=== PATIENT | female | born 1940 | race Caucasian/White ===

== ENCOUNTER 2018-08-11 10:09 | Emergency (ER) | payer OTHER, BC ==
[2018-08-11 12:14] LABS: Urine Bacteria <20 /HPF (<20); Urine Culture Reflex Order NOT NEEDED; Urine RBC <5 /HPF (NONE SEEN)
--- NOTE | 2018-08-11 13:27 | EDPHYS ---
Physician Documentation [facility] Name: Dinora Lea Age: 78 yrs Sex: Female : 1940 Arrival Date: 08/11/2018 Time: 10:13 Bed 16 Private MD: Andrea Rowell HPI: 08/11 11:56 This 78 yrs old Female presents to ER via Ambulatory with complaints of snw Vaginal Bleeding. 11:56 The patient presents with vaginal bleeding that is light, with no clots. Onset: The snw symptoms/episode began/occurred suddenly, this morning. Associated signs and symptoms: The patient has no apparent associated signs or symptoms. Severity of symptoms: At their worst the symptoms were very mild, mild. The patient has not experienced similar symptoms in the past. It is unknown whether or not the patient has recently seen a physician. + blood thinner, Savaysa. Historical: - Allergies: 10: Xarelto; aj1 10:23 Pradaxa; aj1 - Home Meds: 10:23 Multaq 400 mg oral tab 0.5 tab 2 times per day [Active]; levothyroxine 100 mcg tab 1 aj1 tab once daily [Active]; pravastatin 40 mg oral tab 1 tab once daily [Active]; losartan-hydrochlorothiazide 100-12.5 mg oral tab 1 tab once daily [Active]; Savaysa 60 mg oral tab 1 tab once daily [Active]; atenolol 50 mg Oral tab 1 tab once daily [Active]; clonazepam 1 mg Oral tab 1 tab once daily [Active]; doxycycline hyclate 50 mg Oral cap 1 cap once daily [Active]; amlodipine 2.5 mg tab 1 tab once daily [Active]; Vitamin D Oral 2000 unit daily [Active]; asthmanex 220 mcg as needed [Active]; pro air 90 mcg as needed [Active]; tramadol 50 mg Oral tab 1 tab as needed [Active]; - PMHx: 10:23 Atrial Fib; Hypothyroidism; Hypertension; Hyperlipidemia; Asthma; aj1 - PSHx: 10:23 bunion surgery; breast reduction; back surgery; cataract surgery; aj1 - Immunization history:: Flu vaccine is up to date. - Social history:: Smoking status: Patient/guardian denies using tobacco. - Ebola Screening: : Patient denies travel to an Ebola-affected area in the 21 days before illness onset. ROS: 11:42 Constitutional: Negative for fever, chills, and weight loss, Eyes: Negative for injury, snw pain, redness, and discharge, ENT: Negative for injury, pain, and discharge, Neck: Negative for injury, pain, and swelling, Cardiovascular: Negative for chest pain, palpitations, and edema, Respiratory: Negative for shortness of breath, cough, wheezing, and pleuritic chest pain, Abdomen/GI: Negative for abdominal pain, nausea, vomiting, diarrhea, and constipation, Back: Negative for injury and pain, : Negative for injury, discharge, and swelling, + bright red vaginal bleeding this am MS/Extremity: Negative for injury and deformity, Skin: Negative for injury, rash, and discoloration, Neuro: Negative for headache, weakness, numbness, tingling, and seizure. Exam: 11:42 Constitutional: This is a well developed, well nourished patient who is awake, alert, snw and in no acute distress. Head/Face: Normocephalic, atraumatic. Eyes: Pupils equal round and reactive to light, extra-ocular motions intact. Lids and lashes normal. Conjunctiva and sclera are non-icteric and not injected. Cornea within normal limits. Periorbital areas with no swelling, redness, or edema. ENT: Nares patent. No nasal discharge, no septal abnormalities noted. Tympanic membranes are normal and external auditory canals are clear. Oropharynx with no redness, swelling, or masses, exudates, or evidence of obstruction, uvula midline. Mucous membranes moist. Neck: Trachea midline, no thyromegaly or masses palpated, and no cervical lymphadenopathy. Supple, full range of motion without nuchal rigidity, or vertebral point tenderness. No Meningismus. Chest/axilla: Normal chest wall appearance and motion. Nontender with no deformity. No lesions are appreciated. Cardiovascular: Regular rate and rhythm with a normal S1 and S2. No gallops, murmurs, or rubs. Normal PMI, no JVD. No pulse deficits. Respiratory: Lungs have equal breath sounds bilaterally, clear to auscultation and percussion. No rales, rhonchi or wheezes noted. No increased work of breathing, no retractions or nasal flaring. Abdomen/GI: Soft, non-tender, with normal bowel sounds. No distension or tympany. No guarding or rebound. No evidence of tenderness throughout. guaiac negative Back: No spinal tenderness. No costovertebral tenderness. Full range of motion. Skin: Warm, dry with normal turgor. Normal color with no rashes, no lesions, and no evidence of cellulitis. MS/ Extremity: Pulses equal, no cyanosis. Neurovascular intact. Full, normal range of motion. Neuro: Awake and alert, GCS 15, oriented to person, place, time, and situation. Cranial nerves II-XII grossly intact. Motor strength 5/5 in all extremities. Sensory grossly intact. Cerebellar exam normal. Normal gait. Psych: Awake, alert, with orientation to person, place and time. Behavior, mood, and affect are within normal limits. Vital Signs: 10:23 BP 158 / 94; Pulse 58; Resp 18; Temp 98.0; Pulse Ox 98% on R/A; Weight 87.54 kg (R); aj1 Height 5 ft. 4 in. (162.56 cm); Pain 0/10; 11:23 BP 135 / 68; Pulse 60; Resp 17; Temp 98.0(O); Pulse Ox 100% ; Pain 0/10; rb1 12:20 BP 136 / 48; Pulse 58; Resp 16; Temp 98.1(O); Pulse Ox 98% on R/A; Pain 0/10; rb1 13:20 BP 141 / 61; Pulse 62; Resp 17; Temp 98.3(O); Pulse Ox 100% on R/A; Pain 0/10; rb1 10:23 Body Mass Index 33.13 (87.54 kg, 162.56 cm) aj1 MDM: 11:02 Patient medically screened. snw 13:46 Data reviewed: vital signs, nurses notes. Data interpreted: Pulse oximetry: on room air snw is 100 %. Interpretation: normal. Counseling: I had a detailed discussion with the patient and/or guardian regarding: the historical points, exam findings, and any diagnostic results supporting the discharge/admit diagnosis, the presence of at least one elevated blood pressure reading (>120/80) during this emergency department visit, lab results, radiology results, the need for outpatient follow up, to return to the emergency department if symptoms worsen or persist or if there are any questions or concerns that arise at home. Special discussion: Based on the history and exam findings, there is no indication for further emergent testing or inpatient evaluation. I discussed with the patient/guardian the need to see the OB Gyne specialist for further evaluation of the symptoms. 08/11 11:02 Order name: Urine Culture [facility] 08/11 11:02 Order name: Urine Microscopic Only; Complete Time: 12:17 [facility] 08/11 11:02 Order name: Cath; Complete Time: 12:13 [facility] 08/11 11:02 Order name: Urine Dipstick-Ancillary (obtain specimen); Complete Time: 12:13 [facility] 08/11 11:53 Order name: US Pelvis Complete; Complete Time: 13:58 [facility] 08/11 12:13 Order name: Urine Dipstick--Ancillary (enter results) ms Administered Medications: No medications were administered Disposition: 08/12 06:44 Co-signature as Attending Physician, Andrea Birmingham MD I agree with the assessment and lottie plan of care. Disposition: 08/11/18 13:26 Discharged to Home. Impression: Abnormal uterine and vaginal bleeding, unspecified. - Condition is Stable. - Discharge Instructions: Abnormal Uterine Bleeding, Hysteroscopy, Endometrial Biopsy. - Medication Reconciliation Form, Thank You Letter, Antibiotic Education, Prescription Opioid Use form. - Follow up: Private Physician; When: 2 - 3 days; Reason: Recheck today's complaints, Continuance of care, Re-evaluation by your physician. Follow up: Emergency Department; When: As needed; Reason: Worsening of condition. Signatures: Dispatcher [employer] EDDwan Jones RN RN aj1 Andrea Birmingham MD MD cha Therrien, Shelly, [employer]-C [employer]nw Chaparrita Duvall, RN RN rb1 Corrections: (The following items were deleted from the chart) 08/11 13:48 13:26 08/11/2018 13:26 Discharged to Home. Impression: Abnormal uterine and vaginal rb1 bleeding, unspecified. Condition is Stable. Forms are Medication Reconciliation Form, Thank You Letter, Antibiotic Education, Prescription Opioid Use. Follow up: Private Physician; When: 2 - 3 days; Reason: Recheck today's complaints, Continuance of care, Re-evaluation by your physician. Follow up: Emergency Department; When: As needed; Reason: Worsening of condition. snw 13:58 11:42 Constitutional: This is a well developed, well nourished patient who is awake, snw alert, and in no acute distress. Head/Face: Normocephalic, atraumatic. Eyes: Pupils equal round and reactive to light, extra-ocular motions intact. Lids and lashes normal. Conjunctiva and sclera are non-icteric and not injected. Cornea within normal limits. Periorbital areas with no swelling, redness, or edema. ENT: Nares patent. No nasal discharge, no septal abnormalities noted. Tympanic membranes are normal and external auditory canals are clear. Oropharynx with no redness, swelling, or masses, exudates, or evidence of obstruction, uvula midline. Mucous membranes moist. Neck: Trachea midline, no thyromegaly or masses palpated, and no cervical lymphadenopathy. Supple, full range of motion without nuchal rigidity, or vertebral point tenderness. No Meningismus. Chest/axilla: Normal chest wall appearance and motion. Nontender with no deformity. No lesions are appreciated. Cardiovascular: Regular rate and rhythm with a normal S1 and S2. No gallops, murmurs, or rubs. Normal PMI, no JVD. No pulse deficits. Respiratory: Lungs have equal breath sounds bilaterally, clear to auscultation and percussion. No rales, rhonchi or wheezes noted. No increased work of breathing, no retractions or nasal flaring. Abdomen/GI: Soft, non-tender, with normal bowel sounds. No distension or tympany. No guarding or rebound. No evidence of tenderness throughout. Back: No spinal tenderness. No costovertebral tenderness. Full range of motion. Skin: Warm, dry with normal turgor. Normal color with no rashes, no lesions, and no evidence of cellulitis. MS/ Extremity: Pulses equal, no cyanosis. Neurovascular intact. Full, normal range of motion. Neuro: Awake and alert, GCS 15, oriented to person, place, time, and situation. Cranial nerves II-XII grossly intact. Motor strength 5/5 in all extremities. Sensory grossly intact. Cerebellar exam normal. Normal gait. Psych: Awake, alert, with orientation to person, place and time. Behavior, mood, and affect are within normal limits. snw
--- NOTE | 2018-08-11 13:27 | ER ---
Nurse's Notes [facility] Name: Dinora Lea Age: 78 yrs Sex: Female : 1940 Arrival Date: 08/11/2018 Time: 10:13 Bed 16 Private MD: Diagnosis: Abnormal uterine and vaginal bleeding, unspecified Presentation: 08/11 10:17 Presenting complaint: Patient states: "I was getting ready to go to [facility] and I went aj1 to the bathroom and when I wiped it was full of blood." Patient reports vaginal bleeding. Transition of care: patient was not received from another setting of care. Onset of symptoms was August 11, 2018. Risk Assessment: Do you want to hurt yourself or someone else? Patient reports no desire to harm self or others. Initial Sepsis Screen: Does the patient meet any 2 criteria? No. Patient's initial sepsis screen is negative. Does the patient have a suspected source of infection? No. Patient's initial sepsis screen is negative. Care prior to arrival: None. 10:17 Method Of Arrival: Ambulatory aj1 10:17 Acuity: GINGER 3 aj1 Triage Assessment: 10:23 General: Appears in no apparent distress. comfortable, Behavior is calm, cooperative, aj1 appropriate for age. Pain: Denies pain. Neuro: Level of Consciousness is awake, alert, obeys commands. Cardiovascular: Patient's skin is warm and dry. Respiratory: Airway is patent Respiratory effort is even, unlabored, Respiratory pattern is regular, symmetrical. : Reports burning with urination, vaginal bleeding that is bright red. Derm: Skin is pink, warm \\T\\ dry. normal. Historical: - Allergies: 10:23 Xarelto; aj1 10:23 Pradaxa; aj1 - Home Meds: 10:23 Multaq 400 mg oral tab 0.5 tab 2 times per day [Active]; levothyroxine 100 mcg tab 1 aj1 tab once daily [Active]; pravastatin 40 mg oral tab 1 tab once daily [Active]; losartan-hydrochlorothiazide 100-12.5 mg oral tab 1 tab once daily [Active]; Savaysa 60 mg oral tab 1 tab once daily [Active]; atenolol 50 mg Oral tab 1 tab once daily [Active]; clonazepam 1 mg Oral tab 1 tab once daily [Active]; doxycycline hyclate 50 mg Oral cap 1 cap once daily [Active]; amlodipine 2.5 mg tab 1 tab once daily [Active]; Vitamin D Oral 2000 unit daily [Active]; asthmanex 220 mcg as needed [Active]; pro air 90 mcg as needed [Active]; tramadol 50 mg Oral tab 1 tab as needed [Active]; - PMHx: 10:23 Atrial Fib; Hypothyroidism; Hypertension; Hyperlipidemia; Asthma; aj1 - PSHx: 10:23 bunion surgery; breast reduction; back surgery; cataract surgery; aj1 - Immunization history:: Flu vaccine is up to date. - Social history:: Smoking status: Patient/guardian denies using tobacco. - Ebola Screening: : Patient denies travel to an Ebola-affected area in the 21 days before illness onset. Screenin:05 Abuse screen: Denies threats or abuse. Nutritional screening: No deficits noted. rb1 Tuberculosis screening: No symptoms or risk factors identified. Fall Risk None identified. Assessment: 11:05 General: Appears in no apparent distress. comfortable, Behavior is calm, cooperative, rb1 Denies fever. Pain: Denies pain. Neuro: Level of Consciousness is awake, alert, obeys commands, Oriented to person, place, time, situation. Cardiovascular: Capillary refill < 3 seconds is brisk in bilateral fingers. Respiratory: Airway is patent Respiratory effort is even, unlabored, Respiratory pattern is regular, symmetrical. GI: No signs and/or symptoms were reported involving the gastrointestinal system. : Reports burning with urination, vaginal bleeding that is bright red, since this morning, No clots. Derm: Skin is pink, warm \\T\\ dry. Musculoskeletal: Range of motion: intact in all extremities. 12:00 Reassessment: Patient appears in no apparent distress at this time. No changes from rb1 previously documented assessment. Family at bedside. 13:00 Reassessment: Patient appears in no apparent distress at this time. Patient and/or rb1 family updated on plan of care and expected duration. Pain level reassessed. Patient is alert, oriented x 3, equal unlabored respirations, skin warm/dry/pink. Provider at bedside. Patient denies pain at this time. Vital Signs: 10:23 BP 158 / 94; Pulse 58; Resp 18; Temp 98.0; Pulse Ox 98% on R/A; Weight 87.54 kg (R); aj1 Height 5 ft. 4 in. (162.56 cm); Pain 0/10; 11:23 BP 135 / 68; Pulse 60; Resp 17; Temp 98.0(O); Pulse Ox 100% ; Pain 0/10; rb1 12:20 BP 136 / 48; Pulse 58; Resp 16; Temp 98.1(O); Pulse Ox 98% on R/A; Pain 0/10; rb1 13:20 BP 141 / 61; Pulse 62; Resp 17; Temp 98.3(O); Pulse Ox 100% on R/A; Pain 0/10; rb1 10:23 Body Mass Index 33.13 (87.54 kg, 162.56 cm) aj1 ED Course: 10:13 Patient arrived in ED. as 10:18 Triage completed. aj1 10:23 Arm band placed on Patient placed in waiting room, Patient notified of wait time. aj1 11:02 Shivani Ramirez FNP-C is PHCP. snw 11:02 Andrea Birmingham MD is Attending Physician. snw 11:05 Patient has correct armband on for positive identification. Placed in gown. Bed in low rb1 position. Call light in reach. Side rails up X 1. Pulse ox on. NIBP on. Warm blanket given. 11:13 Chaparrita Duvall, RN is Primary Nurse. rb1 11:50 Straight cath inserted, using sterile technique, 16 Fr. Specimen obtained. rb1 12:54 Ultrasound completed. Patient tolerated well. sg3 12:55 US Pelvis Complete In Process Unspecified. EDMS 13:47 No provider procedures requiring assistance completed. Patient did not have IV access rb1 during this emergency room visit. Administered Medications: No medications were administered Outcome: 13:26 Discharge ordered by . snw 13:47 Discharged to home ambulatory, with family. rb1 13:47 Condition: stable 13:47 Discharge instructions given to patient, Instructed on discharge instructions, follow up and referral plans. Demonstrated understanding of instructions, follow-up care, Prescriptions given X none 13:48 Patient left the ED. rb1 Signatures: Dispatcher [employer] EDMS Dawn Cotton RN RN aj1 Shivani Ramirez FNP-C FNP-Janelle Welsh Shelby, RN RN Chaparrita Duvall, RN RN rb1 Claudette Gracia sg3 Corrections: (The following items were deleted from the chart) 12:14 11:50 Straight cath inserted, using sterile technique, 16 Fr. Specimen obtained. ss ss
--- NOTE | 2018-08-11 13:51 | RAD REPORT ---
EXAM DESCRIPTION: US - Pelvis Complete - 08/11/2018 12:56 pm CLINICAL HISTORY: Vaginal bleeding, pelvic pain COMPARISON: None. TECHNIQUE: Transabdominal pelvic sonography was performed. FINDINGS: Endometrium measures up to 5 mm in thickness. No discrete endometrial mass or polyp identi fiable. No myometrial masses seen. Uterus is 5.9 x 2.5 x 5.3 cm. Neither ovary was identifiable likely atrophic and obscured by bowel. No adnexal mass seen. No blood or fluid in the cul de sac. IMPRESSION: Endometrium is 5 mm in thickness with homogeneous echogenicity. No endometrial mass or p olyp identifiable. No myometrial mass in a normal-sized uterus. Nonvisualization of both ovaries. This is likely due to atrophy and adjacent bowel. No adnexal mass.
[2018-08-11 13:59] LABS: Urine Blood TRACE (NEG); Urine Glucose NEGATIVE (NEG); Urine Protein NEGATIVE (NEG); Urine Specific Gravity 1.015 (1.005-1.030)
== END 2018-08-11 13:48 | disposition home or self-care (01) ==
LOC: ER 10:09
DX: N93.9 Abnormal uterine and vaginal bleeding, unspecified (principal); I48.91 Unspecified atrial fibrillation; E03.9 Hypothyroidism, unspecified; I10 Essential (primary) hypertension; E78.5 Hyperlipidemia, unspecified; J45.909 Unspecified asthma, uncomplicated; Z88.8 Allergy status to other drugs, medicaments and biological substances
CPT/HCPCS: 51702; 76856; 81003; 81015; 87086; 87088; 99284

== ENCOUNTER 2019-07-21 15:15 | Emergency (ER) | payer OTHER, BC ==
--- OUTSIDE RECORDS SUMMARY | 2019-07-21 15:18 | XMS REPORT ---
:1940 Author Organization [facility] t Address [address] [place] [address] Care Team Providers Name Role Phone Unavailable Unavailable Unavailable Payers Payer Name Policy Type Policy Number Effective Date Expiration D ate Problems This patient has no known problems. Allergies, Adverse Reactions, Alerts Allergy Name Allergy Status Severity Reaction(s) Onset Inactive Treat ing Comments Type Date Date Clinician dabigatran DA Active MO 2018-08 etexilate - 00:00:0 0 rivaroxaban DA Active MO 2018-08 00:00:0 0 Medications This patient has no known medications. Results Test Description Test Time Test Comments Text Results Atomic Results Result Comments SURG 2018-08-30 RUN DATE: 16:31:00 08/30/18 [facility] - LAB *LIVE* PAGE 1 RUN TIME: 1632 Specimen Inquiry RUN USER: INTERFACE PATIENT: MARIBELL GHOTRA LOC: [facility] U #: [id number] AGE/SX: 78/F ROOM: RE08/29/18REG DR: Rajni Smith : BED: DIS: STATUS: DEP [facility] TLOC: SPEC #: [id number] RECD: 08/29/18 STATUS: TEODORA RE #: [id number] ISADORA: -[id number]: Rajni Smith MD ENTERED: 08/29/18 SP TYPE: SURG O THR DR: Julienne Best MD ORDERED: SURG PATH LVL 07/09 COPIES TO: Rajni Smith MD [address] [place] [id number] Julienne Best MD [address] [address] HISTOLOGY: TISSUE ID BLK PCS RYAN LEV PROCEDURE DISPOSITION ____ ___ ___ ___ ENDOMETRIUM, NO A 1 ENDOMETRIUM, NO B 1 PROCE DURES: SURG PATH LVL 4 (08/29/18) TISSUES: A. ENDOMETRIUM, NOS - ENDOMETRIAL POLY P B. ENDOMETRIUM, NOS - ENDOMETRIAL CURRETING CLINICAL HISTORY POST MENOPAUSAL BLEED ING -N95.0 CPT CODES CPT CODE(S): 55692O1 , , , , , , FINAL DIAGNOSIS A. Uterus, endometrium, polypectomy: BENIGN ENDOCERVI RAJI POLYP WITH NABOTHIAN CYSTS B. Uterus, endometrium, curettage: BENIGN, HIGHLY FRAGMENTE D SQUAMOUS ECTOCERVIX, GLANDULAR ENDOCERVIX, AND ENDOMETRIAL GLANDS CONTINUED ON NEXT PAGE RUN DATE: 08/30/18 [facility] - LAB *LIVE* PAGE 2 RUN TIME: 1632 Specimen Inquiry RUN USER: INTERFACE SPEC #: [facility]:[id number] PATIENT: MARIBELL LEONG #[id number] (Continued) GROSS [place] CRIPTION A. Endometrial polyp. Received in formalin is a reyna polypoid tissue fragment, 1.0 x 0.8 x 0.3 cm. The specimen is trisected and reveals dense reyna soft tissue. The entire specimen submitted as A. B. Endometrial curettings. Received in formalin are fragments of brown soft tissue admixed with dark brown blood clots and hemorrhagic mucoid material, 0.6 x 0.5 x 0.2 cm in aggr egate. The entire specimen submitted as B. ba/nr Grossing performed at [facility] Pathology, [address], [address], [place], [place] [address]. Irrigation Technician: Mau Edwards M.D. MICROSCOPIC DESCRIPTION A. Endometrial polyp. Sections demonstrate a polypoid segment of tissu e consisting of endocervical mucosa with nabothian cysts. Edematous stroma is also identified. No endometrial tissue is present. No malignant features are seen. B. Endometrial curettings. Sect ions demonstrate fragments of endocervical glands and squamous ectocervix. Scant fragments of fra gmented endometrial glands are also identified. Prominent hemorrhage is seen. The endometrial gl and tissue is insufficient for endometrial dating. No evidence of hyperplasia or atypia is seen. Signed SIGNATURE ON FILE Stevie Alexander 08/30/18 1631 END OF REPORT BASIC METABOLIC PANEL 2018-08-29 11:29:00 Test Item Value Reference Range Comments SODIUM (test code = NA) 134 mmol/L 134-147 POTASSIUM (test code = K) 4.5 mmol/L 3.4-5.0 CHLORIDE (test code = CL) 99 mmol/L 100-108 CARBON DIOXIDE (test code = CO2) 27 mmol/L 21-32 ANION GAP (test code = GAP) 8.0 GAP calc 4.0-15.0 GLUCOSE (test code = GLU) 106 MG/DL 70-110 BLOOD UREA NITROGEN (test code = BUN) 11 MG/DL 7-18 GLOMERULAR FILTRATION RATE (test code = GFR) 46 estGFR >60 CREATININE (test code = CREAT) 1.2 MG/DL 0.6-1.0 CALCIUM (test code = CA) 9.5 MG/DL 8.5-10.1 CBC W/AUTO [id number] 11:27:00 Test Item Value Reference Range Comments WHITE BLOOD CELL (test code = WBC) 8.0 K/mm3 3.5-11.0 RED BLOOD CELL (test code = RBC) 4.12 M/mm3 4.70-6.10 HEMOGLOBIN (test code = HGB) 13.2 G/DL 10.4-14.9 HEMATOCRIT (test code = HCT) 38.3 % 31.5-44.1 MEAN CELL VOLUME (test code = MCV) 93.0 Fl 84.5-98.6 MEAN CELL HGB (test code = MCH) 32.0 pg 27.0-34.2 MEAN CELL HGB CONCETRATION (test code = MCHC) 34.5 G/DL 31 .5-34.0 RED CELL DISTRIBUTION WIDTH (test code = RDW) 11.9 SD 11 .5-14.5 PLATELET COUNT (test code = PLT) 232.0 K/mm3 150-450 MEAN PLATELET VOLUME (test code = MPV) 10.90 fL 7.0-10.5 NEUTROPHIL % (test code = NT%) 52.4 % 40-76 LYMPHOCYTE % (test code = LY%) 35.5 % 20.5-51.1 MONOCYTE % (test code = MO%) 10.2 % 1.7-9.3 EOSINOPHIL % (test code = EO%) 1.5 % 0.0-6.0 BASOPHIL % (test code = BA%) 0.4 % 0.0-2.0 NEUTROPHIL # (test code = NT#) 4.21 K/mm3 1.8-7.6 LYMPHOCYTE # (test code = LY#) 2.9 K/mm3 0.6-3.2 MONOCYTE # (test code = MO#) 0.8 K/mm3 0.3-1.1 EOSINOPHIL # (test code = EO#) 0.1 K/mm3 0.0-0.4 BASOPHIL # (test code = BA#) 0.0 K/mm3 0.0-0.1 MANUAL DIFF REQUIRED (test code = MDIFF) NO DIFF/SCN CRITERI A PROTHROMBIN [id number] 11:18:00 Test Item Value Reference Range Comments PT PATIENT (test code = PTP) 11.3 SECONDS 9.3-12.9 INTERNATIONAL NORMAL RATIO (test code = INR) 0.98 INR Unit 0.8 -1.2 THROMBOPLASTIN TIME [id number] 11:18:00 Test Item Value Reference Range Comments THROMBOPLASTIN TIME PARTIAL (test code = PTT) 40.4 SECONDS 26 -35
[2019-07-21] MEDS ORDERED: NA CHLORIDE 0.9% 1,000 ML ONE (15:49)
[2019-07-21 16:08] LABS: Urine Bacteria NONE SEEN /HPF (<20); Urine Culture Reflex Order NOT NEEDED; Urine Mucus 1+ /HPF (NONE SEEN)
[2019-07-21 16:08] LABS: Urine Blood TRACE (NEG); Urine Glucose NEGATIVE (NEG); Urine Protein NEGATIVE (NEG); Urine Specific Gravity 1.025 (1.005-1.030)
[2019-07-21 16:10] LABS: Absolute Lymphocytes (CBC) 1.8 K/uL (0.7-4.9); Basophils % 0.5 % (0-1.3); Hematocrit 37.6 % (36.0-45.0); Lymphocytes % 19.5 % (15.3-44.8); MPV 7.8 fL (7.6-11.3); RBC Red Blood Cell Count 4.04 M/uL (3.86-4.86)
[2019-07-21 16:12] LABS: Protime INR 1.91
[2019-07-21 16:27] LABS: Albumin 4.2 g/dL (3.4-5.0); Bilirubin Direct 0.3 mg/dL (0-0.2); Bilirubin Total 0.9 mg/dL (0.2-1.0); Potassium 3.6 mmol/L (3.5-5.1); Protein, Total 7.8 g/dL (6.4-8.2)
--- NOTE | 2019-07-21 17:03 | RAD REPORT ---
EXAM DESCRIPTION: CT - Abdomen Pelvis Wo Contrast - 07/21/2019 4:47 pm CLINICAL HISTORY: ABD PAIN COMPARISON: Abdomen Pelvis W Contrast dated 07/16/2019 TECHNIQUE: Axial [address] imaging of the abdomen and pelvis was performed without IV contrast. No IV contrast was given because of allergy, abnormal renal function, patient refusal or physician re quest. No oral contrast administered. All CT scans are performed using dose optimization technique as appropriate and may include automated exposure control or mA/KV adjustment according to patient size. FINDINGS: No suspicious findings in the lung bases. The liver, spleen and pancreas show no suspicious findings on non-contrast imaging. Gallbladder and b iliary tree are also without suspicious finding. No hydronephrosis or suspicious renal mass. No significant adrenal finding. Isodense renal masses an d pyelonephritis cannot be excluded in the absence of IV contrast. Phleboliths are seen along the pel raj floor. Uterus and ovaries show no suspicious findings. Urinary bladder is only partially filled. Air is seen within the lumen. This is usually associated wi th the catheter procedure rather than a gas-forming organism. This needs correlation with any procedu res performed. No dilated bowel loops or bowel wall thickening. No appendicitis findings. No free air, free fluid or inflammatory stranding. No hernia, mass or bulky lymphadenopathy. Disc and bony degenerative changes are present. No acute or pathologic bone process seen. IMPRESSION: No bowel obstruction, free air or surgically emergent finding identifiable. GI or CARPENTRY SUPERVISOR pr ocess seen. Air is present in the partially filled urinary bladder. This is usually associated with a catheter pr ocedure rather than gas-forming infection within the bladder. Correlation is needed with any such pro cedure performed. No hydronephrosis, suspicious mass or other acute renal finding. Full assessment is limited is the absence of IV contrast.
--- NOTE | 2019-07-21 17:46 | EDPHYS ---
Physician Documentation [facility] Name: Dinora Lea Age: 79 yrs Sex: Female : 1940 Arrival Date: 07/21/2019 Time: 15:17 Bed 15 Private MD: Andrea Rowell HPI: 07/20 15:49 This 79 yrs old Female presents to ER via Wheelchair with complaints of pm1 Abdominal Pain. 15:49 The patient presents with abdominal pain in the lower abdomen. Onset: The pm1 symptoms/episode began/occurred 3 week(s) ago. The symptoms do not radiate. Associated signs and symptoms: Pertinent positives: diarrhea, nausea, Pertinent negatives: dysuria, fever. The symptoms are described as "bloating and discomfort". Modifying factors: The symptoms are alleviated by nothing, the symptoms are aggravated by food. The patient has been recently seen by a physician: Dr. Smith today. Patient with cystoscopy today. Dr. Smith sent the patient to the ER for further evaluation. Historical: - Allergies: 15:44 Pradaxa; iw 15:44 Xarelto; iw - Home Meds: 15:44 Multaq 400 mg Oral tab 0.5 tab 2 times per day [Active]; levothyroxine 100 mcg tab 1 iw tab once daily [Active]; pravastatin 40 mg Oral tab 1 tab once daily [Active]; losartan-hydrochlorothiazide 100-12.5 mg Oral tab 1 tab once daily [Active]; Savaysa 60 mg Oral tab 1 tab once daily [Active]; amlodipine 2.5 mg tab 1 tab once daily [Active]; Vitamin D Oral 2000 unit daily [Active]; atenolol 50 mg Oral tab 1 tab once daily [Active]; clonazepam 1 mg Oral tab 1 tab once daily [Active]; asthmanex 220 mcg as needed [Active]; doxycycline hyclate 50 mg Oral cap 1 cap once daily [Active]; - PMHx: 15:44 Asthma; Atrial Fib; Hyperlipidemia; Hypertension; Hypothyroidism; ADD/ADHD; iw - PSHx: 15:44 bunion surgery; breast reduction; back surgery; cataract surgery; iw - Immunization history:: Adult Immunizations up to date. - Social history:: Smoking status: Patient denies any tobacco usage or history of. ROS: 15:49 Constitutional: Negative for fever, chills, and weight loss, Neck: Negative for injury, pm1 pain, and swelling, Cardiovascular: Negative for chest pain, palpitations, and edema, Respiratory: Negative for shortness of breath, cough, wheezing, and pleuritic chest pain. 15:49 Back: Negative for injury and pain, : Negative for injury, bleeding, discharge, and swelling, MS/Extremity: Negative for injury and deformity, Skin: Negative for injury, rash, and discoloration, Neuro: Negative for headache, weakness, numbness, tingling, and seizure. 15:49 Abdomen/GI: Positive for abdominal pain, nausea, diarrhea, Negative for vomiting, constipation. Exam: 15:49 Constitutional: This is a well developed, well nourished patient who is awake, alert, pm1 and in no acute distress. Head/Face: Normocephalic, atraumatic. Neck: Trachea midline, no thyromegaly or masses palpated, and no cervical lymphadenopathy. Supple, full range of motion without nuchal rigidity, or vertebral point tenderness. No Meningismus. Chest/axilla: Normal chest wall appearance and motion. Nontender with no deformity. No lesions are appreciated. 15:49 Back: No spinal tenderness. No costovertebral tenderness. Full range of motion. Skin: Warm, dry with normal turgor. Normal color with no rashes, no lesions, and no evidence of cellulitis. MS/ Extremity: Pulses equal, no cyanosis. Neurovascular intact. Full, normal range of motion. 15:49 Cardiovascular: Exam negative for acute changes, Rate: normal, Pulses: no pulse deficits are appreciated, Edema: is not appreciated. 15:49 Respiratory: Exam negative for acute changes, respiratory distress, shortness of breath. 15:49 Abdomen/GI: Exam negative for acute changes, Inspection: abdomen appears normal, Palpation: abdomen is soft and non-tender, in all quadrants, mass, is not appreciated, rebound tenderness, is not appreciated. 15:49 Neuro: Exam negative for acute changes, Orientation: is normal, Mentation: is normal, Motor: is normal, moves all fours. Vital Signs: 15:36 BP 149 / 72; Pulse 60; Resp 16 S; Temp 97.7(TE); Pulse Ox 99% on R/A; Weight 84.82 kg; iw Height 5 ft. 5 in. (165.10 cm); Pain 0/10; 16:34 BP 131 / 50; Pulse 53; Resp 17 S; Pulse Ox 100% on R/A; jl7 17:24 BP 130 / 50; Pulse 55; Resp 16 S; Pulse Ox 100% on R/A; jl7 15:36 Body Mass Index 31.12 (84.82 kg, 165.10 cm) iw MDM: 15:20 Patient medically screened. pm1 17:22 Data reviewed: vital signs. Data interpreted: Pulse oximetry: on room air is 100 %. pm1 Interpretation: normal. 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 07/20 15:35 Order name: Basic Metabolic Panel; Complete Time: 16:30 pm1 07/20 15:35 Order name: CBC with Diff; Complete Time: 16:30 pm1 07/20 15:35 Order name: Creatinine for Radiology; Complete Time: 16:30 pm1 07/20 15:35 Order name: Hepatic Function; Complete Time: 16:30 pm1 07/20 15:35 Order name: Lipase; Complete Time: 16:30 pm1 07/20 15:36 Order name: Urine Microscopic Only; Complete Time: 16:15 pm1 07/20 15:35 Order name: IV Saline Lock; Complete Time: 16:26 pm1 07/20 15:42 Order name: Lactate; Complete Time: 16:34 pm1 07/20 15:47 Order name: PT-INR; Complete Time: 16:30 pm1 07/20 15:58 Order name: Urine Dipstick--Ancillary (enter results); Complete Time: 16:15 bd 07/20 16:32 Order name: Abdomen ; Complete Time: 17:21 EDMS 07/20 15:35 Order name: Labs collected and sent; Complete Time: 16:26 pm1 07/20 15:35 Order name: Urine Dipstick-Ancillary (obtain specimen); Complete Time: 16:26 pm1 Administered Medications: 16:05 Drug: NS 0.9% 1000 ml Route: IV; Rate: 1000 ml; Site: left forearm; 7 16:45 Follow up: IV Pause: 07/21/2019 16:45; IV Pause Reason: Patient to CT jl7 17:20 Follow up: IV Resume: 07/21/2019 17:20; IV Resume Reason: Patient returned from CT jl7 18:32 Follow up: Response: No adverse reaction; IV Status: Completed infusion; IV Intake: jl7 1000ml 18:10 Drug: Bentyl 20 mg Route: PO; jl7 18:32 Follow up: Response: No adverse reaction jl Disposition: 07/21 13:59 Co-signature as Attending Physician, Andrea Birmingham MD I agree with the assessment and [facility] plan of care. Disposition: 07/21/19 17:44 Discharged to Home. Impression: Unspecified abdominal pain, Dehydration. - Condition is Stable. - Discharge Instructions: Abdominal Pain, Adult, Dehydration, Elderly, Rehydration, Elderly. - Prescriptions for Bentyl 20 mg Oral Tablet - take 1 tablet by ORAL route every 6 hours As needed; 20 tablet. - Medication Reconciliation Form, Thank You Letter, Antibiotic Education, Prescription Opioid Use form. - Follow up: Emergency Department; When: As needed; Reason: Worsening of condition. Follow up: Private Physician; When: 2 - 3 days; Reason: Recheck today's complaints, Continuance of care, Re-evaluation by your physician. - Problem is new. - Symptoms have improved. Signatures: Dispatcher [employer] Andrea Haque MD MD cha Williams, Irene, Isaac Thrasher RN, NP GEOSPATIAL APPLICATIONS DEVELOPER pm1 Cristo Adhikari RN RN jl7 Corrections: (The following items were deleted from the chart) 07/20 16:32 15:38 Abdomen Pelvis W Con+CT.RAD.BRZ ordered. [facility] 17:46 17:44 07/21/2019 17:44 Discharged to Home. Impression: Unspecified abdominal pain. pm1 Condition is Stable. Forms are Medication Reconciliation Form, Thank You Letter, Antibiotic Education, Prescription Opioid Use. Follow up: Emergency Department; When: As needed; Reason: Worsening of condition. Follow up: Private Physician; When: 2 - 3 days; Reason: Recheck today's complaints, Continuance of care, Re-evaluation by your physician. Problem is new. Symptoms have improved. pm1 18:33 17:46 07/21/2019 17:44 Discharged to Home. Impression: Unspecified abdominal pain; jl7 Dehydration. Condition is Stable. Discharge Instructions: Abdominal Pain, Adult. Forms are Medication Reconciliation Form, Thank You Letter, Antibiotic Education, Prescription Opioid Use. Follow up: Emergency Department; When: As needed; Reason: Worsening of condition. Follow up: Private Physician; When: 2 - 3 days; Reason: Recheck today's complaints, Continuance of care, Re-evaluation by your physician. Problem is new. Symptoms have improved. pm1
--- NOTE | 2019-07-21 17:46 | ER ---
Nurse's Notes [facility] Name: Dinora Lea Age: 79 yrs Sex: Female : 1940 Arrival Date: 07/21/2019 Time: 15:17 Bed 15 Private MD: Diagnosis: Unspecified abdominal pain;Dehydration Presentation: 07/20 15:36 Chief complaint: Patient states: abd bloating and discomfort X 3 weeks, worse when she iw eats, feels nauseated and has diarrhea when she eats, had CT and labs done Sunday , was seen by Dr. Smith today, had cystoscopy done to look for tumors in her bladder and was negative, also has been having urinary frequency at night. Coronavirus screen: Proceed with normal triage. Patient denies a cough. Patient denies shortness of breath or difficulty breathing. Patient denies measured and/or subjective temperature greater than 100.4F prior to today's visit. Patient denies travel on a cruise ship or to a country the [facility] currently lists as an affected area. Patient denies contact with known and/or suspected case of COVID-19. Ebola Screen: Patient negative for fever greater than or equal to 101.5 degrees Fahrenheit, and additional compatible Ebola Virus Disease symptoms Patient denies exposure to infectious person. Patient denies travel to an Ebola-affected area in the 21 days before illness onset. No symptoms or risks identified at this time. Initial Sepsis Screen: Does the patient meet any 2 criteria? No. Patient's initial sepsis screen is negative. Does the patient have a suspected source of infection? No. Patient's initial sepsis screen is negative. Risk Assessment: Do you want to hurt yourself or someone else? Patient reports no desire to harm self or others. Onset of symptoms was July 07, 2019. 15:36 Method Of Arrival: Wheelchair iw 15:36 Acuity: GINGER 3 iw Historical: - Allergies: 15:44 Pradaxa; iw 15:44 Xarelto; iw - Home Meds: 15:44 Multaq 400 mg Oral tab 0.5 tab 2 times per day [Active]; levothyroxine 100 mcg tab 1 iw tab once daily [Active]; pravastatin 40 mg Oral tab 1 tab once daily [Active]; losartan-hydrochlorothiazide 100-12.5 mg Oral tab 1 tab once daily [Active]; Savaysa 60 mg Oral tab 1 tab once daily [Active]; amlodipine 2.5 mg tab 1 tab once daily [Active]; Vitamin D Oral 2000 unit daily [Active]; atenolol 50 mg Oral tab 1 tab once daily [Active]; clonazepam 1 mg Oral tab 1 tab once daily [Active]; asthmanex 220 mcg as needed [Active]; doxycycline hyclate 50 mg Oral cap 1 cap once daily [Active]; - PMHx: 15:44 Asthma; Atrial Fib; Hyperlipidemia; Hypertension; Hypothyroidism; ADD/ADHD; iw - PSHx: 15:44 bunion surgery; breast reduction; back surgery; cataract surgery; iw - Immunization history:: Adult Immunizations up to date. - Social history:: Smoking status: Patient denies any tobacco usage or history of. Screenin:45 Abuse screen: Denies threats or abuse. Denies injuries from another. Nutritional jl7 screening: No deficits noted. Tuberculosis screening: No symptoms or risk factors identified. Fall Risk IV access (20 points). Total Felder Fall Scale indicates No Risk (0-24 pts). Assessment: 15:45 General: Appears in no apparent distress. uncomfortable, Behavior is calm, cooperative, jl7 appropriate for age. Pain: Denies pain. Neuro: Level of Consciousness is awake, alert, obeys commands, Oriented to person, place, time, situation. Cardiovascular: Patient's skin is warm and dry. Respiratory: Airway is patent Respiratory effort is even, unlabored, Respiratory pattern is regular, symmetrical. GI: Abdomen is round . . Reports bloating, diarrhea. Derm: Skin is pink, warm \T\ dry. 17:00 Reassessment: Patient appears in no apparent distress at this time. No changes from jl7 previously documented assessment. Patient and/or family updated on plan of care and expected duration. Pain level reassessed. Patient is alert, oriented x 3, equal unlabored respirations, skin warm/dry/pink. 17:50 Reassessment: ERP at bedside discussing results and POC. jl7 17:55 Reassessment: Pt will be discharged once fluids are done infusing. jl7 18:18 Reassessment: Pt requesting to speak with ERP again prior to discharge, ERP notified. jl7 18:27 Reassessment: ERP at bedside. jl7 Vital Signs: 15:36 BP 149 / 72; Pulse 60; Resp 16 S; Temp 97.7(TE); Pulse Ox 99% on R/A; Weight 84.82 kg; iw Height 5 ft. 5 in. (165.10 cm); Pain 0/10; 16:34 BP 131 / 50; Pulse 53; Resp 17 S; Pulse Ox 100% on R/A; jl7 17:24 BP 130 / 50; Pulse 55; Resp 16 S; Pulse Ox 100% on R/A; jl7 15:36 Body Mass Index 31.12 (84.82 kg, 165.10 cm) iw ED Course: 15:17 Patient arrived in ED. ag5 15:19 Isaac Haines, ROSELYN is PHCP. pm1 15:19 Andrea Birmingham MD is Attending Physician. pm1 15:36 Cristo Adhikari RN is Primary Nurse. jl7 15:41 Triage completed. iw 15:44 Arm band placed on. iw 15:45 Patient has correct armband on for positive identification. Placed in gown. Bed in low jl7 position. Call light in reach. Side rails up X2. shelter monitor on. Pulse ox on. NIBP on. Warm blanket given. 16:00 Initial lab(s) drawn, by me, sent to lab. Urine collected: clean catch specimen, clear. jl7 Inserted saline lock: 20 gauge in right forearm, using aseptic technique. Blood collected. 16:48 Abdomen In Process Unspecified. EDMS 18:00 No provider procedures requiring assistance completed. jl7 18:33 IV discontinued, intact, bleeding controlled, No redness/swelling at site. Pressure jl7 dressing applied. Administered Medications: 16:05 Drug: NS 0.9% 1000 ml Route: IV; Rate: 1000 ml; Site: left forearm; jl7 16:45 Follow up: IV Pause: 07/21/2019 16:45; IV Pause Reason: Patient to CT jl7 17:20 Follow up: IV Resume: 07/21/2019 17:20; IV Resume Reason: Patient returned from CT jl7 18:32 Follow up: Response: No adverse reaction; IV Status: Completed infusion; IV Intake: jl7 1000ml 18:10 Drug: Bentyl 20 mg Route: PO; jl7 18:32 Follow up: Response: No adverse reaction jl7 Intake: 18:32 IV: 1000ml; Total: 1000ml. jl7 Outcome: 17:44 Discharge ordered by . pm1 18:32 Discharged to home ambulatory. jl7 18:32 Condition: stable 18:32 Discharge instructions given to patient, Instructed on discharge instructions, follow up and referral plans. medication usage, Demonstrated understanding of instructions, follow-up care, medications, Prescriptions given X 1. 18:33 Patient left the ED. jl7 Signatures: Dispatcher [employer] Vikki Jennings RN RN iw Isaac Haines NP COMMUNITY RELATIONS REP pm1 Emily Emmanuel 5 Cristo Adhikari RN RN jl7 Mitzi Sears 5 Corrections: (The following items were deleted from the chart) 18:20 17:57 IV discontinued, Pressure dressing applied, Jaylen Nara
[2019-07-21] MEDS ORDERED: DICYCLOMINE HCL 10 MG CAP ONE (18:19)
[2019-07-21 18:38] VITALS: TEMP 97.7
[2019-07-21 18:40] VITALS: O2SAT 100
[2019-07-21 18:41] VITALS: BP 130/50
== END 2019-07-21 18:33 | disposition home or self-care (01) ==
LOC: ER 15:15
DX: E86.0 Dehydration (principal); I10 Essential (primary) hypertension; E03.9 Hypothyroidism, unspecified; E78.5 Hyperlipidemia, unspecified; I48.91 Unspecified atrial fibrillation; Z88.8 Allergy status to other drugs, medicaments and biological substances
CPT/HCPCS: 85025; 80048; 36415; 85610; 80076; 83605; 83690; 74176; J7030; 81003; 81015; 96360; 96361; 99284

== ENCOUNTER 2022-09-26 15:30 | Inpatient (IN) | payer OTHER, BC ==
[2022-09-26] MEDS ORDERED: FENTANYL CITR 100 MCG/2 ML ONE (16:05)
[2022-09-26] MEDS ORDERED: NA CHLORIDE 0.9% 500 ML ONE (16:05)
[2022-09-26] MEDS ORDERED: ONDANSETRON 4 MG/2 ML VIAL ONE (16:05)
[2022-09-26 16:11] LABS: Protime INR 1.55
[2022-09-26 16:12] LABS: Hematocrit 35.6 % (36.0-45.0); Lymphocytes % 5.1 % (15.3-44.8); MCV 96.9 fL (80-100); MPV 6.7 fL (7.6-11.3); RBC Red Blood Cell Count 3.67 M/uL (3.86-4.86)
[2022-09-26 16:21] LABS: Albumin 3.2 g/dL (3.4-5.0); Bilirubin Direct 0.3 mg/dL (0-0.2); Bilirubin Indirect, Calculated 0.5 mg/dL (0.2-0.8); Bilirubin Total 0.8 mg/dL (0.2-1.0); Magnesium 1.6 mg/dL (1.6-2.4); Potassium 3.3 mEq/L (3.5-5.1); Protein, Total 6.7 g/dL (6.4-8.2); Troponin High Sensitivity 8.4 pg/mL (<58.9)
--- NOTE | 2022-09-26 16:27 | RAD REPORT ---
EXAM DESCRIPTION: Larry Single View09/26/2022 4:06 pm CLINICAL HISTORY: cough COMPARISON: none FINDINGS: The lungs appear clear of acute infiltrate. The heart is normal size IMPRESSION: No acute abnormalities displayed
--- NOTE | 2022-09-26 17:16 | RAD REPORT ---
EXAM DESCRIPTION: CT - Head C Spine Cap Wo Con - 09/26/2022 4:53 pm CLINICAL HISTORY: Fall. Generalized weakness. Head and neck pain. Chest and abdominal pain TECHNIQUE: Computed axial tomography of head, neck, chest, abdomen and pelvis obtained. IV and oral contrast not requested. Coronal and sagittal reconstruction performed. All CT scans are performed using dose optimization technique as appropriate and may include automated exposure control or mA/KV adjustment according to patient size. COMPARISON: CT abdomen 2019 FINDINGS: An intracranial bleed is not seen. Mild to moderate low-density areas within periventricular, deep an d subcortical white matter probably ischemic changes secondary to small vessel disease The ventricles are normal in caliber. An extra-axial fluid collection is not noted. . Fluid within the sinuses/mastoids is not seen. A cervical fracture is not seen. No dislocation is noted. Minimal anterior subluxation C4 on C5-and C 5 on C6. Spondylosis cervical spine The evaluation of mediastinum, maddison, vessels, solid organs and bowel are limited secondary to the lac k of contrast administration. Lungs are generally clear. No pleural effusion. No pericardial effusion No mediastinal or hilar lymphadenopathy The liver,spleen, pancreas, adrenals, and kidneys appear grossly normal. The wall of the ascending colon appears mildly thickened. Mild stranding within the adjacent fat IMPRESSION: No acute intracranial abnormality is seen. A cervical fracture is not visualized. If the patient continues have symptoms to suggest intracrania l/spinal cord pathology MRI be recommended Wall of the ascending colon appears mildly thickened. This may indicate a mild colitis
[2022-09-26 17:44] LABS: Specific Gravity 1.009 (1.005-1.030); Urine Bacteria 20-50 /HPF (<20); Urine Bilirubin NEGATIVE (Negative); Urine Blood Negative (Negative); Urine Clarity Extremely Turbid (Clear); Urine Color Yellow (Yellow); Urine Glucose NEGATIVE (Negative); Urine Mucus Slight /HPF (None Seen); Urine Protein NEGATIVE (Negative); Urine RBC <5 /HPF (None Seen); Urine Urobilinogen Normal (Normal)
[2022-09-26] MEDS ORDERED: Mastisol Adhesive Liq ONE (17:59)
--- NOTE | 2022-09-26 18:24 | ER ---
Nurse's Notes [facility] Name: Dinora Lea Age: 82 yrs Sex: Female : 1940 Arrival Date: 09/26/2022 Time: 15:30 Bed 2 Private MD: Diagnosis: Syncope Near;Weakness;Laceration without foreign body, right lower leg-SKIN TEAR, 12 CM;Indeterminate colitis-RIGHT, MILD;Abdominal pain, unspecified;Elevated white blood cell count;Hypokalemia Presentation: 09/26 15:32 Chief complaint: EMS states: GENERAL WEAKNESS AND RLE SKIN TEAR. Coronavirus screen: At bp this time, the client does not indicate any symptoms associated with coronavirus-19. Ebola Screen: No symptoms or risks identified at this time. Initial Sepsis Screen: Does the patient meet any 2 criteria? No. Patient's initial sepsis screen is negative. Does the patient have a suspected source of infection? No. Patient's initial sepsis screen is negative. Risk Assessment: Do you want to hurt yourself or someone else? Patient reports no desire to harm self or others. Onset of symptoms is unknown. Care prior to arrival: IV initiated. 20 GA, in the right antecubital area, Glucose check: 172. 15:32 Method Of Arrival: [facility] bp 15:32 Acuity: GINGER 3 bp 15:33 Note PT RECENT DC AFTER FALL: ON ABX FOR UTI, DX WITH R RIB FX. bp Triage Assessment: 15:33 General: Appears uncomfortable, Behavior is cooperative, appropriate for age, anxious. bp Pain: Complains of pain in back and right leg. EENT: No deficits noted. Neuro: No deficits noted. Cardiovascular: Rhythm is sinus rhythm. Respiratory: No deficits noted. GI: No signs and/or symptoms were reported involving the gastrointestinal system. : No signs and/or symptoms were reported regarding the genitourinary system. Derm: Wound noted right leg Wound is RLE LATERAL SKIN TEAR. Musculoskeletal: No deficits noted. Historical: - Allergies: 15:33 Pradaxa; bp 15:33 Xarelto; bp - Home Meds: 15:36 amlodipine 2.5 mg tab 1 tab once daily [Active]; furosemide 20 mg Oral tablet daily bp [Active]; clonazepam 1 mg Oral tab 1 tab once daily [Active]; amiodarone 200 mg Oral tablet 1 tab daily [Active]; Savaysa 60 mg Oral tab 1 tab once daily [Active]; pravastatin 40 mg Oral tab 1 tab once daily [Active]; levothyroxine 100 mcg tab 1 tab once daily [Active]; losartan 100 mg oral tablet daily [Active]; lisinopril 2.5 mg Oral tablet daily [Active]; - PMHx: 15:33 ADD/ADHD; Hyperlipidemia; Atrial Fib; Asthma; Hypertension; Hypothyroidism; bp - Immunization history:: Adult Immunizations up to date. - Social history:: Smoking status: Patient denies any tobacco usage or history of. - Family history:: not pertinent. Screenin:35 [facility] ED Fall Risk Assessment (Adult) History of falling in the last 3 months, bp including since admission No falls in past 3 months (0 pts). Abuse screen: Denies threats or abuse. Denies injuries from another. Nutritional screening: No deficits noted. Tuberculosis screening: No symptoms or risk factors identified. Assessment: 15:35 General: SEE TRIAGE NOTE. bp 16:22 Reassessment: No changes from previously documented assessment. Patient and/or family ll1 updated on plan of care and expected duration. Pain level reassessed. 17:38 Reassessment: No changes from previously documented assessment. Patient is alert, bp oriented x 3, equal unlabored respirations, skin warm/dry/pink. 19:58 General: attempted to call report. nurse not available. will attempt again . lg3 Vital Signs: 15:32 BP 124 / 47; Pulse 81; Resp 16; Temp 98; Pulse Ox 98% ; bp 17:38 BP 138 / 57; Pulse 70; Resp 18; Pulse Ox 97% ; bp ED Course: 15:31 Patient arrived in ED. bp 15:33 Triage completed. bp 15:33 Arm band placed on. bp 15:34 Andrea Birmingham MD is Attending Physician. lottie 15:35 Patient has correct armband on for positive identification. Bed in low position. Call bp light in reach. Side rails up X2. Adult w/ patient. 15:35 Maintain EMS IV. Dressing intact. Good blood return noted. Site clean \T\ dry. Gauge \T\ bp site: 20 GA R AC. 15:41 Ketan White, RN is Primary Nurse. bp 16:08 XRAY Chest (1 view) In Process Unspecified. EDMS 16:55 CT Traumagram (Head C Spine CAP wo con) In Process Unspecified. EDMS 18:17 Tib Fib Right XRAY In Process Unspecified. EDMS 18:20 Uri Carson MD is Hospitalizing Provider. [facility] 18:27 Valdemar Sosa MD is Hospitalizing Provider. la1 20:15 No provider procedures requiring assistance completed. Patient admitted, IV remains in lg3 place. intact. Administered Medications: 16:06 Drug: NS 0.9% IV 500 ml Route: IV; Rate: bolus; Site: right antecubital; bp 16:06 Drug: NS 0.9% IV 1000 ml Route: IV; Rate: 125 ml/hr; Site: right antecubital; bp 16:06 Drug: fentaNYL (PF) IVP 25 mcg Route: IVP; Site: right antecubital; bp 17:51 Follow up: Response: No adverse reaction bp 16:06 Drug: fentaNYL (PF) IVP 25 mcg Route: IVP; Site: right antecubital; bp 17:52 Follow up: Response: No adverse reaction bp 16:06 Drug: Ondansetron IVP 4 mg Route: IVP; Site: right antecubital; bp 17:51 Follow up: Response: No adverse reaction bp 18:26 Drug: metroNIDAZOLE IVPB 500 mg Volume: 100 ml; Route: IVPB; Rate: 200 ml/hr; Infused bp Over: 30 mins; Site: right antecubital; 18:27 Drug: Tetanus Toxoid,Adsorbed IM 0.5 ml {Stars Coordinator: [employer]. Exp: 09/17/2023. bp Lot #: [id number]. } Route: IM; Site: left deltoid; 18:27 Drug: Rocephin IV 1 grams Route: IV; Rate: per protocol; Site: right antecubital; bp Medication: 15:35 VIS not applicable for this client. bp Outcome: 18:24 Decision to Hospitalize by Provider. lottie 20:15 Admitted to Med/surg accompanied by tech, via stretcher, room 229, Report called to lg3 [place]ana 20:15 Condition: stable 20:15 Instructed on the need for admit, Demonstrated understanding of instructions. 20:29 Patient left the ED. lg3 Signatures: Dispatcher [employer] Andrea Haque MD MD cha Attema, Lee, OXYGEN THERAPIST-C OXYGEN THERAPIST-Cla1 Ketan White, RN RN bp Yelena Francois, RN RN lg3 Lizzeth Arora, RN RN ll1
--- NOTE | 2022-09-26 18:24 | EDPHYS ---
Physician Documentation [facility] Name: Dinora Lea Age: 82 yrs Sex: Female : 1940 Arrival Date: 09/26/2022 Time: 15:30 Bed 2 Private MD: ED Physician Andrea Birmingham HPI: 09/26 18:07 This 82 yrs old Female presents to ER via EMS with complaints of General lottie Weakness. 18:07 The patient presents with decreased range of motion, pain, that is acute. The lottie complaints affect the lateral aspect of right calf. Context: The problem was sustained at home. Onset: The symptoms/episode began/occurred just prior to arrival. 18:08 Modifying factors: The symptoms are alleviated by remaining still. The patient presents lottie with abdominal pain in the right upper quadrant, right lower quadrant. WEAK AND DIZZY , FALL IN BR , SKIN TEAR TO RIGHT LOWER LEG. The patient has experienced near-syncope, almost passed out, felt dizzy, felt generally weak. Historical: - Allergies: 15:33 Pradaxa; bp 15:33 Xarelto; bp - Home Meds: 15:36 amlodipine 2.5 mg tab 1 tab once daily [Active]; furosemide 20 mg Oral tablet daily bp [Active]; clonazepam 1 mg Oral tab 1 tab once daily [Active]; amiodarone 200 mg Oral tablet 1 tab daily [Active]; Savaysa 60 mg Oral tab 1 tab once daily [Active]; pravastatin 40 mg Oral tab 1 tab once daily [Active]; levothyroxine 100 mcg tab 1 tab once daily [Active]; losartan 100 mg oral tablet daily [Active]; lisinopril 2.5 mg Oral tablet daily [Active]; - PMHx: 15:33 ADD/ADHD; Hyperlipidemia; Atrial Fib; Asthma; Hypertension; Hypothyroidism; bp - Immunization history:: Adult Immunizations up to date. - Social history:: Smoking status: Patient denies any tobacco usage or history of. - Family history:: not pertinent. ROS: 18:09 Constitutional: Negative for fever, chills, and weight loss, Eyes: Negative for injury, lottie pain, redness, and discharge, ENT: Negative for injury, pain, and discharge, Neck: Negative for injury, pain, and swelling, Cardiovascular: Negative for chest pain, palpitations, and edema, Respiratory: Negative for shortness of breath, cough, wheezing, and pleuritic chest pain, Back: Negative for injury and pain, : Negative for injury, bleeding, discharge, and swelling, Psych: Negative for depression, anxiety, suicide ideation, homicidal ideation, and hallucinations, Allergy/Immunology: Negative for hives, rash, and allergies, Endocrine: Negative for neck swelling, polydipsia, polyuria, polyphagia, and marked weight changes. 18:09 Abdomen/GI: Positive for abdominal pain, diarrhea, anorexia. Exam: 18:09 Abdomen/GI: Inspection: abdomen appears normal, Bowel sounds: normal, Palpation: mild lottie abdominal tenderness, in the right upper quadrant and right lower quadrant, Liver: no appreciated palpable abnormalities, Hernia: not appreciated. 18:09 Constitutional: This is a well developed, well nourished patient who is awake, alert, and in no acute distress. Head/Face: Normocephalic, atraumatic. Eyes: Pupils equal round and reactive to light, extra-ocular motions intact. Lids and lashes normal. Conjunctiva and sclera are non-icteric and not injected. Cornea within normal limits. Periorbital areas with no swelling, redness, or edema. ENT: Nares patent. No nasal discharge, no septal abnormalities noted. Tympanic membranes are normal and external auditory canals are clear. Oropharynx with no redness, swelling, or masses, exudates, or evidence of obstruction, uvula midline. Mucous membranes moist. Neck: Trachea midline, no thyromegaly or masses palpated, and no cervical lymphadenopathy. Supple, full range of motion without nuchal rigidity, or vertebral point tenderness. No Meningismus. Chest/axilla: Normal chest wall appearance and motion. Nontender with no deformity. No lesions are appreciated. Cardiovascular: Regular rate and rhythm with a normal S1 and S2. No gallops, murmurs, or rubs. Normal PMI, no JVD. No pulse deficits. Respiratory: Lungs have equal breath sounds bilaterally, clear to auscultation and percussion. No rales, rhonchi or wheezes noted. No increased work of breathing, no retractions or nasal flaring. Back: No spinal tenderness. No costovertebral tenderness. Full range of motion. Female : Normal external genitalia. Skin: Warm, dry with normal turgor. Normal color with no rashes, no lesions, and no evidence of cellulitis. Psych: Awake, alert, with orientation to person, place and time. Behavior, mood, and affect are within normal limits. 18:09 ECG was reviewed by the Attending Physician. 18:09 Abdomen/GI: Inspection: abdomen appears normal, Bowel sounds: hyperactive, in all quadrants, Palpation: mild abdominal tenderness, in the right upper quadrant and right lower quadrant, Liver: no appreciated palpable abnormalities, Hernia: not appreciated. Vital Signs: 15:32 BP 124 / 47; Pulse 81; Resp 16; Temp 98; Pulse Ox 98% ; bp 17:38 BP 138 / 57; Pulse 70; Resp 18; Pulse Ox 97% ; bp Laceration: 18:16 Wound Repair of 12cm ( 4.7in ) subcutaneous laceration to lateral aspect of right calf lottie and right ankle. Linear shaped.. SKIN TEAR. Distal neuro/vascular/tendon intact. Anesthesia: NONE with 0 mls of NONE. Wound prep: Moderate cleansing by me, Copious irrigation. Skin closed with 10 STERI STRIPS STERI STRIPS using STERI STRIP. Dressed with Kerlix, non-adherent dressing. Patient tolerated well. MDM: 15:34 Patient medically screened. lottie 18:12 Differential diagnosis: closed fracture, abrasion, Cholelithiasis, diverticulitis, lottie gastritis, non-specific abd pain, pancreatitis, Pyelonephritis, Ureterolithiasis, urinary tract infection. Differential Diagnosis altered mental status. Differential Diagnosis: cardiac arrhythmia, cerebrovascular accident, vasovagal episode. Data reviewed: vital signs, nurses notes, lab test result(s), EKG, radiologic studies, CT scan, plain films. Consideration of Admission/Observation Patient was admitted/placed on observation. Escalation of care including admission/observation considered. I considered the following discharge prescriptions or medication management in the emergency department Medications were administered in the Emergency Department. See MAR. Independent interpretation of the following test(s) in the Emergency Department EKG: See my EKG interpretation above. Historians other than the Patient: Daughter/Son: DAUGHTER. Care significantly affected by the following chronic conditions: Hypertension, ADD/ADHD/A FIB, ASTHMA. Counseling: I had a detailed discussion with the patient and/or guardian regarding: the historical points, exam findings, and any diagnostic results supporting the discharge/admit diagnosis, lab results, radiology results, the need for further work-up and treatment in the hospital. 09/26 15:35 Order name: Basic Metabolic Panel; Complete Time: 17:41 [facility] 09/26 15:35 Order name: CBC with Diff; Complete Time: 17:41 [facility] 09/26 15:35 Order name: LFT's; Complete Time: 17:41 [facility] 09/26 15:35 Order name: Magnesium; Complete Time: 17:41 [facility] 09/26 15:35 Order name: NT PRO-BNP; Complete Time: 17:41 [facility] 09/26 15:35 Order name: PT-INR; Complete Time: 17:41 [facility] 09/26 15:35 Order name: Troponin HS; Complete Time: 17:41 [facility] 09/26 15:35 Order name: Urinalysis w/ reflexes; Complete Time: 17:46 [facility] 09/26 15:35 Order name: Lipase; Complete Time: 17:41 [facility] 09/26 17:47 Order name: Urine Culture [facility] 09/26 19:18 Order name: Fecal Leukocyte Stain [facility] 09/26 19:18 Order name: Ova And Parasites [facility] 09/26 19:18 Order name: Rotavirus Antigen [facility] 09/26 19:18 Order name: Stool Culture [facility] 09/26 19:18 Order name: C.difficile [facility] 09/26 15:35 Order name: XRAY Chest (1 view); Complete Time: 17:41 [facility] 09/26 15:54 Order name: CT Traumagram (Head C Spine CAP wo con); Complete Time: 17:41 [facility] 09/26 17:51 Order name: Tib Fib Right XRAY; Complete Time: 19:17 bp 09/26 15:35 Order name: EKG; Complete Time: 15:36 [facility] 09/26 15:35 Order name: Cardiac monitoring; Complete Time: 15:39 [facility] 09/26 15:35 Order name: EKG - Nurse/Tech; Complete Time: 16:22 [facility] 09/26 15:35 Order name: IV Saline Lock; Complete Time: 15:39 [facility] 09/26 15:35 Order name: Labs collected and sent; Complete Time: 16:22 [facility] 09/26 15:35 Order name: O2 Per Protocol; Complete Time: 15:39 [facility] 09/26 15:35 Order name: O2 Sat Monitoring; Complete Time: 15:39 [facility] 09/26 18:04 Order name: Wound Care; Complete Time: 18:27 lottie EC:09 Rate is 72 beats/min. Rhythm is regular. QRS [place] is Normal. [place] interval is prolonged lottie at 284 msec. QRS interval is normal. QT interval is normal. No Q waves. T waves are Normal. No ST changes noted. Clinical impression: NSR w/ Non-specific ST/T Changes, 1st degree heart block, and No evidence of ischemia. Interpreted by me. Reviewed by me. Administered Medications: 16:06 Drug: NS 0.9% IV 500 ml Route: IV; Rate: bolus; Site: right antecubital; bp 16:06 Drug: NS 0.9% IV 1000 ml Route: IV; Rate: 125 ml/hr; Site: right antecubital; bp 16:06 Drug: fentaNYL (PF) IVP 25 mcg Route: IVP; Site: right antecubital; bp 17:51 Follow up: Response: No adverse reaction bp 16:06 Drug: fentaNYL (PF) IVP 25 mcg Route: IVP; Site: right antecubital; bp 17:52 Follow up: Response: No adverse reaction bp 16:06 Drug: Ondansetron IVP 4 mg Route: IVP; Site: right antecubital; bp 17:51 Follow up: Response: No adverse reaction bp 18:26 Drug: metroNIDAZOLE IVPB 500 mg Volume: 100 ml; Route: IVPB; Rate: 200 ml/hr; Infused bp Over: 30 mins; Site: right antecubital; 18:27 Drug: Tetanus Toxoid,Adsorbed IM 0.5 ml {Water Mechanic: [employer]. Exp: 09/17/2023. bp Lot #: [id number]. } Route: IM; Site: left deltoid; 18:27 Drug: Rocephin IV 1 grams Route: IV; Rate: per protocol; Site: right antecubital; bp Disposition Summary: 09/26/22 18:24 Hospitalization Ordered Hospitalization Status: Inpatient Admission lottie [facility] ([facility]) lottie Condition: Fair lottie Problem: new lottie Symptoms: have improved lottie Bed/Room Type: Standard lottie Provider: Valdemar Sosa(09/26/22 18:27) la1 Room Assignment: 229(09/26/22 19:23) mw Diagnosis - Syncope Near lottie - Weakness lottie - Laceration without foreign body, right lower leg - SKIN TEAR, 12 CM lottie - Indeterminate colitis - RIGHT, MILD lottie - Abdominal pain, unspecified lottie - Elevated white blood cell count lottie - Hypokalemia lottie Forms: - Medication Reconciliation Form lottie - SBAR form lottie Signatures: Dispatcher [employer] EDNoelle Matos RN RN Andrea Stoll MD MD cha Attema, Neo, FUEL EFFICIENT AUTOMOBILE DESIGNER-C FUEL EFFICIENT AUTOMOBILE DESIGNER-Cla1 Ketan White RN RN bp Corrections: (The following items were deleted from the chart) 18:27 18:24 Uri Carson cha la1 19:23 18:24 lottie lau
[2022-09-26] MEDS ORDERED: TETANUS & DIPHTHERIA TOX,ADULT 0.5 ML VIAL ONE (18:28)
[2022-09-26] MEDS ORDERED: METRONIDAZOLE 500mg IVPB 500 MG/100 ML BAG IV ONE (18:28)
[2022-09-26] MEDS ORDERED: CEFTRIAXONE 1000 MG/VIAL ONE (18:28)
--- NOTE | 2022-09-26 18:37 | RAD REPORT ---
EXAM DESCRIPTION: RAD - Tib Fib Right - 09/26/2022 6:15 pm CLINICAL HISTORY: Right leg pain FINDINGS: No fracture is seen. Osteoporosis
--- NOTE | 2022-09-26 20:12 | P.HP ---
Certification for Inpatient Patient admitted to: Inpatient With expected LOS: >2 Midnights Patient will require the following post-hospital care: None Practitioner: I am a practitioner with admitting privileges, knowledge of patient current condition, hospital course, and medical plan of care. Services: Services provided to patient in accordance with Admission requirements found in Title 42 Section 412.3 of the Code of Federal Regulations Patient History Date of Service: 09/26/22 Reason for admission: Enteritis History of Present Illness: 82-year-old female with history of atrial fibrillation, hypertension, hypothyroidism, hyperlipidemia presents to the emergency department with chief complaint of fall/syncope/diarrhea. She was admitted to the [facility] on the of this month for hyponatremia and subsequently transferred to [facility] rehab where she was discharged from on the . She was subsequently seen by her primary care provider on the and prescribed Macrobid for urinary tract infection as she has been feeling weak. Today she had an episode of diarrhea and while standing in the bathroom became l ightheaded and had a syncopal episode collapsing onto her granddaughter. She did not have any injuries at the time. Her labs were significant for leukocytosis white blood cell count 19.3 hemoglobin 11.6 medic at 35.6 sodium 132 potassium 3.3 creatinine 1.33 AST 54 ALT 68 alk phos [address] of the head/C-spine/chest abdomen pelvis was performed which revealed thickening of the ascending colon which may indicate a mild colitis. Patient does report diarrhea which has been ongoing over the course of last couple months on and off, worse the last few days. She reports 2-3 loose stools per day, she has been on antibitics recently. She was started on rocephin/flagyl in the ED. Allergies Unable to Assess Allergy (Unverified 09/26/22 19:41) - Past Medical/Surgical History -: Atrial fibrillation -: Hypertension -: hyperlipidemia -: hypothyroidism -: Back surgery -: Breast reduction Psychosocial/ Personal History: Patient is retired, lives at home with her daughter - Family History Family History: Reviewed- Non-Contributory - Social History Smoking Status: Never smoker Alcohol use: No CD- Drugs: No Caffeine use: No Place of Residence: Home Review of Systems 10-point ROS is otherwise unremarkable General: Weakness, Malaise Cardiovascular: Light Headedness, Other (Syncope) Gastrointestinal: Abdominal Pain, Diarrhea Physical Examination - Physical Exam General: Alert, In no apparent distress, Oriented x3 HEENT: Atraumatic, PERRLA, Mucous membr. moist/pink, EOMI, Sclerae nonicteric Neck: Supple, 2+ carotid pulse no bruit, No LAD, Without JVD or thyroid abnormality Respiratory: Clear to auscultation bilaterally, Normal air movement Cardiovascular: Regular rate/rhythm, Normal S1 S2 Capillary refill: <2 Seconds Gastrointestinal: Normal bowel sounds, Tenderness (Right lower quadrant and left lower quadrant tendernessmild) Musculoskeletal: No tenderness Integumentary: No rashes Neurological: Normal speech, Normal strength at 5/5 x4 extr, Normal tone, Normal affect - Studies Laboratory Data (last 24 hrs) 09/26/22 15:45: PT 17.0 H, INR 1.55 09/26/22 15:45: WBC 19.30 H, Hgb 11.6 L, Hct 35.6 L, Plt Count 395 09/26/22 15:45: Sodium 132 L, Potassium 3.3 L, BUN 10, Creatinine 1.33 H, Glucose 119 H, Magnesium 1.6, Total Bilirubin 0.8, AST 54 H, ALT 68 H, Alkaline Phosphatase 127 H, Lipase 34 Assessment and Plan - Plan Assessment: Leukocytosis, diarrhea, enteritis Atrial fibrillation on chronic anticoagulation Hypertension Hyperlipidemia Hypothyroidism Mildly elevated AST/ALT Plan: Leukocytosis, diarrhea, enteritis Only 1 out of 4 SIRS criteria present with leukocytosis. Will obtain blood cultures, stool studies including C. difficile. She has recently been covered with Rocephin/Flagyl. Atrial fibrillation on chronic anticoagulation Continue home medications once verified, family believes she is on amiodarone and edoxaban. Monitor on telemetry and trend troponins given syncopal episode. Hypertension Continue home medications Hyperlipidemia Hold statin given elevations in AST/ALT Hypothyroidism Continue levothyroxine Mildly elevated AST/ALT We will obtain ultrasound of the liver/gallbladder. Patient denies any upper abdominal pain, has no tenderness on exam. DVT PPX: Continue edoxaban Code status: Full code Discharge Plan: Home Plan to discharge in: 48 Hours - Advance Directives Does patient have a Living Will: No Does patient have a Durable POA for Healthcare: No - Code Status/Comfort Care Code Status Assessed: Yes (Full code) Critical Care: No Time Spent Managing Pts Care (In Minutes): 70
[2022-09-26] MEDS ORDERED: ONDANSETRON 4 MG/2 ML VIAL IV PRN (20:43)
[2022-09-26 21:11] VITALS: BMI 27.5
[2022-09-26] MEDS: NA CHLORIDE 0.9% 1,000 ML IV SCH (21:19)
[2022-09-26] MEDS: clonazePAM 1 MG TAB PO PRN (23:00)
[2022-09-26] MEDS: METRONIDAZOLE 500mg IVPB 500 MG/100 ML BAG IV SCH (23:59)
[2022-09-27 03:48] LABS: Absolute Lymphocytes (CBC) 1.2 K/uL (0.7-4.9); Hematocrit 29.9 % (36.0-45.0); Lymphocytes % 11.1 % (15.3-44.8); MCV 96.3 fL (80-100); MPV 6.9 fL (7.6-11.3)
[2022-09-27 04:12] LABS: Albumin 2.5 g/dL (3.4-5.0); Bilirubin Total 0.5 mg/dL (0.2-1.0); Potassium 3.3 mEq/L (3.5-5.1); Protein, Total 5.3 g/dL (6.4-8.2); Thyroid Stimulating Hormone 3.5 uIU/mL (0.358-3.740); Troponin High Sensitivity 10.5 pg/mL (<58.9)
[2022-09-27] MEDS ORDERED: LEVOTHYROXINE SOD 0.1 MG TAB PO SCH (07:30)
--- NOTE | 2022-09-27 07:36 | RAD REPORT ---
EXAM DESCRIPTION: US - Abdomen Exam Limited - 09/27/2022 1:11 am CLINICAL HISTORY: Elevated LFTs COMPARISON: Abdomen Exam Complete dated 03/22/2022 FINDINGS: The gallbladder demonstrates no gallstones. No pericholecystic fluid or gallbladder wall t hickening. The common bile duct is normal measuring 3 mm. The liver demonstrates no findings of intrahepatic biliary dilatation. IMPRESSION: Unremarkable examination.
[2022-09-27] MEDS ORDERED: CEFTRIAXONE 1,000 MG in NA CHLORIDE 0.9% 50 ML IVPB SCH (09:00)
[2022-09-27] MEDS ORDERED: POTASSIUM 25 MEQ EFFERV TAB PO ONE (09:00)
[2022-09-27] MEDS: EDOXABAN TOSYLATE 60 MG PO SCH (09:00)
[2022-09-27] MEDS ORDERED: ENOXAPARIN 30 MG/0.3 ML SQ SCH (09:00)
[2022-09-27] MEDS: LOSARTAN POTASSIUM 50 MG TABLET PO SCH (09:03)
[2022-09-27] MEDS: METRONIDAZOLE 500mg IVPB 500 MG/100 ML BAG IV SCH ×2 (09:03→16:51)
[2022-09-27] MEDS: AMIODARONE HCL 200 MG TAB PO SCH (09:04)
[2022-09-27] MEDS: NA CHLORIDE 0.9% 1,000 ML IV SCH (09:04)
[2022-09-27] MEDS: AMLODIPINE 2.5 MG TAB PO SCH (09:04)
--- NOTE | 2022-09-27 13:13 | P.PN ---
Subjective Date of Service: 09/27/22 Chief Complaint: Enteritis No acute events since admission. She reports that her abdominal pain is mildly improved. She reports that she continues to have diarrhea, but this has also improved. She denies any fevers, chills, chest pain, or shortness of breath. Review of Systems 10-point ROS is otherwise unremarkable General: Weakness (generalized) Gastrointestinal: Abdominal Pain, Diarrhea Physical Examination - Vital Signs Temperature: 97.7 F Blood Pressure: 123/58 Pulse: 66 Respirations: 18 Pulse Ox (%): 97 - Physical Exam General: Alert, In no apparent distress, Oriented x3 HEENT: Atraumatic, Sclerae nonicteric Neck: JVD not distended Respiratory: Clear to auscultation bilaterally, Normal air movement Cardiovascular: No edema, Regular rate/rhythm, Normal S1 S2, No gallops, No rubs, No murmurs Gastrointestinal: Non-distended, No rebound, No guarding, Hyperactive, T enderness (minimal, right-sided) Musculoskeletal: No clubbing Integumentary: No rashes Neurological: Normal speech, Normal affect - Studies Laboratory Data (last 24 hrs) 09/26/22 15:45: PT 17.0 H, INR 1.55 09/26/22 15:45: WBC 19.30 H, Hgb 11.6 L, Hct 35.6 L, Plt Count 395 09/26/22 15:45: Sodium 132 L, Potassium 3.3 L, BUN 10, Creatinine 1.33 H, Glucose 119 H, Magnesium 1.6, Total Bilirubin 0.8, AST 54 H, ALT 68 H, Alkaline Phosphatase 127 H, Lipase 34 Assessment And Plan - Plan # Mild Ascending Colitis - possible Clostridium Difficile Colitis - POA - Does not meet sepsis criteria - Infectious Diseases consulted - recommendations appreciated - C. Difficile - stool antigen positive, toxin negative - unclear if active infection - Switch IV ceftriaxone + metronidazole -> PO vancomycin - Gastroenterology consulted and spoke with Dr. Edge - recommendations appreciated - Started Lactated Ringers' @ 75 mL/hr - Clear liquid diet - advance as tolerated # Syncope - suspect Vasovagal # Generalized Weakness with Ground-Level Fall Differential diagnoses include, but are not limited to, vasovagal syncope, orthostatic hypotension, cardiac etiology (i.e. arrhythmia, valvulopathy), and neurogenic etiologies. - Radiology: - CT head/cervical spine/chest/abdomen/pelvis = "no acute intracranial abnormality is seen. A cervical fracture is not visualized. If the patient continues have symptoms to suggest intracranial/spinal cord pathology MRI be recommended. Wall of the ascending colon appears mildly thickened. This may indicate a mild colitis." - Right tib/fib x-ray = "no fracture is seen. Osteoporosis" - Management plan: - Request orthostatic vital signs - Transthoracic echocardiogram - PT consult # Elevated LFTs - improved - Gastroenterology consulted and spoke with Dr. 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
[2022-09-27] MEDS ORDERED: POTASSIUM CL SA 10 MEQ TAB PO ONE (17:00)
[2022-09-27 18:02] LABS: C.diff Antigen/Toxin Ag pos : Tox neg (NEG : NEG)
--- NOTE | 2022-09-27 19:10 | EKG ---
Test Date: 2022-09-26 Test Time: 16:18:15 Therapy Coordinator: LML MEASUREMENT RESULTS: Intervals: Rate: 72 GA: 284 QRSD: 84 QT: 488 QTc: 534 [place]: P: 51 GA: 284 QRS: 18 T: 260 INTERPRETIVE STATEMENTS: Sinus rhythm with 1st degree AV block Low voltage QRS Cannot rule out Anteroseptal infarct, age undetermined ST & T wave abnormality, consider inferior ischemia Prolonged QT Abnormal ECG No previous ECG available for comparison Electronically Signed On 09-27-22 19:08:45 CDT by Francesco Acevedo
[2022-09-27] MEDS ORDERED: VANCOMYCIN ORAL SOLN 250 MG/5 ML OSYR PO SCH (19:15)
[2022-09-27] MEDS ORDERED: VANCOMYCIN 500 MG/VIAL ONE (20:46)
[2022-09-27] MEDS ORDERED: WATER FOR INJ,STERILE 10 ML ONE (20:48)
[2022-09-27] MEDS: Ringers Lactate 1,000 ML IV SCH (20:54)
[2022-09-27] MEDS: ENSURE CLEAR 200 ML CAN PO SCH (20:59)
[2022-09-27] MEDS: VANCOMYCIN ORAL SOLN 250 MG/5 ML OSYR PO SCH (20:59)
[2022-09-27] MEDS ORDERED: Banana Flakes/T-Galactooligos 1 Dose Packet PO SCH (21:00)
[2022-09-27] MEDS: Banana Flakes/T-Galactooligos 1 Dose Packet PO SCH (21:00)
[2022-09-27] MEDS: clonazePAM 1 MG TAB PO PRN (21:36)
[2022-09-28] MEDS: VANCOMYCIN ORAL SOLN 250 MG/5 ML OSYR PO SCH ×4 (03:00→21:07)
[2022-09-28 07:08] LABS: Absolute Lymphocytes (CBC) 1.2 K/uL (0.7-4.9); Hematocrit 25.9 % (36.0-45.0); Lymphocytes % 17.5 % (15.3-44.8); MCV 96.4 fL (80-100); MPV 6.5 fL (7.6-11.3); RBC Red Blood Cell Count 2.69 M/uL (3.86-4.86)
[2022-09-28 07:33] LABS: Albumin 2.2 g/dL (3.4-5.0); Bilirubin Total 0.5 mg/dL (0.2-1.0); Potassium 3.7 mEq/L (3.5-5.1); Protein, Total 4.7 g/dL (6.4-8.2)
[2022-09-28] MEDS ORDERED: POTASSIUM 25 MEQ EFFERV TAB PO ONE (07:39)
[2022-09-28] MEDS: ENSURE CLEAR 200 ML CAN PO SCH ×2 (08:14→21:11)
[2022-09-28] MEDS: Banana Flakes/T-Galactooligos 1 Dose Packet PO SCH ×2 (08:15→21:00)
[2022-09-28] MEDS: EDOXABAN TOSYLATE 60 MG PO SCH (08:16)
[2022-09-28] MEDS: ENOXAPARIN 40 MG/0.4 ML SQ SCH (08:16)
[2022-09-28] MEDS: LOSARTAN POTASSIUM 50 MG TABLET PO SCH (08:24)
[2022-09-28] MEDS: AMIODARONE HCL 200 MG TAB PO SCH (08:24)
[2022-09-28] MEDS: AMLODIPINE 2.5 MG TAB PO SCH (08:24)
[2022-09-28] MEDS: Ringers Lactate 1,000 ML IV SCH ×2 (08:27→22:40)
--- NOTE | 2022-09-28 09:22 | P.CNS ---
Date of Consult: 09/28/22 Reason for Consult: C.diff Chief Complaint: Enteritis History of Present Illness: Patient is an 82-year-old female with history of atrial fibrillation, hypertension, hypothyroidism, hyperlipidemia who presented to the ED with complaints of lightheadedness/fall and diarrhea. Patient had a syncopal episode while in the bathroom and was subsequently brought to the ED. Patient reports she has been having diarrhea over the last month, which has been worsening over the last few days. Patient reportedly had been having 2-3 loose stools per day. Of note, patient was recently hospitalized for hyponatremia on 09/13. On 09/21 she was prescribed Macrobid for a UTI by her primary care provider. She was started on empiric antibiotics in the ED and admitted for further management. ID consulted for C.diff. Allergies dabigatran etexilate [From Pradaxa] Adverse Reaction (Verified 09/26/22 20:42) Itching rivaroxaban [From Xarelto] Adverse Reaction (Verified 09/26/22 20:42) Rash Home medications list reviewed: Yes Home Medications: Amiodarone HCl [Cordarone Tab] 200 mg PO DAILY 09/26/22 Amlodipine [Norvasc] 2.5 mg PO DAILY 09/26/22 Edoxaban Tosylate [Savaysa] 60 mg PO DAILY 09/26/22 Furosemide [Lasix] 20 mg PO DAILY 09/26/22 Levothyroxine Sodium 100 mcg PO DAILY 09/26/22 Lisinopril [Zestril] 2.5 mg PO DAILY 09/26/22 Losartan Potassium 50 mg PO DAILY 09/26/22 Pravastatin [Pravachol*] 40 mg PO DAILY 09/26/22 clonazePAM [Clonazepam] 1 mg PO BEDTIME 09/26/22 - Past Medical/Surgical History -: Atrial fibrillation -: Hypertension -: hyperlipidemia -: hypothyroidism -: Back surgery -: Breast reduction Psychosocial/ Personal History: Patient is retired, lives at home with her daughter - Social History Alcohol use: No CD- Drugs: No Caffeine use: No Place of Residence: Home Review of Systems 10-point ROS is otherwise unremarkable General: Weakness Gastrointestinal: Diarrhea Physical Examination Temp Pulse Resp BP Pulse Ox 98.1 F 72 16 121/58 L 97 09/28/22 08:00 09/28/22 08:24 09/28/22 08:00 09/28/22 08:24 09/28/22 08:00 General: Alert, In no apparent distress, Oriented x3 HEENT: Atraumatic, Normocephalic Neck: Supple, JVD not distended Respiratory: Clear to auscultation bilaterally, Normal air movement Cardiovascular: No edema, Normal pulses Gastrointestinal: Soft and benign, Hyperactive Musculoskeletal: No clubbing, No swelling Integumentary: No rashes, No breakdown Neurological: Normal speech, Normal tone, Normal affect Laboratory Data - Reviewed Microbiology Data - Reviewed Imagings Data: - Reviewed Conclusions/Impression: Problem List Atrial Fibrillation, Chronic Hypertension Hyperlipidemia Syncope Generalized weakness Anemia Severe PCM Colitis C. difficile - Recent hospitalization on 09/13 for hyponatremia. Recently prescribed Macrobid for UTI by her PCP on 09/21. Reports 2-3 loose stools per day - CT abdomen: "Wall of the ascending colon appears mildly thickened. This may indicate a mild colitis" - Abdominal Ultrasound 09/26: "Unremarkable examination" - C.difficile Antigen= positive, Toxin= negative - Stool cultures 09/26: pending - On Vancomycin 125 mg PO QID - Leukocytosis improving (WBC 11 -> 6.8 - on 09/28) Blood cultures 09/26: no growth to date Urine culture: <10,000 CFU/mL ; mixed ariane Recommendations - Continue Vancomycin PO x 10 days (started 09/27). Currently day 2 of 10. - Maintain adequate nutrition and hydration - Added Probiotic and Questran - Monitor WBC and fever trends - Follow up with stool culture reports ID will follow up and monitor patient closely. Case discussed with Mane Bowens. Thank you Dr. Sosa for consult.
[2022-09-28 10:38] LABS: C.difficile 027-NAP1-BI PRESUMPTIVE NEGATIVE (NEGATIVE)
[2022-09-28] MEDS: clonazePAM 1 MG TAB PO PRN (21:09)
--- NOTE | 2022-09-28 22:18 | P.PN ---
Subjective Date of Service: 09/28/22 Chief Complaint: Enteritis She reports having 4 watery bowel movements over the last 24 hours. Her abdominal pain is improving. She describes the pain as cramping. She was started on PO vancomycin yesterday evening due to her stool testing positive for C. Difficile. She denies any fevers, chills, chest pain, or shortness of breath. Review of Systems 10-point ROS is otherwise unremarkable Gastrointestinal: Abdominal Pain, Diarrhea Physical Examination - Vital Signs Temperature: 97.3 F Blood Pressure: 137/49 Pulse: 70 Respirations: 16 Pulse Ox (%): 96 - Studies Microbiology Data (last 24 hrs): 09/26/22 17:25 Clean Catch Urine [place] Count - Final <10,000 CFU/ML. 09/26/22 17:25 Clean Catch Urine - Final MIXED WANG. Assessment And Plan - Plan - Physical Exam General: Alert, In no apparent distress, Oriented x3 HEENT: Atraumatic, Sclerae nonicteric Neck: JVD not distended Respiratory: Clear to auscultation bilaterally, Normal air movement Cardiovascular: No edema, Regular rate/rhythm, No murmurs Gastrointestinal: Non-distended, No rebound, No guarding, Hyperactive, Tenderness (minimal, right-sided) Musculoskeletal: No clubbing Integumentary: No rashes, Skin tear to right leg is wrapped in clean dressing Neurological: Normal speech, Normal affect # Mild Ascending Colitis likely due to Clostridium Difficile Colitis - POA - Does not meet sepsis criteria - Infectious Diseases consulted and spoke with ACTIVITY SPECIALIST Sgarbi - recommendations appreciated - C. Difficile - stool antigen positive, toxin negative - PCR returned positive - Given clinical symptoms suspect she has active infection - Switch IV ceftriaxone + metronidazole -> PO vancomycin - Gastroenterology consulted and spoke with Dr. Edge - recommendations appreciated - Continue Lactated Ringers' @ 75 mL/hr - Clear liquid diet - advance as tolerated - Can consider discharge once having <3 bowel movements per day # Syncope - suspect Vasovagal # Generalized Weakness with Ground-Level Fall with skin tear to Right Leg Differential diagnoses include, but are not limited to, vasovagal syncope, orthostatic hypotension, cardiac etiology (i.e. arrhythmia, valvulopathy), and neurogenic etiologies. - Radiology: - CT head/cervical spine/chest/abdomen/pelvis = "no acute intracranial abnormality is seen. A cervical fracture is not visualized. If the patient continues have symptoms to suggest intracranial/spinal cord pathology MRI be recommended. Wall of the ascending colon appears mildly thickened. This may indicate a mild colitis." - Right tib/fib x-ray = "no fracture is seen. Osteoporosis" - Management plan: - Request orthostatic vital signs - Transthoracic echocardiogram - PT consult # Elevated LFTs - improved - Gastroenterology consulted and spoke with Dr. 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
[2022-09-29] MEDS: VANCOMYCIN ORAL SOLN 250 MG/5 ML OSYR PO SCH ×4 (02:29→20:48)
[2022-09-29] MEDS: Ringers Lactate 1,000 ML IV SCH ×2 (02:30→13:49)
[2022-09-29 06:09] LABS: Absolute Lymphocytes (CBC) 1.1 K/uL (0.7-4.9); Hematocrit 25.4 % (36.0-45.0); MCV 96.6 fL (80-100); MPV 6.5 fL (7.6-11.3); RBC Red Blood Cell Count 2.63 M/uL (3.86-4.86)
[2022-09-29 06:26] LABS: Albumin 2.2 g/dL (3.4-5.0); Bilirubin Total 0.3 mg/dL (0.2-1.0); Potassium 3.8 mEq/L (3.5-5.1); Protein, Total 4.6 g/dL (6.4-8.2)
[2022-09-29] MEDS: ENSURE CLEAR 200 ML CAN PO SCH ×2 (08:37→20:48)
[2022-09-29] MEDS: EDOXABAN TOSYLATE 60 MG PO SCH (08:38)
[2022-09-29] MEDS: LACTOBACILLUS/ACIDOPHILUS TAB PO SCH (08:38)
[2022-09-29] MEDS: ENOXAPARIN 40 MG/0.4 ML SQ SCH (08:38)
[2022-09-29] MEDS: POTASSIUM 25 MEQ EFFERV TAB PO SCH (08:38)
[2022-09-29] MEDS: AMLODIPINE 2.5 MG TAB PO SCH (08:39)
[2022-09-29] MEDS: LOSARTAN POTASSIUM 50 MG TABLET PO SCH (08:39)
[2022-09-29] MEDS: Banana Flakes/T-Galactooligos 1 Dose Packet PO SCH ×2 (08:39→20:49)
[2022-09-29] MEDS: AMIODARONE HCL 200 MG TAB PO SCH (08:39)
--- NOTE | 2022-09-29 09:10 | P.PN ---
Date of Service: 09/29/22 Chief Complaint: Diarrhea Subjective: Patient seen and examined at bedside. A&Ox3, NAD. Continues to report diarrhea. No acute events reported overnight. Physical Examination Temp Pulse Resp BP Pulse Ox 97.5 F 67 16 119/55 L 95 09/29/22 08:00 09/29/22 08:00 09/29/22 08:00 09/29/22 08:00 09/29/22 08:00 General: Alert, In no apparent distress, Oriented x3 HEENT: Atraumatic, Normocephalic Neck: Supple, JVD not distended Respiratory: Clear to auscultation bilaterally, On room air. Cardiovascular: trace BLE edema, Normal pulses Gastrointestinal: Soft and benign, Hyperactive, + diarrhea Integumentary: No rashes, No breakdown Neurological: Normal speech, Normal tone, Normal affect Laboratory Data - Reviewed Microbiology Data - Reviewed Imagings Data: - Reviewed Medication List: Reviewed Conclusions/Impression: Problem List Atrial Fibrillation, Chronic Hypertension Hyperlipidemia Syncope Generalized weakness Anemia Severe PCM Colitis C. difficile - Recent hospitalization on 09/13 for hyponatremia. Recently prescribed Macrobid for UTI by her PCP on 09/21. Reports 2-3 loose stools per day - CT abdomen: "Wall of the ascending colon appears mildly thickened. This may indicate a mild colitis" - Abdominal Ultrasound 09/26: "Unremarkable examination" - C.difficile Antigen= positive, Toxin= negative - Stool cultures 09/26: pending - On Vancomycin 125 mg PO QID - Probiotic and banana flakes - Leukocytosis resolved (WBC 5.6) Blood cultures 09/26: no growth to date Urine culture: <10,000 CFU/mL ; mixed ariane Recommendations - Continue Vancomycin PO x 10 days (started 09/27). Currently day 3 of 10. - Maintain adequate nutrition and hydration - Monitor WBC and fever trends - Follow up with stool culture reports - If no improvement in diarrhea, consider adding Questran. However be sure to take Vanco PO 1 hour before OR 4 hours after Questran dose. ID will follow up and monitor patient closely. Case discussed with Namrata Bowens
--- NOTE | 2022-09-29 11:23 | RAD REPORT ---
EXAM DESCRIPTION: CT - Knee Right Wo Cont - 09/29/2022 9:45 am CLINICAL HISTORY: bulge behind knee COMPARISON: Tib Fib Right dated 09/26/2022 TECHNIQUE: Thin cut axial CT imaging of the right knee performed without IV contrast. Multiplanar re formats were generated and reviewed. All CT scans are performed using dose optimization technique as appropriate and may include automated exposure control or mA/KV adjustment according to patient size. FINDINGS: No acute osseous abnormality or suspicious osseous lesion. Tricompartmental degenerative changes, up to severe, with marked joint space loss along the medial we ight-bearing compartment. Slight lateral subluxation of the tibia. Pronounced marginal spurring. Extensive medial arterial calcifications which can be seen in the setting of diabetes mellitus. Somewhat elongated soft tissue density along the hypo dermal region posterior knee slightly medially, measuring 1.8 x 1.7 centimeter in greatest axial dimensions, nonspecific, and could relate to a smal l focus of subcutaneous soft tissue inflammation or a small sebaceous cyst. No joint effusion. Other visualized soft tissues are unremarkable. IMPRESSION: Somewhat elongated 1.8 centimeter posterior knee hypo dermal soft tissue density which i s nonspecific, could relate to a small focus of subcutaneous soft tissue inflammation or a small seba ceous cyst. 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
[2022-09-29 16:25] VITALS: O2SAT 97
--- NOTE | 2022-09-29 18:16 | P.PN ---
Subjective Date of Service: 09/29/22 Chief Complaint: Enteritis She reports that her diarrhea is relatively unchanged compared to yesterday. She states that her abdominal pain is mostly resolved. She endorses concerns with discharge due to significant generalized weakness. Appreciate PT recommendations. She states that she has noticed a bulge behind her right knee, which she had not appreciated before. She denies any fevers, chills, chest pain, or shortness of breath. Review of Systems 10-point ROS is otherwise unremarkable General: Weakness (generalized) Gastrointestinal: Diarrhea Physical Examination - Vital Signs Temperature: 97.5 F Blood Pressure: 133/62 Pulse: 61 Respirations: 16 Pulse Ox (%): 97 Assessment And Plan - Plan - Physical Exam General: Alert, In no apparent distress, Oriented x3 HEENT: Atraumatic, Sclerae nonicteric Neck: JVD not distended Respiratory: Clear to auscultation bilaterally, Normal air movement Cardiovascular: No edema, Regular rate/rhythm, No murmurs Gastrointestinal: Non-distended, No rebound, No guarding, Hyperactive, No tenderness Musculoskeletal: No clubbing, bulge appreciate on posterior medial right knee. Integumentary: No rashes, Skin tear to right leg is wrapped in clean dressing Neurological: Normal speech, Normal affect # Mild Ascending Colitis likely due to Clostridium Difficile Colitis - POA - Does not meet sepsis criteria - Infectious Diseases consulted and spoke with HORSERADISH GRINDER Sgarbi - recommendations appreciated - C. Difficile - stool antigen positive, toxin negative - PCR returned positive - Given clinical symptoms suspect she has active infection - Switch IV ceftriaxone + metronidazole -> PO vancomycin - Gastroenterology consulted and spoke with Dr. Edge - recommendations appreciated - Continue Lactated Ringers' @ 75 mL/hr - Continue regular diet - Can consider discharge once having <3 bowel movements per day # Syncope - suspect Vasovagal # Generalized Weakness with Ground-Level Fall with skin tear to Right Leg Differential diagnoses include, but are not limited to, vasovagal syncope, orthostatic hypotension, cardiac etiology (i.e. arrhythmia, valvulopathy), and neurogenic etiologies. - Radiology: - CT head/cervical spine/chest/abdomen/pelvis = "no acute intracranial abnormality is seen. A cervical fracture is not visualized. If the patient continues have symptoms to suggest intracranial/spinal cord pathology MRI be recommended. Wall of the ascending colon appears mildly thickened. This may in dicate a mild colitis." - Right tib/fib x-ray = "no fracture is seen. Osteoporosis" - Management plan: - Request orthostatic vital signs - Transthoracic echocardiogram - PT consult # Posterior Right Knee Bulge Differential diagnoses include, but are not limited to, a Oquendo's cyst, lipoma, or sebaceous cyst. - Ordered CT right knee # Elevated LFTs - improved - Gastroenterology consulted and spoke with Dr. 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
[2022-09-29] MEDS: clonazePAM 1 MG TAB PO PRN (20:49)
--- NOTE | 2022-09-29 21:47 | RAD REPORT ---
EXAM DESCRIPTION: US - Extremity Nonvascular Complete - 09/29/2022 9:34 pm CLINICAL HISTORY: bulge behind rt knee Pain and swelling COMPARISON: No comparisons TECHNIQUE: Real-time sonographic evaluation of the area of interest was performed right popliteal fo ssa region. FINDINGS: Echogenic structure is present in the popliteal fossa region measures 2.2 x 1.8 x 1.3 cm. There is a small amount of fluid likely present centrally as well within this structure. This is a no nspecific finding and of unclear etiology. Consider follow-up MR imaging of the right knee.
[2022-09-30] MEDS: VANCOMYCIN ORAL SOLN 250 MG/5 ML OSYR PO SCH ×4 (03:11→21:58)
[2022-09-30 07:14] LABS: Hematocrit 25.6 % (36.0-45.0)
[2022-09-30 07:33] LABS: Magnesium 1.2 mg/dL (1.6-2.4); Potassium 4.2 mEq/L (3.5-5.1)
[2022-09-30] MEDS: EDOXABAN TOSYLATE 60 MG PO SCH (09:00)
[2022-09-30] MEDS: Banana Flakes/T-Galactooligos 1 Dose Packet PO SCH ×2 (09:00→21:00)
[2022-09-30] MEDS: ENSURE CLEAR 200 ML CAN PO SCH ×2 (09:00→21:59)
[2022-09-30] MEDS: Ringers Lactate 1,000 ML IV SCH ×2 (09:35→14:36)
[2022-09-30] MEDS: LOSARTAN POTASSIUM 50 MG TABLET PO SCH (09:39)
[2022-09-30] MEDS: AMLODIPINE 2.5 MG TAB PO SCH (09:40)
[2022-09-30] MEDS: AMIODARONE HCL 200 MG TAB PO SCH (09:40)
[2022-09-30] MEDS: LACTOBACILLUS/ACIDOPHILUS TAB PO SCH (09:40)
[2022-09-30] MEDS: ENOXAPARIN 40 MG/0.4 ML SQ SCH (09:40)
[2022-09-30] MEDS: POTASSIUM 25 MEQ EFFERV TAB PO SCH (09:40)
--- NOTE | 2022-09-30 19:23 | P.PN ---
Subjective Date of Service: 09/30/22 Chief Complaint: Enteritis She reports that her diarrhea is relatively unchanged in frequency, but she believes that her stool is becoming more formed. Per PT eval on 09/28, she was walked 10 feet x 2. However, it is unclear if this is due to her generalized weakness or due to her isolation precautions. She and her daughter endorse concern for her generalized weakness. Plan for her to work with PT today. She is not interested in SNF or inpatient rehab. Her knee ultrasound was unclear, but per Radiology, she may benefit from an MRI of her knee. MRI is unavailable over the weekened. She denies any fevers, chills, chest pain, or shortness of breath. Review of Systems 10-point ROS is otherwise unremarkable General: Weakness (generalized) Physical Examination - Vital Signs Temperature: 97.4 F Blood Pressure: 148/64 Pulse: 77 Respirations: 16 Pulse Ox (%): 97 Assessment And Plan - Plan - Physical Exam General: Alert, In no apparent distress, Oriented x3 HEENT: Atraumatic, Sclerae nonicteric Respiratory: Clear to auscultation bilaterally, Normal air movement Cardiovascular: No edema, Regular rate/rhythm, No murmurs Gastrointestinal: Non-distended, Hyperactive, No tenderness Musculoskeletal: No clubbing, bulge appreciated on posterior medial right knee. Integumentary: No rashes, Skin tear to right leg is wrapped in clean dressing Neurological: Normal speech, Normal affect # Mild Ascending Colitis likely due to Clostridium Difficile Colitis - POA - Does not meet sepsis criteria - Infectious Diseases consulted and spoke with CLAIMS SORTER Sgarbi - recommendations appreciated - C. Difficile - stool antigen positive, toxin negative - PCR returned positive - Given clinical symptoms suspect she has active infection - Continue PO vancomycin - Gastroenterology consulted - recommendations appreciated - Continue regular diet - Can consider discharge once having <3 bowel movements per day - Started cholestyramine # Syncope - suspect Vasovagal # Generalized Weakness with Ground-Level Fall with skin tear to Right Leg Differential diagnoses include, but are not limited to, vasovagal syncope, orthostatic hypotension, cardiac etiology (i.e. arrhythmia, valvulopathy), and neurogenic etiologies. - Radiology: - CT head/cervical spine/chest/abdomen/pelvis = "no acute intracranial abnormality is seen. A cervical fracture is not visualized. If the patient continues have symptoms to suggest intracranial/spinal cord pathology MRI be recommended. Wall of the ascending colon appears mildly thickened. This may indicate a mild colitis." - Right tib/fib x-ray = "no fracture is seen. Osteoporosis" - Management plan: - Request orthostatic vital signs - Transthoracic echocardiogram - PT consulted # Posterior Right Knee Lesion Differential diagnoses include, but are not limited to, a Oquendo's cyst, lipoma, or sebaceous cyst. - CT right knee = "somewhat elongated 1.8 centimeter posterior knee hypo dermal soft tissue density which is nonspecific, could relate to a small focus of subcutaneous soft tissue inflammation or a small sebaceous cyst. 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 There is a small amount of fluid likely present centrally as well within this structure. This is a nonspecific finding and of unclear etiology. Consider follow-up MR imaging of the right knee." - MRI unavailable on weekend - ordered for 10/02/2022 # Elevated LFTs - improved - Gastroenterology consulted and spoke with Dr. 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
[2022-09-30] MEDS ORDERED: MAGNESIUM 50% 3 GM in NA CHLORIDE 0.9% 100 ML IV ONE (19:28)
[2022-09-30] MEDS: CHOLESTYRAMINE/ASP 4 GM/PKT PO SCH (19:44)
[2022-09-30] MEDS: MAGNESIUM SULFATE 1 gm IVPB 1 GM/100 ML BAG IV SCH ×3 (19:54→22:48)
[2022-09-30] MEDS: clonazePAM 1 MG TAB PO PRN (22:00)
[2022-10-01] MEDS: VANCOMYCIN ORAL SOLN 250 MG/5 ML OSYR PO SCH ×4 (03:25→20:48)
[2022-10-01 06:00] LABS: Phosphorus 3.5 mg/dL (2.5-4.9); Potassium 3.8 mEq/L (3.5-5.1)
[2022-10-01] MEDS ORDERED: POTASSIUM CL SA 10 MEQ TAB PO ONE (09:00)
[2022-10-01] MEDS: LACTOBACILLUS/ACIDOPHILUS TAB PO SCH (09:00)
[2022-10-01] MEDS: Banana Flakes/T-Galactooligos 1 Dose Packet PO SCH ×2 (09:00→20:48)
[2022-10-01] MEDS: EDOXABAN TOSYLATE 60 MG PO SCH (09:00)
[2022-10-01] MEDS: AMLODIPINE 2.5 MG TAB PO SCH (09:02)
[2022-10-01] MEDS: ENOXAPARIN 40 MG/0.4 ML SQ SCH (09:02)
[2022-10-01] MEDS: AMIODARONE HCL 200 MG TAB PO SCH (09:03)
[2022-10-01] MEDS: LOSARTAN POTASSIUM 50 MG TABLET PO SCH (09:03)
[2022-10-01] MEDS: CHOLESTYRAMINE/ASP 4 GM/PKT PO SCH (09:03)
[2022-10-01] MEDS: POTASSIUM 25 MEQ EFFERV TAB PO SCH (09:04)
[2022-10-01] MEDS: ENSURE CLEAR 200 ML CAN PO SCH ×2 (09:04→20:48)
--- NOTE | 2022-10-01 17:15 | P.PN ---
Subjective Date of Service: 10/01/22 Chief Complaint: Enteritis She feels that her diarrhea is improving daily. She states that she was able to look into her outpatient colonoscopy records (performed several months ago), and states that she was diagnosed with collagenous colitis. She was treated with a course of budesonide, but is currently not taking any medications for this. She has decided on home health, but discharge is currently pending an MRI of her right knee. She denies any fevers, chills, chest pain, or shortness of breath. Review of Systems 10-point ROS is otherwise unremarkable Gastrointestinal: Diarrhea Musculoskeletal: Leg Pain (right knee) Physical Examination - Vital Signs Temperature: 98.9 F Blood Pressure: 160/63 Pulse: 70 Respirations: 18 Pulse Ox (%): 95 Assessment And Plan - Plan - Physical Exam General: Alert, In no apparent distress, Oriented x3 HEENT: Atraumatic, Sclerae nonicteric Respiratory: Clear to auscultation bilaterally, Normal air movement Cardiovascular: No edema, Regular rate/rhythm, No murmurs Gastrointestinal: Non-distended, Hyperactive, No tenderness Musculoskeletal: No clubbing, bulge appreciated on posterior medial right knee. Integumentary: No rashes, Skin tear to right leg is wrapped in clean dressing Neurological: Normal speech, Normal affect # Mild Ascending Colitis likely due to Clostridium Difficile Colitis - POA # History of Collagenous Colitis - Does not meet sepsis criteria - Infectious Diseases consulted and spoke with LASER ENGINEER Sgarbi - recommendations appreciated - C. Difficile - stool antigen positive, toxin negative - PCR returned positive - Given clinical symptoms suspect she has active infection - Continue PO vancomycin - Gastroenterology consulted - recommendations appreciated - Continue regular diet - Can consider discharge once having <3 bowel movements per day - Started cholestyramine # Syncope - suspect Vasovagal # Generalized Weakness with Ground-Level Fall with skin tear to Right Leg Differential diagnoses include, but are not limited to, vasovagal syncope, orthostatic hypotension, cardiac etiology (i.e. arrhythmia, valvulopathy), and neurogenic etiologies. - Radiology: - CT head/cervical spine/chest/abdomen/pelvis = "no acute intracranial abnormality is seen. A cervical fracture is not visualized. If the patient continues have symptoms to suggest intracranial/spinal cord pathology MRI be recommended. Wall of the ascending colon appears mildly thickened. This may indicate a mild colitis." - Right tib/fib x-ray = "no fracture is seen. Osteoporosis" - Management plan: - Request orthostatic vital signs - Transthoracic echocardiogram - PT consulted # Posterior Right Knee Lesion Differential diagnoses include, but are not limited to, a Oquendo's cyst, lipoma, or sebaceous cyst. - CT right knee = "somewhat elongated 1.8 centimeter posterior knee hypo dermal soft tissue density which is nonspecific, could relate to a small focus of subcutaneous soft tissue inflammation or a small sebaceous cyst. 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 There is a small amount of fluid likely present centrally as well within this structure. This is a nonspecific finding and of unclear etiology. Consider follow-up MR imaging of the right knee." - MRI unavailable on weekend - ordered for 10/02/2022 # Elevated LFTs - improved - Gastroenterology consulted and spoke with Dr. 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
[2022-10-01] MEDS: clonazePAM 1 MG TAB PO PRN (20:48)
[2022-10-02] MEDS: VANCOMYCIN ORAL SOLN 250 MG/5 ML OSYR PO SCH ×3 (03:33→14:57)
[2022-10-02 04:14] LABS: Magnesium 1.7 mg/dL (1.6-2.4); Potassium 4.5 mEq/L (3.5-5.1)
--- NOTE | 2022-10-02 07:20 | ECHO ---
HEIGHT: 5 ft 5 in WEIGHT: 165 lb 4 oz DATE OF STUDY: 09/29/[address]: Valdemar Sosa MD 2-DIMENSIONAL: YES M.MODE: YES DOPPLER: YES COLOR FLOW: YES TDS: PORTABLE: YES DEFINITY: BUBBLE STUDY: DIAGNOSIS: SYNCOPE CARDIAC HISTORY: CATHERIZATION: NO SURGERY: NO PROSTHETIC VALVE: NO PACEMAKER: NO MEASUREMENTS (cm) DIASTOLIC (NORMALS) SYSTOLIC (NORMALS) IVSd 1.0 (0.6-1.2) LA Diam 3.3 (1.9-4.0) LVEF 55% LVIDd 4.6 (3.5-5.7) LVIDs 3.6 (2.0-3.5) %FS 21% LVPWd 1.1 (0.6-1.2) Ao Diam 2.3 (2.0-3.7) 2 DIMENSIONAL ASSESSMENT: RIGHT ATRIUM: NORMAL LEFT ATRIUM: NORMAL RIGHT VENTRICLE: NORMAL LEFT VENTRICLE: NORMAL TRICUSPID VALVE: MILD TRICUSPID REGURGITATION MITRAL VALVE: MILD MITRAL REGURGITATION PULMONIC VALVE: NORMAL AORTIC VALVE: MILD AORTIC INSUFFICIENCY PERICARDIAL EFFUSION: NONE AORTIC ROOT: NORMAL LEFT VENTRICULAR WALL MOTION: NORMAL DOPPLER/COLOR FLOW: SEE BELOW COMMENTS: 1. NORMAL LEFT VENTRICULAR EJECTION FRACTION 55-60% WITH NORMAL WALL MOTION 2. MODERATE DIASTOLIC DYSFUNCTION 3. MILD MITRAL REGURGITATION 4. MILD TRICUSPID REGURGITATION 5. MODERATE PULMONARY HYPERTENSION WITH RIGHT VENTRICULAR SYSTOLIC PRESSURE OF 50-55 mmHg TECHNOLOGIST: NARCISO MCDONALD
[2022-10-02] MEDS ORDERED: MAGNESIUM SULFATE 1 gm IVPB 1 GM/100 ML BAG IV ONE (09:00)
[2022-10-02] MEDS: EDOXABAN TOSYLATE 60 MG PO SCH (09:00)
[2022-10-02] MEDS: Banana Flakes/T-Galactooligos 1 Dose Packet PO SCH (09:00)
--- NOTE | 2022-10-02 09:20 | P.PN ---
Date of Service: 10/02/22 Chief Complaint: Diarrhea Subjective: Patient seen and examined at bedside. Reports improvement in diarrhea. No new or worsening complaint. Daughter at bedside. Physical Examination Temp Pulse Resp BP Pulse Ox 97.9 F 61 16 132/59 L 93 10/02/22 08:00 10/02/22 08:00 10/02/22 08:00 10/02/22 08:00 10/02/22 08:00 General: Alert, In no apparent distress, Oriented x3 HEENT: Atraumatic, Normocephalic Neck: Supple, JVD not distended Respiratory: Clear to auscultation bilaterally, On room air. Cardiovascular: trace BLE edema, Normal pulses Gastrointestinal: Soft and benign, Hyperactive, + diarrhea Integumentary: No rashes, No breakdown Neurological: Normal speech, Normal tone, Normal affect Laboratory Data - Reviewed Microbiology Data - Reviewed Imagings Data: - Reviewed Medication List: Reviewed Assessment and Plan Problem List Atrial Fibrillation, Chronic Hypertensi Hyperlipidemia Syncope Generalized weakness Anemia Severe PCM Colitis, C. difficile Infection - CT abdomen: "Wall of the ascending colon appears mildly thickened. This may indicate a mild colitis" - Abdominal Ultrasound 09/26: "Unremarkable examination" - C.difficile Antigen= positive, Toxin= negative - Stool culture 09/26: pending - Fecal leukocyte 09/26: No WBC seen - On Vancomycin 125 mg PO QID (started 09/27) - On probiotic and questran - Diarrhea improving. Appetite improving. Leukocytosis resolved. Afebrile. Blood cultures 09/26: no growth to date Urine culture: <10,000 CFU/mL ; mixed ariane Recommendations - Continue Vancomycin PO x 10 days (started 09/27) - Currently day 6 of 10. - Continue Probiotic and Questran. Take Vanco PO 1 hour before OR 4 hours after Questran dose - Maintain adequate nutrition and hydration - Follow up with stool culture reports ID will follow up and monitor patient closely. Case discussed with Namrata Bowens
[2022-10-02] MEDS: LACTOBACILLUS/ACIDOPHILUS TAB PO SCH (09:52)
[2022-10-02] MEDS: LOSARTAN POTASSIUM 50 MG TABLET PO SCH (09:52)
[2022-10-02] MEDS: POTASSIUM 25 MEQ EFFERV TAB PO SCH (09:52)
[2022-10-02] MEDS: CHOLESTYRAMINE/ASP 4 GM/PKT PO SCH (09:52)
[2022-10-02] MEDS: AMLODIPINE 2.5 MG TAB PO SCH (09:52)
[2022-10-02] MEDS: AMIODARONE HCL 200 MG TAB PO SCH (09:53)
[2022-10-02] MEDS: ENOXAPARIN 40 MG/0.4 ML SQ SCH (09:53)
[2022-10-02] MEDS: ENSURE CLEAR 200 ML CAN PO SCH (09:53)
--- NOTE | 2022-10-02 11:45 | P.PN ---
Date of Service: 10/02/22 Subjective: Patient doing well with no new complaints. Clinical symptoms are improved. Anticipate discharge later today ROS: 10 point ROS as noted above, otherwise negative Physical Exam: GEN: Alert, oriented, NAD HEENT: Normal conjunctiva, sclera anicteric CV: Regular rate & rhythm, no edema Pulm: Nonlabered respiraitons on room air ABD: Soft, nontender, nondistended MSK: No joint tenderness Integumentary: No rashes Neuro: Normal speech, normal affect vitals reviewed Problem List: Mild Ascending Colitis likely due to Clostridium Difficile Colitis - POA History of Collagenous Colitis Syncope - suspect Vasovagal Generalized Weakness with Ground-Level Fall with skin tear to Right Leg Posterior Right Knee Lesion Elevated LFTs - improved Chronic Atrial Fibrillation 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
--- NOTE | 2022-10-02 12:59 | RAD REPORT ---
EXAM DESCRIPTION: MRI - Knee Right W/Wo Cont - 10/02/2022 9:23 am CLINICAL HISTORY: posterior knee lesion COMPARISON: Knee Right Wo Cont dated 09/29/2022T of the right knee 09/29/2022 TECHNIQUE: Multiplanar multisequence MRI of the right knee, obtained before and after intravenous administration of 17 mL MultiHance. FINDINGS: Motion as well as extensive layering bone artifacts on multiple imaging sequences limit ev aluation, despite attempts at repeat imaging. Articular surface irregularity along the posterior margin of the medial tibial plateau, with pronounc ed subchondral edema. There is somewhat poor defined crescentic T2 demarcation of the region, as best appreciated on series 7 image 11. Medial posterior subcutaneous tissue cystic lesion, demonstrates thick marginal enhancement with mult iple internal fluid locules. Focus of increased intrinsic T1 hyperintensity seen on the axial non-fat sat T1 images, suggest some internal fat content. It appears stable to slightly decreased in size co mpared to the prior CT, allowing for differences in technique, measuring 1.6 x 1.6 centimeter in grea test axial dimensions. The medial meniscus demonstrates marked degeneration along the posterior horn with diminution and los s of contour. Probable underlying complex tear is. Marked diminution along the body is well. The late ral meniscus is intact. Advanced tricompartmental osteoarthritic changes with large regions of articular cartilage loss along the medial weight-bearing and patellofemoral compartments. The ACL appears chronically torn. The PCL is buckled. Extensive osteophytes in the intertrochanteric region alter the course of the ligaments and limit evaluation. The collateral ligaments are intact. [id number] fatty atrophy of the muscles surrounding the knee. Static patellar alignment is normal. Patellar retinacula are intact. Patellar and quadriceps tendons are normal. Small significant joint effusion and small Oquendo's cyst. IMPRESSION: Stable to slightly decreased size of the medial posterior subcutaneous tissue lesion whi ch demonstrates internal cystic components and thick marginal enhancement. Findings may reflect a phl egmon or infected sebaceous cyst. Medial tibial plateau subchondral signal abnormality posteriorly as above, could relate to a healing fracture or an osteochondral lesion. 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 Complex tears and degeneration of the medial meniscus posterior horn. Likely degeneration with volume termination of the body of the medial meniscus as well. Small joint effusion and a small non ruptured Oquendo cyst.
--- NOTE | 2022-10-02 15:12 | P.DS ---
Disposition: ROUTINE DISCHARGE Discharge Condition: GOOD Reason for Admission: Enteritis Consultations: Infectious Disease - Dr. Crockett GI - Dr. Edge Brief History of Present Illness: 82yo F, PMH: atrial fibrillation, hypertension, hypothyroidism, hyperlipidemia Patient presents to the emergency department with chief complaint of fall/syncope/diarrhea. She was admitted to the hospital [facility] [place] on the of this month for hyponatremia and subsequently transferred to [facility] where she was discharged from on the . She was subsequently seen by her primary care provider on the and prescribed Macrobid for urinary tract infection as she has been feeling weak. Today she had an episode of diarrhea and while standing in the bathroom became lightheaded and had a syncopal episode collapsing onto her granddaughter. She did not have any injuries at the time. Her labs were significant for leukocytosis white blood cell count 19.3 hemoglobin 11.6 medic at 35.6 sodium 132 potassium 3.3 creatinine 1.33 AST 54 ALT 68 alk phos [address] of the head/C-spine/chest abdomen pelvis was performed which revealed thickening of the ascending colon which may indicate a mild colitis. Patient does report diarrhea which has been ongoing over the course of last couple months on and off, worse the last few days. She reports 2-3 loose stools per day, she has been on antibitics recently. She was started on rocephin/flagyl in the ED. 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 Patricio at [phone] if any questions regarding hospital stay -Please call nursing station at [phone] if any nursing or medication questions -Return to the emergency room if symptoms worsen Physical Exam: GEN: Alert, oriented, NAD HEENT: Normal conjunctiva, sclera anicteric CV: Regular rate & rhythm, no edema Pulm: Nonlabered respiraitons on room air ABD: Soft, nontender, nondistended MSK: No joint tenderness Integumentary: Skin tear to right leg is wrapped in clean dressing Neuro: Normal speech, normal affect Vital Signs/Physical Exam: Temp Pulse Resp BP Pulse Ox 97.6 F 70 16 145/69 H 95 10/02/22 12:00 10/02/22 12:00 10/02/22 12:00 10/02/22 12:00 10/02/22 12:00 Laboratory Data at Discharge: WBC 5.60 thou/uL (4.3-10.9) 09/29/22 05:33 Hgb 8.7 g/dL (12.0-15.0) L 09/30/22 06:32 Hct 25.6 % (36.0-45.0) L 09/30/22 06:32 Plt Count 251 thou/uL (152-406) 09/29/22 05:33 PT 17.0 SECONDS (9.5-12.5) H 09/26/22 15:45 INR 1.55 09/26/22 15:45 Sodium 134 mEq/L (136-145) L 10/02/22 02:58 Potassium 4.5 mEq/L (3.5-5.1) D 10/02/22 02:58 BUN 5 mg/dL (7-18) L 10/02/22 02:58 Creatinine 0.97 mg/dL (0.55-1.02) 10/02/22 02:58 Glucose 83 mg/dL (74-106) 10/02/22 02:58 Phosphorus 3.5 mg/dL (2.5-4.9) 10/01/22 04:35 Magnesium 1.7 mg/dL (1.6-2.4) 10/02/22 02:58 Total Bilirubin 0.3 mg/dL (0.2-1.0) 09/29/22 05:33 AST 35 U/L (15-37) 09/29/22 05:33 ALT 44 U/L (13-56) 09/29/22 05:33 Alkaline Phosphatase 86 U/L (45-117) 09/29/22 05:33 Lipase 34 U/L (13-75) 09/26/22 15:45 Home Medications: Amiodarone HCl [Cordarone*] 200 mg PO DAILY 09/26/22 Amlodipine [Norvasc*] 2.5 mg PO DAILY 09/26/22 Edoxaban Tosylate [Savaysa] 60 mg PO DAILY 09/26/22 Furosemide [Lasix*] 20 mg PO DAILY 09/26/22 Levothyroxine Sodium 100 mcg PO DAILY 09/26/22 Lisinopril [Zestril] 2.5 mg PO DAILY 09/26/22 Losartan Potassium 50 mg PO DAILY 09/26/22 Pravastatin [Pravachol*] 40 mg PO DAILY 09/26/22 clonazePAM [Clonazepam] 1 mg PO BEDTIME 09/26/22 Cholestyramine/Asp [Questran Light*] 2 gm PO DAILY WITH BREAKFAST #7 packet 10/02/22 Lactose-Reduced Food [Boost Men] 237 ml PO BID #60 bottle 10/02/22 Vancomycin Oral Soln [Vancocin HCl*] 5 ml PO Q8H #150 ml 10/02/22 New Medications: Lactose-Reduced Food [Boost Men] 237 ml PO BID #60 bottle Cholestyramine/Asp [Questran Light*] 2 gm PO DAILY WITH BREAKFAST #7 packet Vancomycin Oral Soln [Vancocin HCl*] 5 ml PO Q8H #150 ml Physician Discharge Instructions: -DC IV and DC home -Follow-up with PCP in 1 to 2 weeks -Follow-up with lodging manager in 1 to 2 weeks -Please call Dr. Patricio at [phone] if any questions regarding hospital stay -Please call nursing station at [phone] if any nursing or medication questions -Return to the emergency room if symptoms worsen Diet: Regular Activity: Fall precautions Followup: NONE,NONE [Primary Care Provider] - Time spent managing pt's care (in minutes): 45
[2022-10-02 16:19] VITALS: BP 128/57; TEMP 97.7
[2022-10-02] MEDS ORDERED: Banana Flakes/T-Galactooligos 1 Dose Packet PO SCH (21:00)
[2022-10-02] MEDS ORDERED: ENSURE HIGH PROTEIN 237 ML CAN PO SCH (21:00)
== END 2022-10-02 16:42 | disposition home health service (06) | DRG 988 ==
LOC: ER 15:30 → 2ND 19:29
PROVIDERS: ADMIT Internal Medicine; ATTEND Hospitalist
PROC: 0JQN0ZZ Repair Right Lower Leg Subcutaneous Tissue and Fascia, Open Approach (ICD-10-PCS; principal; 2022-09-26)
PROC: 0JQQ0ZZ Repair Right Foot Subcutaneous Tissue and Fascia, Open Approach (ICD-10-PCS; 2022-09-26)
DX: A04.72 Enterocolitis due to Clostridium difficile, not specified as recurrent (principal); I48.20 Chronic atrial fibrillation, unspecified; E78.5 Hyperlipidemia, unspecified; I10 Essential (primary) hypertension; E03.9 Hypothyroidism, unspecified; S81.811A Laceration without foreign body, right lower leg, initial encounter; S91.011A Laceration without foreign body, right ankle, initial encounter; E87.6 Hypokalemia; M25.861 Other specified joint disorders, right knee; E05.90 Thyrotoxicosis, unspecified without thyrotoxic crisis or storm; J45.909 Unspecified asthma, uncomplicated; D72.829 Elevated white blood cell count, unspecified; R55 Syncope and collapse; Z88.8 Allergy status to other drugs, medicaments and biological substances; Z79.890 Hormone replacement therapy; Z79.899 Other long term (current) drug therapy
CPT/HCPCS: 36415; 70450; 71045; 71250; 72125; 73700; 76705; 76881; 80048; 80053; 80076; 81001; 83690; 83735; 83880; 84100; 84132; 84439; 84443; 84484; 85014; 85018; 85025; 85610; 87040; 87045; 87046; 87086; 87088; 87177; 87209; 87324; 87425; 87493; 89055; 90471; 90714; 93005; 93306; 96374; 96375; 97116; 97161; 97530; 99285; A9577; J0696; J1650; J2405; J3010; J3475; J7030; J7040; J7120

== ENCOUNTER 2023-07-28 10:10 | Inpatient (IN) | payer BC, OTHER ==
--- OUTSIDE RECORDS SUMMARY | 2023-07-28 10:16 | XMS REPORT | Continuity of Care Document ---
Author Name Unknown Address [address] [facility] [address] [place] [address] [facility] Address [address] [facility] [address] [place] [address] Care Team Providers Care Buyer Assistant Name Role Phone BRYN GARCIA Primary Care Physician Unavailab le [id number] Attending Clinician Unavailable RHONA HERRERA Attending Clinician Yaneth viveros RADIOLOGY Attending Clinician Unavailable [email or web address] Attending Clinician Unavailmary peacock Doctor Unassigned, [place] Attending Clinician U Ulices Patricio Rahil Attending Clinician Unavail Nalini Barr RN Attending Clinician Unavailab TONJA Sam Attending Clinician UnavailJayant Donato MD Attending Clinician [phone] Tonja Patricio MD Attending Clinician [phone] Rhona Herrera MD Attending Clinician + [phone] NIXON CHAMBERLAIN Attending Clinician Unavailable LYNDSAY MYERS Attending Clinician Unavaila ALLY Waddell Attending Clinician Un available [id number] Admitting Clinician Unavailable RHONA HERRERA Admitting Clinician Vanessalatesha felice [email or web address] Admitting Clinician UnavailUlices Coronel Rahil Admitting Clinician Unavail able TONJA PATRICIO Admitting Clinician UnavailTonja Strickland MD Admitting Clinician Rhona Herrera MD Admitting Clinician + [phone] ALLY RITTER Admitting Clinician Un available Payers Payer Name Policy Type Policy Number Effective Date Expirati on Date Source [facility] [id number] BCTI BCTI [id number] MEDICARE PART A \\T\\ B [id number] 2004 00:00:00 [employer] TRADITIONAL [id number] 2011 00:00:00 Problems Condition Name Condition Details Condition Category Status Onset Date Resolution Date Last Treatment Date Treating Clinician Comments Source Syncope Syncope Disease Active 09-07 00:00: 00 [facility] Paroxysmal atrial fibrillati on Paroxysmal atrial fibrillati on Disease Active 09-07 00:00: 00 [facility] Elevated brain natriureti c peptide (BNP) level Elevated brain natriureti c peptide (BNP) level Disease Active 09-07 00:00: 00 [facility] Primary hypertensi on Primary hypertensi on Disease Active 09-07 00:00: 00 [facility] Other hyperlipid emia Other hyperlipid emia Disease Active 09-07 00:00: 00 [facility] Coronary artery calcificat ion Coronary artery calcificat ion Disease Active 09-07 00:00: 00 [facility] Cardiomyop athy Cardiomyop athy Disease Active 09-07 00:00: 00 [facility] Fall, initial encounter Fall, initial encounter Disease Active - 00:00: 00 [facility] Degenerati on of lumbar interverte bral disc Degenerati on of lumbar interverte bral disc Disease Active 07-31 00:00: 00 [facility] Allergies, Adverse Reactions, Alerts Allergy Name Allergy Type Status Severity Reaction(s) Onset Date Inactive Date Treating Clinician Comments Source DABIGATR AN ETEXILAT E DRUG INGREDI Active Med Swelling 08-06 00:00: 00 [facility] RIVAROXA BAN DRUG INGREDI Active Unknown-Cmnt 08-06 00:00: 00 [facility] ROPINIRO LE DRUG INGREDI Active Unknown-Cmnt 08-06 00:00: 00 [facility] Dabigatr an Etexilat e Propensi ty to adverse reaction s Active Swelling 08-06 00:00: 00 [facility] Ropiniro le Drug Intolera nce Active Unknown - See comments 08-06 00:00: 00 Nausea [facility] Rivaroxa ban Drug Intolera nce Active Unknown - See comments 08-06 00:00: 00 Patient states shortness of breath or n/v - patient can't remember. Rash [facility] dabigatr an etexilat e DA Active [place] 08-28 00:00: 00 [facility] rivaroxa ban DA Active [place] 08-28 00:00: 00 [facility] NO KNOWN ALLERGIE S Drug Class Active [facility] Social History Social Habit Start Date Stop Date Quantity Comments Source History SDOH Alcohol Std Drinks [facility] History SDOH Alcohol Binge [facility] History SDOH Social Connections Get Together [facility] History SDOH Social Connections [facility] History SDOH Social Connections Membership [facility] History SDOH Social Connections Meetings [facility] SD[facility] Alcohol Frequency 2022-09-07 00:00:00 2022-09-07 00:00:00 1 [facility] History SDOH Social Connections Phone 2022-09-07 00:00:00 2022-09-07 00:00:00 5 [facility] History SDOH Social Connections Living 2022-09-07 00:00:00 2022-09-07 00:00:00 4 [facility] History SDOH Physical Activity DPW 2022-09-07 00:00:00 2022-09-07 00:00:00 0 [facility] History SDOH Physical Activity MPS 2022-09-07 00:00:00 2022-09-07 00:00:00 0 [facility] History SDOH Financial 2022-09-07 00:00:00 2022-09-07 00:00:00 1 [facility] History SDOH Food Worry 2022-09-07 00:00:00 2022-09-07 00:00:00 1 [facility] History SDOH Food Scarcity 2022-09-07 00:00:00 2022-09-07 00:00:00 1 [facility] History SDOH Transport Med 2022-09-07 00:00:00 2022-09-07 00:00:00 2 [facility] History SDOH Transport Non-Med 2022-09-07 00:00:00 2022-09-07 00:00:00 2 [facility] History SDOH Housing Unable to Pay 2022-09-07 00:00:00 2022-09-07 00:00:00 2 [facility] History SDOH Housing Places Lived 2022-09-07 00:00:00 2022-09-07 00:00:00 1 [facility] History SDOH Housing Homeless Last Year 2022-09-07 00:00:00 2022-09-07 00:00:00 2 [facility] Exposure to SARS-CoV-2 (event) 2022-08-27 00:00:00 2022-09-06 20:16:00 Not sure [facility] Alcohol intake 2022-05-10 00:00:00 2022-05-10 00:00:00 Lifetime non-drinker (finding) [facility] History of Social function 2022-05-09 00:00:00 2022-05-09 00:00:00 [facility] Sex Assigned At 1940 00:00:00 1940 00:00:00 [facility] Smoking Status Start Date Stop Date Source Never smoked tobacco [facility] Medications Ordered Medication Name Filled Medication Name Start Date Stop Date Current Medication? Ordering Clinician Indication Dosage Frequency Signature (SIG) Comments Components Source pantoprazol e 40 mg EC tablet 09-12 00:00: 00 Yes 40mg Take 1 tablet by mouth in the morning. [facility] docusate 100 mg capsule 09-12 00:00: 00 Yes 100mg Take 1 capsule by mouth in the morning. [facility] tamsulosin 0.4 mg 24 hr capsule 09-12 00:00: 00 Yes .4mg Take 1 capsule by mouth in the morning. [facility] amLODIPine 5 mg tablet 09-11 17:14: 38 Yes 2.5mg Take 0.5 tablets by mouth in the morning. [facility] mometasone 220 mcg/ actuation (30) inhaler 09-11 17:14: 38 Yes 2{puff} Inhale 2 Puffs daily. [facility] ATENOLOL ORAL 09-11 17:14: 38 Yes 50mg Take 50 mg by mouth daily. Indication s: takes at night [facility] Levothyroxi ne 100 mcg capsule 09-11 17:14: 38 Yes 100ug Take 1 capsule by mouth in the morning. [facility] losartan-hy drochloroth iazide 100-12.5 mg per tablet 09-11 17:14: 38 Yes 1{tbl} Take 1 tablet by mouth in the morning. [facility] dronedarone 400 mg tablet 09-11 17:14: 38 Yes 400mg Take 400 mg by mouth 2 (two) times daily with meals. [facility] pravastatin 40 mg tablet 09-11 17:14: 38 Yes 40mg Take 1 tablet by mouth at bedtime. [facility] edoxaban 60 mg Tab 09-11 17:14: 38 Yes 1{tbl} Take 1 tablet by mouth daily. [facility] B.animalis, bifid,infan tis,long (PROBIOTIC 4X ORAL) 09-11 17:14: 38 Yes 1{tbl} Take 1 tablet by mouth daily. [facility] amiodarone 200 mg tablet 09-11 17:14: 38 Yes 100mg Take 0.5 tablets by mouth in the morning. [facility] Cholecalcif aurelio, Vitamin D3, 125 mcg (5,000 unit) tablet 09-11 17:14: 38 Yes 5000U Take 1 tablet by mouth in the morning. [facility] spironolact one 25 mg tablet 09-11 17:14: 38 Yes 25mg Take 1 tablet by mouth in the morning and 1 tablet in the evening. [facility] furosemide (LASIX) 40 mg tablet 09-11 17:14: 38 Yes 40mg Take 1 tablet by mouth in the morning. [facility] foLIC acid 1 mg tablet 09-11 17:14: 38 Yes 1mg Take 1 tablet by mouth in the morning. [facility] tamsulosin (FLOMAX) capsule 0.4 mg 09-11 15:00: 00 Yes .4mg 0.4 mg, Oral, DAILY, First dose on Sun09/11/22 at 1000, Until Discontinu ed, Routine [facility] CLONAZEPAM ORAL 09-11 13:38: 36 09-11 00:00 :00 No 1mg Take 1 mg by mouth. Indication s: at night [facility] Dexlansopra zole 60 mg capsule 09-11 13:38: 36 09-11 00:00 :00 No 1{capsu le} Take 1 capsule by mouth in the morning. [facility] tolvaptan (SAMSCA) tablet 7.5 mg 09-11 13:30: 00 09-11 13:59 :00 No 7.5mg 7.5 mg, Oral, ONCE, 1 dose, On Sun09/11/22 at 0830, Routine
modular set crew member approving Restricted medication : CHRISTOFER KRAUSE [facility] clonazePAM 0.5 mg tablet 09-11 00:00: 00 Yes .5mg Take 1 tablet by mouth every 8 (eight) hours as needed (anxiety). Indication s: at night [facility] traMADoL 100 mg Tab 09-11 00:00: 00 Yes 100mg Take 100 mg by mouth every 6 (six) hours as needed for Pain (scale 4-6). [facility] traMADoL (ULTRAM) tablet 100 mg 09-10 13:59: 20 Yes 100mg 100 mg, Oral, Q6HPRN, Starting on Sun09/10/22 at 0859, Until Discontinu ed, Routine, Pain (scale 4-6) [facility] HYDROcodone -acetaminop hen (NORCO 5) 5-325 mg tablet 1 tablet 09-10 13:59: 02 Yes 1{tbl} 1 tablet, Oral, Q6HPRN, Starting on Sun09/10/22 at 0859, Until Discontinu ed, Routine, Pain (scale 7-10) [facility] sodium chloride tablet 1 g 09-09 02:30: 00 09-09 02:29 :00 No 1g 1 g, Oral, ONCE, 1 dose, On Sun09/08/22 at 2130, Routine [facility] apixaban (ELIQUIS) tablet 2.5 mg 09-08 14:00: 00 Yes 2.5mg 2.5 mg, Oral, BID, First dose (after last modificati on) on Sun09/08/22 at 0900, Until Discontinu ed
Cynthia cations: Non-Valvul ar Atrial Fibrillati on [facility] levothyroxi ne (SYNTHROID) tablet 75 mcg 09-08 11:00: 00 Yes 75ug 75 mcg, Oral, QAM-0600, First dose (after last modificati on) on Sun09/08/22 at 0600, Until Discontinu ed, Routine [facility] pravastatin (PRAVACHOL) tablet 40 mg 09-08 02:00: 00 Yes 40mg 40 mg, Oral, QHS, First dose on Sun09/07/22 at 2100, Until Discontinu ed, Routine [facility] dexamethaso ne (DECADRON PHOSPHATE) injection 2 mg 09-07 17:00: 00 09-08 10:12 :00 No 2mg 2 mg, Intravenou s, Q6H, 4 doses, First dose on Sun09/07/22 at 1200, Last dose on Sun09/08/22 at 0600, 1 mL [facility] sulfur hexafluorid e microsphr (LUMASON) injection 5 mL 09-07 16:00: 00 09-07 16:00 :00 No [id number] 5mL 5 mL, Intravenou s, ONCE, 1 dose, On Sun09/07/22 at 1100, Routine
modular set crew member approving Restricted medication : BERNARD ARNOLD [facility] magnesium sulfate in water 2 gram/50 mL (4 %) infusion 2 g 09-07 15:00: 00 09-07 16:19 :00 No 2g 2 g, IV Piggyback, Administer over 60 Minutes, ONCE, 1 dose, On Sun09/07/22 at 1000, Routine [facility] amiodarone (PACERONE) tablet 100 mg 09-07 14:00: 00 Yes 100mg 100 mg, Oral, DAILY, First dose on Sun09/07/22 at 0900, Until Discontinu ed, Routine [facility] pantoprazol e (PROTONIX) EC tablet 40 mg 09-07 14:00: 00 Yes 40mg 40 mg, Oral, DAILY, First dose on Sun09/07/22 at 0900, Until Discontinu ed [facility] cholecalcif aurelio (vitamin D3) tablet 5,000 Units 09-07 14:00: 00 Yes 5000U 5,000 Units, Oral, DAILY, First dose on Sun09/07/22 at 0900, Until Discontinu ed [facility] docusate (COLACE) capsule 100 mg 09-07 14:00: 00 Yes 100mg 100 mg, Oral, DAILY, First dose on Sun09/07/22 at 0900, Until Discontinu ed, Routine [facility] NaCl 0.9% (NS) IV infusion 1,000 mL 09-07 13:45: 00 09-09 19:24 :53 No 1000mL at 75 mL/hr, IV Infusion, CONTINUOUS , Starting on Sun09/07/22 at 0845, Until 09/09/22 at 1424, Routine [facility] clonazePAM (KLONOPIN) tablet 0.5 mg 09-07 12:23: 30 Yes .5mg 0.5 mg, Oral, Q8HPRN, Starting on Sun09/07/22 at 0723, Until Discontinu ed, anxiety [facility] ondansetron (ZOFRAN (PF)) injection 4 mg 09-07 04:03: 33 Yes 4mg 4 mg, Slow IV Push, Q6HPRN, Starting on Sun09/06/22 at 2303, Until Discontinu ed, Routine, Nausea and Vomiting (N/V) [facility] HYDROcodone -acetaminop hen (NORCO 5) 5-325 mg tablet 1 tablet 09-07 04:03: 12 09-09 04:02 :12 No 1{tbl} 1 tablet, Oral, Q6HPRN, Starting on Sun09/06/22 at 2303, Until Sun09/08/22 at 2302, Routine, Pain (scale 4-6) [facility] acetaminoph en (TYLENOL) tablet 650 mg 09-07 04:03: 08 Yes 650mg 650 mg, Oral, Q6HPRN, Starting on Sun09/06/22 at 2303, Until Discontinu ed, Routine, Pain (scale 1-3) [facility] NaCl 0.9% (NS) bolus infusion 1,000 mL 09-07 03:45: 00 09-07 05:00 :00 No 1000mL at 999 mL/hr, 1,000 mL, IV Piggyback, ONCE, 1 dose, On Sun09/06/22 at 2245, STAT [facility] ondansetron (ZOFRAN (PF)) injection 4 mg 09-07 02:30: 00 09-07 02:19 :00 No 4mg 4 mg, Slow IV Push, ONCE, 1 dose, On Sun09/06/22 at 2130, DAO [facility] morpHINE (4 mg/mL) injection 4 mg 09-07 02:30: 00 09-07 02:19 :00 No 4mg 4 mg, Slow IV Push, ONCE, 1 dose, On Sun09/06/22 at 2130, STAT [facility] iopamidol (ISOVUE 370-500 mL) injection 100 mL 09-07 02:00: 00 09-07 02:00 :00 No [id number] 100mL 100 mL, Intravenou s, ONCE, 1 dose, On Sun09/06/22 at 2100, Routine [facility] water for irrigation irrigation solution 05-09 19:34: 00 05-09 20:45 :03 No PRN, Starting on Sun05/09/22 at 1334, Until Sun05/09/22 at 1445, Routine, Intra-op [facility] simethicone (GAS RELIEF (SIMETHICON E)) 40 mg/0.6 mL drops 05-09 19:33: 00 05-09 20:45 :03 No PRN, Starting on Sun05/09/22 at 1333, Until Sun05/09/22 at 1445, Routine, Intra-op [facility] lactated ringers IV infusion 1,000 mL 05-09 18:45: 00 05-09 18:44 :00 No 1000mL at 42 mL/hr, 1,000 mL, IV Infusion, ONCE, 1 dose, On Sun05/09/22 at 1245, Routine, DSU Pre-op [facility] ATENOLOL ORAL 05-09 15:37: 55 Yes 50mg Take 50 mg by mouth daily. Indication s: takes at night [facility] CLONAZEPAM ORAL 05-09 15:37: 55 Yes 1mg Take 1 mg by mouth. Indication s: at night [facility] Dexlansopra zole 60 mg capsule 05-09 15:37: 55 Yes 1{capsu le} Take 1 capsule by mouth in the morning. [facility] Levothyroxi ne 100 mcg capsule 05-09 15:37: 55 Yes 1{capsu le} Take 1 capsule by mouth in the morning. [facility] losartan-hy drochloroth iazide 100-12.5 mg per tablet 05-09 15:37: 55 Yes 1{tbl} Take 1 tablet by mouth daily. [facility] dronedarone 400 mg tablet 05-09 15:37: 55 Yes 400mg Take 400 mg by mouth 2 (two) times daily with meals. [facility] pravastatin 40 mg tablet 05-09 15:37: 55 Yes 40mg Take 40 mg by mouth at bedtime. [facility] edoxaban 60 mg Tab 05-09 15:37: 55 Yes 1{tbl} Take 1 tablet by mouth daily. [facility] amiodarone 200 mg tablet 05-09 15:37: 55 Yes 100mg Take 100 mg by mouth in the morning. [facility] Cholecalcif aurelio, Vitamin D3, (VITAMIN D3) 125 mcg (5,000 unit) tablet 05-09 15:37: 55 Yes 1{tbl} Take 1 tablet by mouth in the morning. [facility] amLODIPine 5 mg tablet 05-09 15:37: 55 Yes 2.5mg Take 2.5 mg by mouth in the morning. [facility] mometasone 220 mcg/ actuation (30) inhaler 05-09 15:37: 55 Yes 2{puff} Inhale 2 Puffs daily. [facility] Phenazopyri dine HCl (AZO URINARY PAIN RELIEF) 95 mg Tab 07-04 00:00: 00 09-11 00:00 :00 No [id number] 1{tbl} Take 1 tablet by mouth as needed (dysuria). [facility] Immunizations Ordered Immunization Name Filled Immunization Name Date Status Comments Source TD, NOS 2016-07-03 00:00:00 Completed [facility] TD, NOS 2016-07-03 00:00:00 Completed [facility] TD, NOS 2016-07-03 00:00:00 Completed [facility] TD, NOS 2016-07-03 00:00:00 Completed [facility] TD, NOS 2016-07-03 00:00:00 Completed [facility] TD, NOS Unknown Completed [facility] Vital Signs Vital Name Observation Time Observation Value Comments S ource Systolic blood pressure 2022-09-11 20:56:00 131 mm[Hg] [facility] Diastolic blood pressure 2022-09-11 20:56:00 52 mm[Hg] [facility] Heart rate 2022-09-11 20:56:00 74 /min [facility] Body temperature 2022-09-11 20:56:00 35.67 Ekaterina [facility] Respiratory rate 2022-09-11 20:56:00 18 /min [facility] Oxygen saturation in Arterial blood by Pulse oximetry 2022-09-11 20:56:00 97 /min [facility] Body weight 2022-09-11 08:20:00 84.46 kg [facility] BMI 2022-09-11 08:20:00 30.99 kg/m2 [facility] Body height 2022-09-07 00:34:00 165.1 cm [facility] Systolic blood pressure 2022-05-09 21:15:00 134 mm[Hg] [facility] Diastolic blood pressure 2022-05-09 21:15:00 67 mm[Hg] [facility] Heart rate 2022-05-09 21:15:00 72 /min [facility] Respiratory rate 2022-05-09 21:15:00 29 /min [facility] Oxygen saturation in Arterial blood by Pulse oximetry 2022-05-09 21:15:00 99 /min [facility] Body temperature 2022-05-09 20:44:00 36.78 Ekaterina [facility] Body height 2022-05-03 20:00:00 165.1 cm [facility] Body weight 2022-05-03 20:00:00 80.74 kg [facility] BMI 2022-05-03 20:00:00 29.62 kg/m2 [facility] Systolic blood pressure 2022-05-09 18:43:00 142 mm[Hg] [facility] Diastolic blood pressure 2022-05-09 18:43:00 68 mm[Hg] [facility] Heart rate 2022-05-09 18:43:00 74 /min [facility] Body temperature 2022-05-09 18:43:00 36.94 Ekaterina [facility] Respiratory rate 2022-05-09 18:43:00 19 /min [facility] Oxygen saturation in Arterial blood by Pulse oximetry 2022-05-09 18:43:00 100 /min [facility] Body height 2022-05-03 20:00:00 165.1 cm [facility] Body weight 2022-05-03 20:00:00 80.74 kg [facility] BMI 2022-05-03 20:00:00 29.62 kg/m2 [facility] Procedures Procedure Date / Time Performed Performing Clinician Source BASIC METABOLIC PANEL (NA, K, CL, CO2, GLUCOSE, BUN, CREATININE, CA) 2022-09-11 08:29:00 Yoel Betancur [facility] CBC WITH DIFF 2022-09-11 08:29:00 Yoel [facility] BASIC METABOLIC PANEL (NA, K, CL, CO2, GLUCOSE, BUN, CREATININE, CA) 2022-09-10 16:36:00 Jose Barker [facility] PHOSPHORUS 2022-09-09 09:06:00 Baron Arredondo [facility] URIC ACID 2022-09-09 09:06:00 Baron Arredondo [facility] MAGNESIUM 2022-09-09 09:06:00 Baron Arredondo [facility] OSMOLALITY, SERUM OR PLASMA 2022-09-09 09:06:00 Baron Arredondo [facility] OSMOLALITY URINE 2022-09-09 09:06:00 Baron Arredondo [facility] COMP. METABOLIC PANEL ([id number]) 2022-09-09 09:06:00 Baron Arredondo [facility] URINALYSIS 2022-09-09 09:06:00 Baron Arredondo [facility] PROTEIN CREAT RATIO URINE RANDOM 2022-09-09 09:06:00 Baron Arredondo [facility] POTASSIUM, URINE RANDOM 2022-09-09 09:06:00 Jennie Arredondo [facility] SODIUM, URINE RANDOM 2022-09-09 09:06:00 Kiara Arredondo [facility] CHLORIDE, URINE RANDOM 2022-09-09 09:06:00 Lexi Arredondo [facility] BASIC METABOLIC PANEL (NA, K, CL, CO2, GLUCOSE, BUN, CREATININE, CA) 2022-09-08 22:40:00 Baron Arredondo [facility] SODIUM URINE 2022-09-08 21:42:00 Christofer Krause [facility] MAGNESIUM 2022-09-08 10:10:00 Yoel Betancur [facility] BASIC METABOLIC PANEL (NA, K, CL, CO2, GLUCOSE, BUN, CREATININE, CA) 2022-09-08 10:10:00 Yoel Betancur [facility] CBC WITH DIFF 2022-09-08 10:10:00 [facility] 2022-09-08 10:10:00 Juanpablo Betancur [facility] OSMOLALITY URINE 2022-09-07 23:19:00 Christofer Krause [facility] SODIUM 2022-09-07 20:47:00 Christofer Krause [facility] CAROTID DUPLEX BILATERAL - BY VASCULAR LAB 2022-09-07 14:43:50 Tonja Patricio [facility] TRANSTHORACIC ECHO (TTE) COMPLETE W/ CONTRAST 2022-09-07 14:11:00 Tonja Patricio [facility] CREATINE KINASE 2022-09-07 08:59:00 Tonja Patricio [facility] MAGNESIUM 2022-09-07 08:59:00 Tonja Patricio [facility] CORTISOL AM 2022-09-07 08:59:00 Tonja Patricio [facility] OSMOLALITY, SERUM OR PLASMA 2022-09-07 08:59:00 Tonja Patricio [facility] VITAMIN B12, LEVEL 2022-09-07 08:59:00 Tonja Patricio [facility] C-REACTIVE PROTEIN 2022-09-07 08:59:00 Tonja Patricio [facility] TROPONIN I 2022-09-07 08:59:00 Tonja Patricio [facility] FREE T4 2022-09-07 08:59:00 Tonja Patricio [facility] THYROID STIMULATING HORMONE 2022-09-07 08:59:00 Tonja Patricio [facility] BASIC METABOLIC PANEL (NA, K, CL, CO2, GLUCOSE, BUN, CREATININE, CA) 2022-09-07 08:59:00 Tonja Patricio [facility] LIPID PANEL ([id number])(TOTAL CHOLESTEROL, TRIGLYCERIDES, HDL) 2022-09-07 08:59:00 Tonja Patricio [facility] SEDIMENTATION RATE 2022-09-07 08:59:00 Tonja Patricio [facility] CBC WITH DIFF 2022-09-07 08:59:00 [facility] 2022-09-07 08:59:00 Jayant Nguyen [facility] N-TERMINAL PRO-BNP 2022-09-07 08:59:00 Tonja Patricio [facility] EKG-12 LEAD 2022-09-07 03:53:31 Jayant Nguyen [facility] HB ECG ROUTINE & RHYTHM STRIP 2022-09-07 03:52:48 Jayant Nguyen [facility] CT ABDOMEN PELVIS W CONTRAST 2022-09-07 01:09:00 Jayant Nguyen [facility] CT LUMBAR SPINE W CONTRAST 2022-09-07 01:09:00 Jayant Nguyen [facility] CT THORACIC SPINE W CONTRAST 2022-09-07 01:09:00 Jayant Nguyen [facility] [facility] THORAX W CONTRAST 2022-09-07 01:09:00 Jayant Nguyen [facility] CT CERVICAL SPINE WO CONTRAST 2022-09-07 01:08:00 Jayant Nguyen [facility] CT HEAD WO CONTRAST 2022-09-07 01:08:00 Jayant Nguyen [facility] COMP. METABOLIC PANEL ([id number]) 2022-09-07 00:43:00 Jayant Nguyen [facility] CBC WITH DIFF 2022-09-07 00:43:00 Jayant Nguyen [facility] PROTHROMBIN TIME / INR 2022-09-07 00:43:00 Vita Nguyen [facility] ACTIVATED PARTIAL THRMPLAS DARRYN 2022-09-07 00:43:00 Jayant Nguyen [facility] COLONOSCOPY (ENDO) 2022-05-09 20:04:46 Bryn Garcia [facility] COLONOSCOPY (ENDO) 2022-05-09 20:04:46 Bryn Garcia [facility] COLONOSCOPY 2022-05-09 20:04:00 Rhona Herrera [facility] PATIENT QUESTIONNAIRE 2022-05-09 06:01:00 Doctor Unassigned, [place] [facility] EXTERNAL PROVIDER RECORDS 2022-05-04 06:01:00 Doctor Unassigned, [place] [facility] EXTERNAL PROVIDER RECORDS 2022-05-04 06:01:00 Doctor Unassigned, [place] [facility] EXTERNAL PROVIDER RECORDS 2022-04-28 06:01:00 Doctor Unassigned, [place] [facility] EXTERNAL PROVIDER RECORDS 2022-04-28 06:01:00 Doctor Unassigned, [place] [facility] Encounters Start Date/Time End Date/Time Encounter Type Admission Type Attending [facility] Care Facility Care Department Encounter ID Source 2022-09-08 08:07:19 Outpatient 3 [id number] ENCPL CRD [id number] [facility] [place] 2021-02-03 19:30:09 Outpatient R RHONA CHAVARRIA [facility] [id number] [facility] 2023-07-31 00:00:00 2023-07-31 00:00:[address] [facility] [id number] [facility] 2023-02-06 00:00:00 2023-02-06 00:00:00 Outpatient GC_GCBZW_Ka diyala_S [facility] [id number] [facility] 2022-10-06 00:00:00 2022-10-06 00:00:00 Patient Secure Msg Doctor Unassigned, [place] [facility] 1.2.840.114 350.1.13.10 4.2.7.2.686 [id number] [facility] 2022-09-11 18:01:00 2022-09-20 11:05:00 Inpatient 3 Ulices Ortiz ENCPL SUSAN [id number] [facility] [place] 2022-09-12 00:00:00 2022-09-12 00:00:00 Transition of Care Nalini Collado 1.2.840.114 350.1.13.10 4.2.7.2.686 [id number] [facility] 2022-09-06 19:32:00 2022-09-11 16:56:00 Inpatient X TONJA PATRICIO [facility] [id number] [facility] 2022-09-06 19:32:00 2022-09-11 16:56:00 Hospital Encounter Jayant Nguyen Mohammad A. [facility] 1.2.840.114 350.1.13.10 4.2.7.2.686 [id number] [facility] 2022-05-09 12:34:00 2022-05-09 15:24:00 Outpatient R RHONA CHAVARRIA [facility] [id number] [facility] 2022-05-09 12:34:00 2022-05-09 15:24:00 Hospital Encounter Rhona Chavarria [facility] 1.2.840.114 350.1.13.10 4.2.7.2.686 [id number] [facility] 2022-05-09 13:31:00 2022-05-09 14:12:00 Surgery Rhona Chavarria [facility] 1.2.840.114 350.1.13.10 4.2.7.2.686 [id number] [facility] 2022-05-09 00:00:00 2022-05-09 00:00:00 Orders Only Doctor Unassigned, [place] [facility] 1.2.840.114 350.1.13.10 4.2.7.2.686 [id number] [facility] 2020-06-16 10:07:59 2020-06-16 23:59:[address] [facility] [id number] [facility] 2020-06-16 00:00:00 2020-06-16 00:00:[address] [facility] [id number] [facility] 2020-03-13 09:20:00 2020-03-13 09:20:00 Outpatient R NIXON CHAMBERLAIN [facility] [id number] [facility] 2019-08-08 13:45:00 2019-08-08 13:45:[address] [facility] [id number] [facility] 2019-07-05 10:30:00 2019-07-05 10:30:00 Outpatient R LYNDSAY [facility] [id number] [facility] 2019-05-30 08:57:23 2019-05-30 23:59:00 Outpatient R RIYA SUJEYTYRONE Mendoza [facility] [id number] [facility] Results Test Description Test Time Test Comments Results Result Co mments Source [facility] [id number] 11:27:49* Test Item Value Reference Range Interpretation Comme nts NT-proBNP (test code = 6226017255) 4020 pg/mL <=450 H KRISTINA (test code = KRISTINA) Biotin has been reported to cause a negative bias, interpret results relative to patient's use of biotin. Lab Interpretation (test code = 34792-1) [facility]2023-06-02 11:25:46* Test Item Value Reference Range Interpretation Comme nts MAGNESIUM (test code = 3504566279) 1.9 mg/dL 1.7-2.4 Lab Interpretation (test cod e = 43514-0) [facility]OLIC PAN[facility] (NA, K, CL, CO2, GLUCOSE, BUN, CREATININE, CA)2022-09-08 11:25:26* Test Item Value Reference Range Interpretation Comme nts NA (test code = 5406025022) 124 mmol/L 135-145 L K (test code = 6225427830) 4.7 mmol/L 3.5-5.0 CL (test code = 6540919057) 95 mmol/L 98-108 L CO2 TOTAL (test code = 3311254455) 23 mmol/L 23-31 AGAP (test code = 2147872885) 6 2-16 BUN (test code = 4489092319) 8 mg/dL 7-23 GLUCOSE (test code = 1321855855) 125 mg/dL 70-110 H CREATININE (test code = 1123800063) 1.04 mg/dL 0.50-1.04 CALCIUM (test code = 8151340193) 8.7 mg/dL 8.6-10.6 eGFR (test code = 2380672841) 50.6 mL/min/1.73m2 KRISTINA (test code = KRISTINA) Association of Glomerular Filtration Rate (GFR) and Staging of Kidney Disease* + --+ --+ ------+| GFR (mL/min/1.73 m2) ?| With Kidney Damage ?| ?Without Kidney Damage+ --------+ --------+ +| ?>90 ?| ?Stage one ?| ? Normal ?+ ---+ ---+ -------+| ?60-89 ?| ?Stage two ?| ? Decreased GFR ? + --+ --+ ------+| ?30-59 ?| ?Stage three ?| ? Stage three ? + --+ --+ ------+| ?15-29 ?| ?Stage four ? | ? Stage four ?+ ---+ ---+ -------+| ?<15 (or dialysis) ? ?| ?Stage five ? | ? Stage five ?+ ---+ ---+ -------+ *Each stage assumes the associated GFR level has been in effect for at least three months. ?Stages 1 to 5, with or without kidney disease, indicate chronic kidney disease. Notes: Determination of stages one and two (with eGFR >59mL/min/1.73 m2) requires estimation of kidney damage for at least three months as defined by structural or functional abnormalities of the kidney, manifested by either:Pathological abnormalities or Markers of kidney damage (including abnormalities in the composition of the blood or urine or abnormalities in imaging tests). Lab Interpretation (test code = 29449-1) Abnormal [facility] WITH [id number] 10:24:40* Test Item Value Reference Range Interpretation Comme nts WBC (test code = 6690-2) 5.94 See_Comment [Automated IPXI] The system which generated this result transmitted reference range: 4.30 - 11.10 10*3/?L. The reference range was not used to interpret this result as normal/abnormal. RBC (test code = 789-8) 3.23 See_Comment L [Automated IPXI] The system which generated this result transmitted reference range: 3.93 - 5.25 10*6/?L. The reference range was not used to interpret this result as normal/abnormal. HGB (test code = 718-7) 10.8 g/dL 11.6-15.0 L HCT (test code = 4544-3) 30.3 % 35.7-45.2 L MCV (test code = 787-2) 93.8 fL 80.6-95.5 MCH (test code = 785-6) 33.4 pg 25.9-32.8 H MCHC (test code = 786-4) 35.6 g/dL 31.6-35.1 H RDW-SD (test code = 15605-1) 37.0 fL 39.0-49.9 L RDW-CV (test code = 788-0) 10.9 % 12.0-15.5 L PLT (test code = 777-3) 214 See_Comment [Automated messa ge] The system which generated this result transmitted reference range: 166 - 358 10*3/?L. The reference range was not used to interpret this result as normal/abnormal. MPV (test code = 93644-0) 8.5 fL 9.5-12.9 L NRBC/100 WBC (test code = 8840554117) 0.0 See_Comment [Automated [employer] ssage] The system which generated this result transmitted reference range: 0.0 - 10.0 /100 WBCs. The reference range was not used to interpret this result as normal/abnormal. NRBC x10^3 (test code = 5517306970) See_Comment [Automated messa ge] The system which generated this result transmitted reference range: 10*3/?L. The reference range was not used to interpret this result as normal/abnormal. GRAN MAT (NEUT) % (test code = 770-8) 89.5 % IMM GRAN % (test code = 3851852201) 1.00 % LYMPH % (test code = 736-9) 8.8 % MONO % (test code = 5905-5) 0.7 % EOS % (test code = 713-8) 0.0 % BASO % (test code = 706-2) 0.0 % GRAN MAT x10^3(ANC) (test code = 4369145220) 5.32 10*3/uL 1.88-7.09 IMM GRAN x10^3 (test code = 2045157243) 0.06 10*3/uL 0.00-0.06 LYMPH x10^3 (test code = 731-0) 0.52 10*3/uL 1.32-3.29 L MONO x10^3 (test code = 742-7) 0.04 10*3/uL 0.33-0.92 L EOS x10^3 (test code = 711-2) 0.03-0.39 L BASO x10^3 (test code = 704-7) 0.01-0.07 Lab Interpretation (test code = 75364-5) [facility] Clinic[facility]itamin B12, [id number] 20:08:30* Test Item Value Reference Range Interpretation Comme nts VIT B12 (test code = 8239573763) 286 pg/mL 240-930 KRISTINA (test code = KRISTINA) Biotin has been reported to cause a positive bias, interpret results relative to patient's use of biotin. Lab Interpretation (test code = 61755-1) [facility] Clinic[facility]-Reactive [id number] 18:17:33* Test Item Value Reference Range Interpretation Comme nts CRP (test code = 8400108178) 0.2 mg/dL <=0.8 Lab Interpretation (test cod e = 97341-1) Normal [facility] ClinicOSMOLALITY, SERUM OR [id number] 16:45:41 * Test Item Value Reference Range Interpretation Comme nts OSMOLALITY (test code = 2692-2) 266 See_Comment L [Automated messa ge] The system which generated this result transmitted reference range: 278 - 305 mOsm/kg. The reference range was not used to interpret this result as normal/abnormal. Lab Interpretation (test code = 79129-8) Abnormal [facility] ClinicCORTISOL [id number] 16:12:31* Test Item Value Reference Range Interpretation Comme nts ARIELLE AM (test code = 0314962367) 7.9 ug/dL 4.5-23.0 KRISTINA (test code = KRISTINA) Biotin has been reported to cause a positive bias, interpret results relative to patient's use of biotin. Lab Interpretation (test code = 77282-0) Normal [facility] ClinicFree [id number] 11:03:50* Test Item Value Reference Range Interpretation Comme nts FREE T4 (test code = 4722725230) 2.32 See_Comment H [Automated [employer]a ge] The system which generated this result transmitted reference range: 0.78 - 2.20 ng/dL:. The reference range was not used to interpret this result as normal/abnormal. Lab Interpretation (test code = 77197-7) Abnormal [facility] ClinicThyroid Stimulating [id number] 10:16:09 * Test Item Value Reference Range Interpretation Comme nts TSH (test code = 3439631834) 2.78 See_Comment [Automated [employer] ge] The system which generated this result transmitted reference range: 0.45 - 4.70 mIU/L. The reference range was not used to interpret this result as normal/abnormal. Lab Interpretation (test code = 69535-7) [facility] ClinicSEDIMENTATION [id number] 10:07:36* Test Item Value Reference Range Interpretation Comme nts ESR (test code = 79324-3) 20 See_Comment [Automated message] The system which generated this result transmitted reference range: 0 - 20 mm/HR. The reference range was not used to interpret this result as normal/abnormal. Lab Interpretation (test code = 49217-8) [facility] ClinicTroponin [id number] 09:57:45* Test Item Value Reference Range Interpretation Comme nts TROPONIN I (test code = 8174633809) 0.016 ng/mL <=0.034 KRISTINA (test code = KRISTINA) Reference (Normal) Range (defined by the 99th percentile reference limit): <= 0.034 ng/mL Note: Cardiac troponin begins to rise 3-4 hours after the onset of ischemia. Repeat in 4-6 hours if the sample was drawn within 3-4 hours of the onset of the symptom and found normal. Diagnosis of myocardial injury is made with acute changes in cTn concentrations with at least one serial sample above the 99th percentile upper reference limit (URL), taken together with the patient's clinical presentation. Biotin has been reported to cause a negative bias, interpret results relative to patient's use of biotin. Lab Interpretation (test code = 07034-4) [facility] ClinicN-TERMINAL [id number] 09:54:23* Test Item Value Reference Range Interpretation Comme nts NT-proBNP (test code = 9783182099) 1320 pg/mL <=450 H KRISTINA (test code = KRISTINA) Biotin has been reported to cause a negative bias, interpret results relative to patient's use of biotin. Lab Interpretation (test code = 53619-7) Abnormal [facility] ClinicLipid Panel(65968)(Total Cholesterol, Triglycerides, HDL)2022-09-07 09:46:22* Test Item Value Reference Range Interpretation Comme nts CHOL (test code = 7221011948) 171 mg/dL 120-200 HDL (test code = 5943068242) 81 mg/dL >=50 HDLC RATIO (test code = 6114022753) 2.1 <=4.5 TRIG (test code = 2145031178) 66 mg/dL 30-170 LDL CHOL (test code = 02741-2) 77 mg/dL <=160 VLDL (test code = 0031329322) 13 mg/dL 5-60 Lab Interpretation (test cod e = 57187-1) Normal [facility] ClinicMagnesium [id number] 09:46:21* Test Item Value Reference Range Interpretation Comme nts MAGNESIUM (test code = 7338605280) 1.4 mg/dL 1.7-2.4 L Lab Interpretation (test cod e = 66449-7) Abnormal [facility] Metabolic Panel (NA, K, CL, CO2, GLUCOSE, BUN, CREATININE, CA)2022-09-07 09:46:01* Test Item Value Reference Range Interpretation Comme nts NA (test code = 7644472745) 122 mmol/L 135-145 L K (test code = 5363215877) 4.6 mmol/L 3.5-5.0 CL (test code = 7551078283) 93 mmol/L 98-108 L CO2 TOTAL (test code = 1070127342) 22 mmol/L 23-31 L AGAP (test code = 1376392039) 7 2-16 BUN (test code = 4063531454) 8 mg/dL 7-23 GLUCOSE (test code = 6964604088) 95 mg/dL 70-110 CREATININE (test code = 7219576192) 1.09 mg/dL 0.50-1.04 H CALCIUM (test code = 5486346798) 8.3 mg/dL 8.6-10.6 L eGFR (test code = 0482084677) 47.9 mL/min/1.73m2 KRISTINA (test code = KRISTINA) Association of Glomerular Filtration Rate (GFR) and Staging of Kidney Disease* + --+ --+ ------+| GFR (mL/min/1.73 m2) ?| With Kidney Damage ?| ?Without Kidney Damage+ --------+ --------+ +| ?>90 ?| ?Stage one ?| ? Normal ?+ ---+ ---+ -------+| ?60-89 ?| ?Stage two ?| ? Decreased GFR ? + --+ --+ ------+| ?30-59 ?| ?Stage three ?| ? Stage three ? + --+ --+ ------+| ?15-29 ?| ?Stage four ? | ? Stage four ?+ ---+ ---+ -------+| ?<15 (or dialysis) ? ?| ?Stage five ? | ? Stage five ?+ ---+ ---+ -------+ *Each stage assumes the associated GFR level has been in effect for at least three months. ?Stages 1 to 5, with or without kidney disease, indicate chronic kidney disease. Notes: Determination of stages one and two (with eGFR >59mL/min/1.73 m2) requires estimation of kidney damage for at least three months as defined by structural or functional abnormalities of the kidney, manifested by either:Pathological abnormalities or Markers of kidney damage (including abnormalities in the composition of the blood or urine or abnormalities in imaging tests). Lab Interpretation (test code = 81541-5) Abnormal [facility] ClinicCreatine [id number] 09:45:01* Test Item Value Reference Range Interpretation Comme nts CK (test code = 6481052841) 29 U/L 33-194 L Lab Interpretation (test cod e = 26368-0) [facility]normal [facility] ClinicCBC with [id number] 09:23:38* Test Item Value Reference Range Interpretation Comme nts WBC (test code = 6690-2) 9.69 See_Comment [Automated IPXI] The system which generated this result transmitted reference range: 4.30 - 11.10 10*3/?L. The reference range was not used to interpret this result as normal/abnormal. RBC (test code = 789-8) 3.30 See_Comment L [Automated messa ge] The system which generated this result transmitted reference range: 3.93 - 5.25 10*6/?L. The reference range was not used to interpret this result as normal/abnormal. HGB (test code = 718-7) 10.8 g/dL 11.6-15.0 L HCT (test code = 4544-3) 31.1 % 35.7-45.2 L MCV (test code = 787-2) 94.2 fL 80.6-95.5 MCH (test code = 785-6) 32.7 pg 25.9-32.8 MCHC (test code = 786-4) 34.7 g/dL 31.6-35.1 RDW-SD (test code = 16570-3) 38.0 fL 39.0-49.9 L RDW-CV (test code = 788-0) 11.2 % 12.0-15.5 L PLT (test code = 777-3) 232 See_Comment [Automated messa ge] The system which generated this result transmitted reference range: 166 - 358 10*3/?L. The reference range was not used to interpret this result as normal/abnormal. MPV (test code = 46591-5) 8.6 fL 9.5-12.9 L NRBC/100 WBC (test code = 0192631550) 0.0 See_Comment [Automated [employer] ssage] The system which generated this result transmitted reference range: 0.0 - 10.0 /100 WBCs. The reference range was not used to interpret this result as normal/abnormal. NRBC x10^3 (test code = 9391513709) See_Comment [Automated messa ge] The system which generated this result transmitted reference range: 10*3/?L. The reference range was not used to interpret this result as normal/abnormal. GRAN MAT (NEUT) % (test code = 770-8) 77.2 % IMM GRAN % (test code = 2813670790) 0.60 % LYMPH % (test code = 736-9) 13.3 % MONO % (test code = 5905-5) 8.4 % EOS % (test code = 713-8) 0.2 % BASO % (test code = 706-2) 0.3 % GRAN MAT x10^3(ANC) (test code = 4617102697) 7.48 10*3/uL 1.88-7.09 H IMM GRAN x10^3 (test code = 3517403723) 0.06 10*3/uL 0.00-0.06 LYMPH x10^3 (test code = 731-0) 1.29 10*3/uL 1.32-3.29 L MONO x10^3 (test code = 742-7) 0.81 10*3/uL 0.33-0.92 EOS x10^3 (test code = 711-2) 0.03-0.39 L BASO x10^3 (test code = 704-7) 0.03 10*3/uL 0.01-0.07 Lab Interpretation (test code = 11979-1) [facility] ClinicCOMP. METABOLIC PANEL (00652)2022-09-07 01:19:15* Test Item Value Reference Range Interpretation Comme nts NA (test code = 7458509609) 120 mmol/L 135-145 L K (test code = 7672749770) 4.3 mmol/L 3.5-5.0 CL (test code = 4530068215) 90 mmol/L 98-108 L CO2 TOTAL (test code = 2527256882) 21 mmol/L 23-31 L AGAP (test code = 1426041622) 9 2-16 BUN (test code = 6994501209) 10 mg/dL 7-23 GLUCOSE (test code = 8462825719) 110 mg/dL 70-110 CREATININE (test code = 5253072991) 1.22 mg/dL 0.50-1.04 H TOTAL BILI (test code = 0017626813) 0.9 mg/dL 0.1-1.1 CALCIUM (test code = 0981897668) 8.7 mg/dL 8.6-10.6 T PROTEIN (test code = 8381963913) 6.1 g/dL 6.3-8.2 L ALBUMIN (test code = 7807222778) 3.7 g/dL 3.5-5.0 ALK PHOS (test code = 4533056945) 77 U/L 34-122 ALTv (test code = 1742-6) 55 U/L 5-35 H AST(SGOT) (test code = 9536828136) 70 U/L 13-40 H eGFR (test code = 2521171236) 42.1 mL/min/1.73m2 KRISTINA (test code = KRISTINA) Association of Glomerular Filtration Rate (GFR) and Staging of Kidney Disease* + --+ --+ ------+| GFR (mL/min/1.73 m2) ?| With Kidney Damage ?| ?Without Kidney Damage+ --------+ --------+ +| ?>90 ?| ?Stage one ?| ? Normal ?+ ---+ ---+ -------+| ?60-89 ?| ?Stage two ?| ? Decreased GFR ? + --+ --+ ------+| ?30-59 ?| ?Stage three ?| ? Stage three ? + --+ --+ ------+| ?15-29 ?| ?Stage four ? | ? Stage four ?+ ---+ ---+ -------+| ?<15 (or dialysis) ? ?| ?Stage five ? | ? Stage five ?+ ---+ ---+ -------+ *Each stage assumes the associated GFR level has been in effect for at least three months. ?Stages 1 to 5, with or without kidney disease, indicate chronic kidney disease. Notes: Determination of stages one and two (with eGFR >59mL/min/1.73 m2) requires estimation of kidney damage for at least three months as defined by structural or functional abnormalities of the kidney, manifested by either:Pathological abnormalities or Markers of kidney damage (including abnormalities in the composition of the blood or urine or abnormalities in imaging tests). Lab Interpretation (test code = 87216-1) [facility]normal [facility] ClinicACTIVATED PARTIAL THRMPLAS [id number] 01:11:09* Test Item Value Reference Range Interpretation Comme nts APTT Patient (test code = 3173-2) 36 See_Comment [Automated message] The system which generated this result transmitted reference range: 23 - 38 Seconds. The reference range was not used to interpret this result as normal/abnormal. KRISTINA (test code = KRISTINA) The [facility] patient population mean normal value for aPTT is 30 seconds. Lab Interpretation (test code = 10390-2) Normal [facility] ClinicProthrombin Time / [id number] 01:09:09* Test Item Value Reference Range Interpretation Comme nts PROTIME PATIENT (test code = 5964-2) 19.7 See_Comment H [Automated messa ge] The system which generated this result transmitted reference range: 12.0 - 14.7 Seconds. The reference range was not used to interpret this result as normal/abnormal. INR (test code = 6301-6) 1.7 Normal INR <1.1; Warfarin Therapeutic range 2.0 to 3.0 or 2.5 to 3.5, depending upon the indications. Lab Interpretation (test code = 54310-2) [facility] ClinicCBC WITH [id number] 00:59:29* Test Item Value Reference Range Interpretation Comme nts WBC (test code = 6690-2) 8.35 See_Comment [Automated messa ge] The system which generated this result transmitted reference range: 4.30 - 11.10 10*3/?L. The reference range was not used to interpret this result as normal/abnormal. RBC (test code = 789-8) 3.42 See_Comment L [Automated messa ge] The system which generated this result transmitted reference range: 3.93 - 5.25 10*6/?L. The reference range was not used to interpret this result as normal/abnormal. HGB (test code = 718-7) 11.5 g/dL 11.6-15.0 L HCT (test code = 4544-3) 31.9 % 35.7-45.2 L MCV (test code = 787-2) 93.3 fL 80.6-95.5 MCH (test code = 785-6) 33.6 pg 25.9-32.8 H MCHC (test code = 786-4) 36.1 g/dL 31.6-35.1 H RDW-SD (test code = 14848-0) 38.3 fL 39.0-49.9 L RDW-CV (test code = 788-0) 11.2 % 12.0-15.5 L PLT (test code = 777-3) 246 See_Comment [Automated messa ge] The system which generated this result transmitted reference range: 166 - 358 10*3/?L. The reference range was not used to interpret this result as normal/abnormal. MPV (test code = 75971-7) 8.5 fL 9.5-12.9 L NRBC/100 WBC (test code = 9323152188) 0.0 See_Comment [Automated me ssage] The system which generated this result transmitted reference range: 0.0 - 10.0 /100 WBCs. The reference range was not used to interpret this result as normal/abnormal. NRBC x10^3 (test code = 9411978190) See_Comment [Automated messa ge] The system which generated this result transmitted reference range: 10*3/?L. The reference range was not used to interpret this result as normal/abnormal. GRAN MAT (NEUT) % (test code = 770-8) 63.3 % IMM GRAN % (test code = 2169722424) 1.00 % LYMPH % (test code = 736-9) 25.0 % MONO % (test code = 5905-5) 9.7 % EOS % (test code = 713-8) 0.8 % BASO % (test code = 706-2) 0.2 % GRAN MAT x10^3(ANC) (test code = 6027266208) 5.28 10*3/uL 1.88-7.09 IMM GRAN x10^3 (test code = 0729775937) 0.08 10*3/uL 0.00-0.06 H LYMPH x10^3 (test code = 731-0) 2.09 10*3/uL 1.32-3.29 MONO x10^3 (test code = 742-7) 0.81 10*3/uL 0.33-0.92 EOS x10^3 (test code = 711-2) 0.07 10*3/uL 0.03-0.39 BASO x10^3 (test code = 704-7) 0.01-0.07 Lab Interpretation (test code = 47463-9) [facility] Clinic[facility]URG2019-[facility] 16:31:00 RUN DATE: 08/30/18 [facility] - LAB *LIVE* PAGE 1 RUN TIME: 1632 Specimen Inquiry RUN USER: INTERFACE PATIENT: MARIBELL GHOTRA LOC: [facility]ilian[facility]ase[facility]ANGU U #: [id number] AGE/SX: 78/F ROOM: RE08/29/18REG DR: Rajni Smith : 38 BED: DIS: STATUS: [facility] [place] TLOC: SPEC #: [id number] RECD: 08/29/18 STATUS: TEODORA REQ #: [id number] ISADORA: 08/29/181299 [facility] DR: Rajni Smith MD ENTERED: 08/29/18 SP TYPE: SURG OTHR DR: Ally Ritter MD ORDERED: SURG PATH LVL 07/09 COPIES TO: Rajni Smith MD [address] [place] [id number] Ally Ritter MD 2019 [facility] [address] [place] [address] HISTOLOGY: TISSUE ID BLK PCS RYAN LEV PROCEDURE DISPOSITION ____ ___ ___ ___ ENDOMETRIUM, NO A 1 ENDOMETRIUM, NO B 1 PROCEDURES: SURG PATH LVL 4 (08/29/18-194) TISSUES: A. ENDOMETRIUM, NOS - ENDOMETRIAL POLYP B. ENDOMETRIUM, NOS - ENDOMETRIAL CURRETING CLINICAL HISTORY POST MENOPAUSAL BLEEDING -N95.0 CPT CODES CPT CODE(S): 02884A4 , , , , , , FINAL DIAGNOSIS A. Uterus, endometrium, polypectomy: BENIGN ENDOCERVICAL POLYP WITH NABOTHIAN CYSTS B. Uterus, e ndometrium, curettage: BENIGN, HIGHLY FRAGMENTED SQUAMOUS ECTOCERVIX, GLANDULAR ENDOCERVIX, AND ENDOMETRIAL GLANDS CONTINUED ON NEXT PAGE RUN DATE: 08/30/18 [facility] - LAB *LIVE* PAGE 2 RUN TIME: 1632 Specimen Inquiry RUN USER: INTERFACE SPEC #: [facility]:[id number] PATIENT: MARIBELL GHOTRA #[id number] (C ontinued) GROSS DESCRIPTION A. Endometrial polyp. Received in formalin is a reyna polypoid tissue fragment, 1.0 x 0.8 x 0.3 cm. The specimen is trisected and reveals dense reyna soft tissue. The entire specimen submitted as A. B. Endometrial curettings. Received in formalin are fragments of brown soft tissue admixed with dark brown blood clots and hemorrhagic mucoid material, 0.6 x 0.5 x 0.2 cm in aggregate. The entire specimen submitted as B. ba/nr Grossing performed at [facility] Pathology, [address] [place] [address], [address], [place] [address]. Breast Surgeon: Mau Edwards M.D. MICROSCOPIC DESCRIPTION A. Endometrial polyp. Sections demonstrate a polypoid segment of tissue consisting of endocervical mucosa with nabothian cysts. Edematous stroma is also identified. No endometrial tissue is present. No malignant features are seen. B. Endometrial curettings. Sections demonstrate fragments of endocervical glands and squamous ectocervix. Scant fragments of fragmented endometrial glands are alsoidentified. Prominent hemorrhage is seen. The endometrial gland tissue is insufficient for endometrial dating. No evidence of hyperplasia or atypia is seen. Signed SIGNATURE ON FILE Stevie Alexander Ning 08/30/18 1631 END OF REPORT BASIC METABOLIC [id number] 11:29:00* Test Item Value Reference Range Interpretation Comme nts SODIUM (test code = NA) 134 mmol/L 134-147 N POTASSIUM (test code = K) 4.5 mmol/L 3.4-5.0 N CHLORIDE (test code = CL) 99 mmol/L 100-108 L CARBON DIOXIDE (test code = CO2) 27 mmol/L 21-32 N ANION GAP (test code = GAP) 8.0 GAP calc 4.0-15.0 N GLUCOSE (test code = GLU) 106 MG/DL 70-110 N BLOOD UREA NITROGEN (test co de = BUN) 11 MG/DL 7-18 N GLOMERULAR FILTRATION RATE ( test code = GFR) 46 estGFR >60 L CREATININE (test code = CREAT) 1.2 MG/DL 0.6-1.0 H CALCIUM (test code = CA) 9.5 MG/DL 8.5-10.1 N CBC W/AUTO [id number] 11:27:00* Test Item Value Reference Range Interpretation Comme nts WHITE BLOOD CELL (test code = WBC) 8.0 K/mm3 3.5-11.0 N RED BLOOD CELL (test code = RBC) 4.12 M/mm3 4.70-6.10 L HEMOGLOBIN (test code = HGB) 13.2 G/DL 10.4-14.9 N HEMATOCRIT (test code = HCT) 38.3 % 31.5-44.1 N MEAN CELL VOLUME (test code = MCV) 93.0 Fl 84.5-98.6 N MEAN CELL HGB (test code = MCH) 32.0 pg 27.0-34.2 N MEAN CELL HGB CONCETRATION ( test code = MCHC) 34.5 G/DL 31.5-34.0 H RED CELL DISTRIBUTION WIDTH (test code = RDW) 11.9 SD 11.5-14.5 N PLATELET COUNT (test code = PLT) 232.0 K/mm3 150-450 N MEAN PLATELET VOLUME (test c ode = MPV) 10.90 fL 7.0-10.5 H NEUTROPHIL % (test code = NT%) 52.4 % 40-76 N LYMPHOCYTE % (test code = LY%) 35.5 % 20.5-51.1 N MONOCYTE % (test code = MO%) 10.2 % 1.7-9.3 H EOSINOPHIL % (test code = EO%) 1.5 % 0.0-6.0 N BASOPHIL % (test code = BA%) 0.4 % 0.0-2.0 N NEUTROPHIL # (test code = NT#) 4.21 K/mm3 1.8-7.6 N LYMPHOCYTE # (test code = LY#) 2.9 K/mm3 0.6-3.2 N MONOCYTE # (test code = MO#) 0.8 K/mm3 0.3-1.1 N EOSINOPHIL # (test code = EO#) 0.1 K/mm3 0.0-0.4 N BASOPHIL # (test code = BA#) 0.0 K/mm3 0.0-0.1 N MANUAL DIFF REQUIRED (test c ode = MDIFF) NO DIFF/SCN CRITERIA PROTHROMBIN [id number] 11:18:00* Test Item Value Reference Range Interpretation Comme nts PT PATIENT (test code = PTP) 11.3 SECONDS 9.3-12.9 N INTERNATIONAL NORMAL RATIO (test code = INR) 0.98 INR Unit 0.8-1.2 N THROMBOPLASTIN TIME [id number] 11:18:00* Test Item Value Reference Range Interpretation Comme nts THROMBOPLASTIN TIME PARTIAL (test code = PTT) 40.4 SECONDS 26-35 H Notes Date/Time Note Provider Source 2018-11-07 00:06:00 [id number] DuUNdXIJc9A8KLAQUsgXdw6iFL7ov cmLd64P0uc1C78eIV8VsV5pESKspTy4fta0505-32-49K93:0 [id number] [address] PATIENT NAME: MARIBELL GHOTRA ADMIT DATE: 08/29/18ACCOUNT NO: [id number] ROOM NO: AGE: 78 REPORT TYPE: OPERATIVE REPORT SEX: F ADMITTING PHYSICIAN: ATTENDING PHYSICIAN: Rajni Smith MD OPERATION DATE: 08/29/2018 PREOPERATIVE DIAGNOSIS: Postmenopausal bleeding. POSTOPERATIVE DIAGNOSES: Postmenopausal bleeding and endometrial polyp. PROCEDURE PERFORMED: Hysteroscopy, polypectomy, D and C. SURGEON: Rajni Smith MD ANESTHESIA: MAC plus paracervical block. SPECIMENS: Endometrial curettings and polyp. COMPLICATIONS: No complications or drains. CONDITION: The patient's condition is stable. FINDINGS: Endometrial polyp was found in the uterine cavity. Endometrialdressed with endometrium appeared to be unremarkable. The polyp was removed in its entirety and curettings were performedsatisfactorily. INDICATIONS: The patient is a 78-year-old who presented with postmenopausalbleeding. Transvaginal ultrasound showed thickened endometrium, so plan was torule out atypia or malignancy. She has had surgical clearance and she wasconsented to go to the hospital and for the performance of the procedure underanesthesia. PROCEDURE IN DETAIL: After informed consent was verified in the preop, thepatient was taken back to the OR and placed in a supine fashion on the operatingtable. After MAC was given, she was placed in a dorsal lithotomy position. Speculum was used to expose the cervix. Anterior lip was injected with 1%lidocaine mixed with in 1:100,000 epinephrine ____ 4 and 8 o'clock position, 6mL each. Prep x2 with betadine was done. Anterior lip grasped with a singletooth tenaculum. Diagnostic hysteroscope was introduced through the cervicalcanal into the uterine cavity 30-degree lens. Normal saline was used underdirect visualization. The cavity was entered. There was an endometrial polyp,which was removed by scraping off of the tip of the scope, the entire polyp wasremoved. Then, the polyp forceps was used to retrieve the polyps and curettingswere performed with a small curette. The scope was placed to visualize and PATIENT NAME: MARIBELL GHOTRA there was complete removal of the polyp and curettings were satisfactory. Thesewere handed off for permanent pathology. Instruments were removed. Instrument,needle, and sponge counts were done were correct at the end of the case. Thepatient was recovered from anesthesia and taken to PACU in stable condition. Dictated By: Rajni Smith MD WT: OP:L.LUCERO/ZEKE/KLAUDIADD: 11/07/2018 00:06:40DT: 11/07/2018 01:36:41Conf#: [id number]/DID#: [id number] Authenticated by Rajni Smith MD On 11/26/2018 11:25:34 AM at 1125 PATIENT NAME: MARIBELL GHOTRA wwgemg1315-64-15C95:36:00L.NNJ43259732-8197CJNxqo lable for patient dstzATOFFTKSIVJSXJ2898-98-41J12:26:12 [facility] 2018-08-29 15:29:00 [id number] CJBPSS+ctftD3YEnOWIFtc/q8QKQA L1T0WQgVJi53nMEnqW3KWQc/jzrCygxY3L3674-35-41G82:2 9:00 [facility] ([facility])Post Anesthesia EvaluationREPORT#:[id number] REPORT STATUS: SignedDATE:08/29/18 TIME:1529 PATIENT: MARIBELL GHOTRA UNIT #: [id number]#: [id number] ROOM/BED:: 39 AGE: 78 SEX: F ATTEND: Rajni Smith MDADM AUTHOR: Zayra Small MD * ALL edits or amendments must be made on the electronic/computer document * Post Anesthesia Evaluation Anes. changes from pre-op evalORM Surgeries: Surgery Date and Time: 08/29/2018 1230 Primary Procedure: HYSTEROSCOPY, DILATION AND CURETTAGE, Anesthetic: general LMADate: 08/29/18Level of consciousness: patient awake, able to answer questions, participate in this eval.Vital signs:Vital Signs: Date Time Temp Pulse Resp B/P B/P Pulse O2 O2 Flow FiO2 Mean Ox Delivery Rate 08/29 1453 97.6 85 13 152/72 97 Room air 08/29 1447 97.6 78 13 150/70 98 Room air 08/29 1440 97.6 91 19 137/60 97 Room air 08/29 1430 87 18 128/58 96 Room air 08/29 1425 80 17 121/58 100 Simple 4.677344 mask 08/29 1421 Simple 4.395207 mask 08/29 1420 87 21 115/60 99 Simple 4.894653 mask 08/29 1416 97.4 89 17 106/57 99 Simple 4.471624 mask 08/29 1033 97.3 88 19 152/92 100 Room air Cardiovascular: CV system stable, vital signs stableRespiratory/Airway: respiratory system stable, maintains without supportPain: adequately controlledHydration: adequatePresence of N/V: noAnesthesia complications: noConclusions: no apparent anes. issues at 1530 RPT #: [id number] OF REPORT CLClinical mdea3808-76-02D29:29:00L.GJUQ03343954-9145DSHvymd able for patient qtnoFFDXNRSZKHKGLG0524-58-27C62:30:56 [facility] 2018-08-29 14:28:00 NKzaipxhzyg98675558K Z1C7+r39hoFPVU7ixWXLLzUHxuXju w7YziV4kewFo7XAbyqoFf7Vz76QcpLvHAb2608-89-12C30:2 8:00 [facility] ([facility])Brief Discharge Note w/Med RecREPORT#:[id number] REPORT STATUS: SignedDATE:08/29/18 TIME:1428 PATIENT: MARIBELL GHOTRA UNIT #: [id number]#: [id number] ROOM/BED:: 39 AGE: 78 SEX: F ATTEND: Rajni Smith [facility] AUTHOR: Rajni Smith MD * ALL edits or amendments must be made on the electronic/computer document * Med Rec Med RecDischarge meds:Stop taking the following medications:EDOXABAN TOSYLATE (SAVAYSA) 60 MG TABLET ORAL DAILY. Continue taking these medications:PRAVASTATIN (PRAVACHOL) 40 MG TAB 40 MILLIGRAM ORAL DAILY. LEVOTHYROXINE (LEVOTHROID) 100 MCG TAB 100 MICROGRAM ORAL DAILY. LOSARTAN/HCTZ (HYZAAR 100/25 MG) 1 TAB TAB 1 TABLET ORAL DAILY. ATENOLOL (TENORMIN) 50 MG TAB 50 MILLIGRAM ORAL DAILY. clonazePAM (KlonoPIN) 1 MG TAB 1 MILLIGRAM ORAL BEDTIME. DOXYCYCLINE HYCLATE (VIBRAMYCIN) 50 MG CAP 50 MILLIGRAM ORAL DAILY. amLODIPine (NORVASC) 2.5 MG TAB 2.5 MILLIGRAM ORAL DAILY. CHOLECALCIFEROL (VITAMIN D3) (VITAMIN D3) 5,000 UNITS TAB 5,000 UNITS ORAL DAILY. MOMETASONE FUROATE (ASMANEX 110 MCG/ACT) 30 INH INHALER 2 PUFF INHALATION RT - DAILY. as needed for ASTHMA ACETAMINOPHEN (TYLENOL) 500 MG TAB 500 MILLIGRAM ORAL EVERY 4 HOURS NEEDED. as needed for PAIN DRONEDARONE (MULTAQ) 400 MG TAB 200 MILLIGRAM ORAL TWICE DAILY. Brief Discharge Note w/Med RecPCP:PCP: Ally Ritter MD Discharge to: homeActivity: as toleratedDiet: regularPt. condition on discharge: stableAdditional instructions:restart Savaysa sunday amReturn to work/school: YesReturn to work/school date: 08/30/18Follow-up appointment(s):1 week at 1430 RPT #: [id number] OF REPORT DSDischarge ozjeqkv9685-44-84B44:28:00L.WWKA50053266-5168JADm ailable for patient udquJKJHKSYKNPASXK5507-24-10H69:30:52 [facility] 2018-08-29 14:18:00 NOjrbgqnaps32958875o oybb4Zc/HD9LoiCEPyIHfV1cNAXx9 6uGt5Nl/Fkh4OkygMdYBvbkc0Utuv6C+3p0877-57-93H82:1 8:00 [facility] ([facility])Brief Op NoteREPORT#:[id number] REPORT STATUS: SignedDATE:08/29/18 TIME:1418 PATIENT: MARIBELL GHOTRA UNIT #: [id number]#: [id number] ROOM/BED:: 39 AGE: 78 SEX: F ATTEND: [facility] AUTHOR: Rajni Smith MD * ALL edits or amendments must be made on the electronic/computer document * Op/Inv Proc Note - BriefPre-procedure diagnosis:Post menopausal bleeding Post-procedure diagnosis: same as pre procedure dx, endometrial polypProcedures performed:Hysteroscopy Polypectomy D C Primary Surgeon:Art(s): noneFindings:endometrial polypposterior wallendometrium unremarkableComplications: noneEstimated blood loss in ml's: noneSpecimens removed/altered: Polyp and EMC at 1421 RPT #: [id number] OF REPORT OPOperative dasqzg1607-39-42Y47:18:00L.UWDY47296975-6876JVTil ilable for patient kpwdMRYJJTQQTJMNNO1987-82-34Z16:21:21 HCAPM"
[2023-07-28 10:52] LABS: Absolute Basophils 0.1 K/uL (0-0.5); Absolute Lymphocytes (CBC) 1.5 K/uL (0.7-4.9); Absolute Monocytes 0.4 K/uL (0.1-1.3); Absolute Neutrophil 3.8 K/uL (1.8-8.0); Eosinophils % 0.5 % (0-4.4); Hematocrit 35.4 % (36.0-45.0); Hemoglobin 12.2 g/dL (12.0-15.0); Lymphocytes % 25.9 % (15.3-44.8); MCH 32.6 pg (27.0-35.0); MCHC 34.4 g/dL (32.0-36.0); MCV 94.8 fL (80-100); MPV 6.5 fL (7.6-11.3); Monocytes % 7.7 % (3.3-12.3); Neutrophils % 64.9 % (41.7-73.7); Nucleated Red Blood Cells % 0.1 % (0-0); Platelets 315 thou/uL (152-406); RBC Red Blood Cell Count 3.74 M/uL (3.86-4.86); Red Cell Distribution Width 12.6 % (12.1-15.2)
[2023-07-28 11:18] LABS: Albumin 3.6 g/dL (3.4-5.0); Anion Gap 9.9 mEq/L (5.0-15.0); Bilirubin Direct 0.3 mg/dL (0-0.2); Bilirubin Indirect, Calculated 0.4 mg/dL (0.2-0.8); Bilirubin Total 0.7 mg/dL (0.2-1.0); Globulin 3.6 g/dL (2.3-3.5); Magnesium 1.6 mg/dL (1.6-2.4); Potassium 3.9 mEq/L (3.5-5.1); Protein, Total 7.2 g/dL (6.4-8.2); Troponin High Sensitivity 6.6 pg/mL (<58.9)
[2023-07-28 11:19] LABS: Thyroid Stimulating Hormone 26.2 uIU/mL (0.358-3.740)
[2023-07-28 11:39] LABS: Specific Gravity 1.008 (1.005-1.030); Sqamous Epithelial <5 /HPF (None Seen); Urine Bacteria None Seen /HPF (<20); Urine Bilirubin NEGATIVE (Negative); Urine Blood Trace (Negative); Urine Clarity Clear (Clear); Urine Color Light-Yellow (Yellow); Urine Culture Reflex Order NOT NEEDED; Urine Glucose NEGATIVE (Negative); Urine Ketones NEGATIVE (Negative); Urine Micro Reflex YN NO BILL MICROSCOPIC; Urine Mucus Slight /HPF (None Seen); Urine Nitrite NEGATIVE (Negative); Urine Protein NEGATIVE (Negative); Urine RBC <5 /HPF (None Seen); Urine Urobilinogen Normal (Normal); Urine WBC <5 /HPF (<5); Urine pH 6.5 (5.0-7.0)
--- NOTE | 2023-07-28 12:28 | RAD REPORT ---
[facility]AM DES[facility] 10:45 am CLINICAL HISTORY: weakness COMPARISON: Chest Single View dated 09/26/2022; Abdomen 1 View (KUB) dated 03/22/2022 TECHNIQUE: Portable AP view of the chest. FINDINGS: Elevation of the right hemidiaphragm again seen. The lungs are clear. No pneumothorax or effusion. The cardiomediastinal contours are unremarkable. IMPRESSION: No acute cardiopulmonary process.
--- NOTE | 2023-07-28 12:49 | RAD REPORT ---
EXAM DESCRIPTION: US - Abdomen Exam Limited - 07/28/2023 11:07 am CLINICAL HISTORY: transaminitis, ruq with liver COMPARISON: Abdomen Exam Limited dated 09/26/2022 TECHNIQUE: Sonographic grayscale and color flow images of the right upper abdominal quadrant were o btained. FINDINGS: The gallbladder demonstrates no gallstones. No pericholecystic fluid or gallbladder wall t hickening. Negative sonographic Shea's sign. The common bile duct is normal measuring 4 mm. The liver demonstrates mild diffuse parenchymal hyperechogenicity suggesting steatosis. No findings o f intrahepatic biliary dilatation. IMPRESSION: No sonographic abnormalities of the gallbladder. Mild diffuse hepatic parenchymal hyperechogenicity suggesting steatosis.
--- NOTE | 2023-07-28 13:16 | EDPHYS ---
Physician Documentation [facility] Name: Dinora Lea Age: 83 yrs Sex: Female : 1940 Arrival Date: 07/28/2023 Time: 10:10 Bed 19 Private MD: ED Physician Vivek Navarro HPI: 07/27 11:38 This 83 yrs old Female presents to ER via Wheelchair with complaints of sent by rt pcp:abnormal labs. 11:38 Patient presents to the ED at the request of primary care's office for abnormal labs. rt Patient had finished a 10-day course of Bactrim for UTI. Does report loose stools, nausea with 1 episode of vomiting. She reports of worsening generalized weakness. Patient been given couple rounds of IV fluids at the office. Continues to decline. Reports that sodium is low, transaminases were elevated, creatinine was elevated. Denies other acute complaints, symptoms are moderate in severity, no other aggravating or alleviating factors.. Historical: - Allergies: 10:18 Pradaxa; iw 10:18 Xarelto; iw - Home Meds: 10:28 furosemide 20 mg oral tablet 1 tab for edema [Active]; Clonazepam Oral [Active]; rs5 amiodarone 100 mg Oral tablet once [Active]; Savaysa 60 mg oral tablet 1 tab once [Active]; pravastatin 40 mg oral tablet 1 tab once [Active]; amlodipine 2.5 mg tablet 1 tab once [Active]; losartan 100 mg oral tablet 1 tab once [Active]; lisinopril 2.5 mg Oral tablet 1 tab once [Active]; - PMHx: 10:18 Hyperlipidemia; Hypertension; Hypothyroidism; Atrial Fib; Asthma; ADD/ADHD; iw - Immunization history:: Adult Immunizations unknown. - Infectious Disease History:: Denies. - Family history:: not pertinent. - Social history:: Smoking status: Patient denies any tobacco usage or history of. ROS: 11:38 Cardiovascular: Negative for chest pain, palpitations, and edema, Respiratory: Negative rt for shortness of breath, cough, wheezing, and pleuritic chest pain, MS/Extremity: Negative for injury and deformity, Skin: Negative for injury, rash, and discoloration, 11:38 Constitutional: Positive for fatigue, malaise, 11:38 Abdomen/GI: Positive for vomiting, diarrhea, 11:38 Neuro: Positive for weakness, Negative for loss of consciousness, Exam: 11:38 Constitutional: This is a well developed, well nourished patient who is awake, alert, rt and in no acute distress. Head/Face: Normocephalic, atraumatic. Chest/axilla: Normal chest wall appearance and motion. Nontender with no deformity. No lesions are appreciated. Cardiovascular: Regular rate and rhythm with a normal S1 and S2. No gallops, murmurs, or rubs. Normal PMI, no JVD. No pulse deficits. Respiratory: Lungs have equal breath sounds bilaterally, clear to auscultation and percussion. No rales, rhonchi or wheezes noted. No increased work of breathing, no retractions or nasal flaring. Abdomen/GI: Soft, non-tender, with normal bowel sounds. No distension or tympany. No guarding or rebound. No evidence of tenderness throughout. Skin: Warm, dry with normal turgor. Normal color with no rashes, no lesions, and no evidence of cellulitis. MS/ Extremity: Pulses equal, no cyanosis. Neurovascular intact. Full, normal range of motion. Neuro: Awake and alert, GCS 15, oriented to person, place, time, and situation. Cranial nerves II-XII grossly intact. Motor strength 5/5 in all extremities. Sensory grossly intact. Cerebellar exam normal. Normal gait. 11:38 ENT: Dry mucous membrane. 11:38 ECG was reviewed by the Attending Physician. Vital Signs: 10:15 BP 157 / 65; Pulse 72; Resp 16; Temp 97.8; Pulse Ox 98% on R/A; Weight 67.59 kg; Height iw 5 ft. 3 in. ; 12:12 BP 151 / 52; Pulse 55; Resp 15; Pulse Ox 100% on R/A; tl4 13:00 BP 161 / 62; Pulse 59; Resp 19; Pulse Ox 100% on R/A; tl4 14:00 BP 164 / 53; Pulse 56; Resp 15; Pulse Ox 100% on R/A; tl4 15:00 BP 155 / 55; Pulse 55; Resp 15; Temp 98.2(O); Pulse Ox 100% on R/A; Pain 0/10; tl4 10:15 Body Mass Index 26.39 (67.59 kg, 160.02 cm) iw 15:00 Pain Scale: Adult tl4 MDM: 10:21 Patient medically screened. rt 13:16 Differential Diagnosis Electrolyte disturbance, dehydration. Data reviewed: vital rt signs, nurses notes, lab test result(s), EKG, radiologic studies. Consideration of Admission/Observation Patient was admitted/placed on observation. Management of patient was discussed with the following: Hospitalist: Agrees to admit. I considered the following discharge prescriptions or medication management in the emergency department Medications were administered in the Emergency Department. See MAR. Independent interpretation of the following test(s) in the Emergency Department X-Ray: My interpretation is No consolidation seen on interpretation of x-ray images. Counseling: I had a detailed discussion with the patient and/or guardian regarding the historical points, exam findings, and any diagnostic results supporting the discharge/admit diagnosis, lab results, radiology results, the need for further work-up and treatment in the hospital. Response to treatment: the patient's symptoms have mildly improved after treatment. 07/27 10:32 Order name: Basic Metabolic Panel; Complete Time: 11:42 rt 07/27 10:32 Order name: CBC with Diff; Complete Time: 11:34 rt 07/27 10:32 Order name: LFT's; Complete Time: 11:42 rt 07/27 10:32 Order name: Magnesium; Complete Time: 11:42 rt 07/27 10:32 Order name: Troponin HS; Complete Time: 11:42 rt 07/27 10:32 Order name: UAM; Complete Time: 11:42 rt 07/27 10:32 Order name: TSH; Complete Time: 11:42 rt 07/27 11:22 Order name: T4 Free; Complete Time: 11:42 EDMS 07/27 11:45 Order name: CPK; Complete Time: 12:51 rt 07/27 11:45 Order name: Hepatitis Panel rt 07/27 14:37 Order name: UR CREAT EDMS 07/27 14:37 Order name: UR SODIUM EDMS 07/27 14:37 Order name: Basic Metabolic Panel EDMS 07/27 14:37 Order name: Basic Metabolic Panel EDMS 07/27 14:37 Order name: Basic Metabolic Panel EDMS 07/27 14:37 Order name: Basic Metabolic Panel EDMS 07/27 14:37 Order name: CBC with Automated Diff EDMS 07/27 14:37 Order name: CBC with Automated Diff EDMS 07/27 14:37 Order name: Comprehensive Metabolic Panel EDMS 07/27 14:37 Order name: Comprehensive Metabolic Panel EDMS 07/27 10:32 Order name: XRAY Chest (1 view); Complete Time: 12:51 rt 07/27 10:32 Order name: US Abdomen Limited; Complete Time: 12:51 rt 07/27 10:32 Order name: EKG; Complete Time: 10:33 rt 07/27 10:32 Order name: Cardiac monitoring; Complete Time: 10:48 rt 07/27 10:32 Order name: EKG - Nurse/Tech; Complete Time: 12:30 rt 07/27 10:32 Order name: IV Saline Lock; Complete Time: 10:48 rt 07/27 10:32 Order name: Labs collected and sent; Complete Time: 10:48 rt 07/27 10:32 Order name: O2 Per Protocol; Complete Time: 10:49 rt 07/27 10:32 Order name: O2 Sat Monitoring; Complete Time: 10:49 rt EC:38 Rate is 66 beats/min. Rhythm is regular, 1st Degree Block with No ectopy. QRS [place] is rt Normal. HI interval is normal. QRS interval is normal. QT interval is normal. No Q waves. No ST changes noted. Interpreted by me. Administered Medications: No medications were administered Disposition Summary: 07/28/23 13:16 Hospitalization Ordered Notes: Hospitalization Status: Inpatient Admission rt Provider: Yessica Patricio [facility] rt Condition: Stable rt Problem: an ongoing problem rt Symptoms: are unchanged rt Bed/Room Type: Standard rt Room Assignment: 407(07/28/23 15:49) Diagnosis - Generalized weakness rt - Hyponatremia rt - Dehydration rt Forms: - Medication Reconciliation Form rt - SBAR form rt - Leadership Thank You Letter rt Signatures: Dispatcher [employer] [facility] Vikki Fraire, IRINEO CABELLO iw Mona Montejo RN RN Vivek Navarro MD MD rt Carl Hager RN RN rs5 Devyn Rasmussen RN RN tl4 Corrections: (The following items were deleted from the chart) 11:46 11:46 CREATINE PHOSPHOKINASE+C.LAB.BRZ ordered. [facility] 11:46 11:46 Acute Hepatitis Panel+SC.LAB.BRZ ordered. EDMS EDMS 15:49 13:16 rt hb
--- NOTE | 2023-07-28 13:16 | ER ---
Nurse's Notes [facility] Name: Dinora Lea Age: 83 yrs Sex: Female : 1940 Arrival Date: 07/28/2023 Time: 10:10 Bed 19 Private MD: Diagnosis: Generalized weakness;Hyponatremia;Dehydration Presentation: 07/27 10:15 Chief complaint: Patient's son or daughter states: was sent by her PCP for evaluation iw in ER, has had a UTI for 2 weeks , on Bactrim for 10 days, had Rocephin in office Sun, she had IV fluids twice sun and sun, she has still been feeling weak , lab levels are abnormal , creatinine, liver enzyme, sodium. Coronavirus screen: At this time, the client does not indicate any symptoms associated with coronavirus-19. Ebola Screen: Patient negative for fever greater than or equal to 101.5 degrees Fahrenheit, and additional compatible Ebola Virus Disease symptoms Patient denies exposure to infectious person. Patient denies travel to an Ebola-affected area in the 21 days before illness onset. No symptoms or risks identified at this time. Initial Sepsis Screen: Does the patient meet any 2 criteria? No. Patient's initial sepsis screen is negative. Does the patient have a suspected source of infection? No. Patient's initial sepsis screen is negative. Risk Assessment: Do you want to hurt yourself or someone else? Patient reports no desire to harm self or others. Onset of symptoms was July 14, 2023. 10:15 Method Of Arrival: Wheelchair iw 10:15 Acuity: GINGER 3 iw Historical: - Allergies: 10:18 Pradaxa; iw 10:18 Xarelto; iw - Home Meds: 10:28 furosemide 20 mg oral tablet 1 tab for edema [Active]; Clonazepam Oral [Active]; rs5 amiodarone 100 mg Oral tablet once [Active]; Savaysa 60 mg oral tablet 1 tab once [Active]; pravastatin 40 mg oral tablet 1 tab once [Active]; amlodipine 2.5 mg tablet 1 tab once [Active]; losartan 100 mg oral tablet 1 tab once [Active]; lisinopril 2.5 mg Oral tablet 1 tab once [Active]; - PMHx: 10:18 Hyperlipidemia; Hypertension; Hypothyroidism; Atrial Fib; Asthma; ADD/ADHD; iw - Immunization history:: Adult Immunizations unknown. - Infectious Disease History:: Denies. - Family history:: not pertinent. - Social history:: Smoking status: Patient denies any tobacco usage or history of. Screenin:20 [facility] ED Fall Risk Assessment (Adult) History of falling in the last 3 months, rs5 including since admission No falls in past 3 months (0 pts) Confusion or Disorientation No (0 pts) Intoxicated or Sedated No (0 pts) Impaired Gait No (0 pts) Mobility Assist Device Used No (0 pt) Altered Elimination No (0 pt) Score/Fall Risk Level 0 - 2 = Low Risk Oriented to surroundings, Maintained a safe environment. Abuse screen: Denies threats or abuse. Nutritional screening: No deficits noted. Tuberculosis screening: No symptoms or risk factors identified. Assessment: 10:20 General: Appears in no apparent distress. uncomfortable, Behavior is calm, cooperative. rs5 Pain: Denies pain. Neuro: Level of Consciousness is awake, alert, obeys commands, Oriented to person, place, time, situation. Cardiovascular: Patient's skin is warm and dry. Rhythm is regular. Respiratory: Airway is patent Respiratory effort is even, unlabored, Respiratory pattern is regular, symmetrical. GI: Abdomen is round non-distended, Abd is soft and non tender X 4 quads. pt states "my stomach feels a little uncomfortable". GI: Patient currently denies nausea. : No signs and/or symptoms were reported regarding the genitourinary system. EENT: No signs and/or symptoms were reported regarding the EENT system. Derm: Skin is intact, Skin is pink, warm \\T\\ dry. Musculoskeletal: Range of motion: intact in all extremities, Reports generalized weakness. 12:12 Reassessment: Patient and/or family updated on plan of care and expected duration. Pain tl4 level reassessed. Patient is alert, oriented x 3, equal unlabored respirations, skin warm/dry/pink. 13:22 Reassessment: Patient and/or family updated on plan of care and expected duration. Pain tl4 level reassessed. Patient is alert, oriented x 3, equal unlabored respirations, skin warm/dry/pink. Pt denies any needs at this time Patient states symptoms have not improved. 14:08 Reassessment: No changes from previously documented assessment. Patient and/or family tl4 updated on plan of care and expected duration. Pain level reassessed. Patient is alert, oriented x 3, equal unlabored respirations, skin warm/dry/pink. 15:15 Reassessment: No changes from previously documented assessment. Patient and/or family tl4 updated on plan of care and expected duration. Pain level reassessed. Patient is alert, oriented x 3, equal unlabored respirations, skin warm/dry/pink. 16:24 Reassessment: No changes from previously documented assessment. Patient and/or family tl4 updated on plan of care and expected duration. Pain level reassessed. Patient is alert, oriented x 3, equal unlabored respirations, skin warm/dry/pink. 16:47 Reassessment: Pt had prescribed maintenance NS at 100 mL/hr infusing in right tl4 antecubital with dial flow. Fluids were inadvertently left behind by transporter. Vital Signs: 10:15 BP 157 / 65; Pulse 72; Resp 16; Temp 97.8; Pulse Ox 98% on R/A; Weight 67.59 kg; Height iw 5 ft. 3 in. ; 12:12 BP 151 / 52; Pulse 55; Resp 15; Pulse Ox 100% on R/A; tl4 13:00 BP 161 / 62; Pulse 59; Resp 19; Pulse Ox 100% on R/A; tl4 14:00 BP 164 / 53; Pulse 56; Resp 15; Pulse Ox 100% on R/A; tl4 15:00 BP 155 / 55; Pulse 55; Resp 15; Temp 98.2(O); Pulse Ox 100% on R/A; Pain 0/10; tl4 10:15 Body Mass Index 26.39 (67.59 kg, 160.02 cm) iw 15:00 Pain Scale: Adult tl4 Vitals: 12:12 Cardiac Rhythm Assessment Regular Sinus rhythm W/1st degree HB. tl4 ED Course: 10:12 Patient arrived in ED. ra3 10:16 Vivek Navarro MD is Attending Physician. rt 10:18 Triage completed. iw 10:18 Carl Hager, IRINEO is Primary Nurse. rs5 10:20 Arm band placed on right wrist. rs5 10:47 XRAY Chest (1 view) In Process Unspecified. EDMS 11:09 US Abdomen Limited In Process Unspecified. EDMS 12:11 No provider procedures requiring assistance completed. rs5 13:15 Yessica Patricio MD is Hospitalizing Provider. rt 13:51 Patient has correct armband on for positive identification. Placed in gown. Bed in low tl4 position. Call light in reach. Side rails up X2. Adult w/ patient. Provided Education on: ED process. Client placed on continuous cardiac and pulse oximetry monitoring. NIBP monitoring applied. quality assurance monitor chassis on. Door closed. Noise minimized. Lights dimmed. Moved to private room. Warm blanket given. Diet: Patient given ice chips. 14:02 Inserted saline lock: 22 gauge in right antecubital area, using aseptic technique. tl4 16:25 Warm blanket given. PO fluids given. tl4 16:25 Patient admitted, IV remains in place. tl4 Administered Medications: No medications were administered Medication: 13:51 VIS not applicable for this client. tl4 Outcome: 13:16 Decision to Hospitalize by Provider. rt 16:26 Condition: stable tl4 16:26 Instructed on the need for admit, 16:48 Admitted to Tele accompanied by tech, family with patient, via stretcher, room 407, tl4 with chart, 16:48 Patient left the ED. tl4 Signatures: Dispatcher [employer] EDMS Vikki Fraire, IRINEO CABELLO iw Vivek Navarro MD MD rt Carl Hager, RN RN rs5 Devyn Rasmussen RN RN tl4 Marlyn Obrien ra3
[2023-07-28] MEDS ORDERED: ACETAMINOPHEN 500 MG TAB PO PRN (14:32)
[2023-07-28] MEDS ORDERED: MORPHINE 2 MG/ML SYR IV PRN (14:32)
[2023-07-28] MEDS ORDERED: ONDANSETRON 4 MG/2 ML VIAL IV PRN (14:32)
--- NOTE | 2023-07-28 14:36 | P.HP ---
Certification for Inpatient Patient admitted to: Observation With expected LOS: <2 Midnights Patient will require the following post-hospital care: None Practitioner: I am a practitioner with admitting privileges, knowledge of patient current condition, hospital course, and medical plan of care. Services: Services provided to patient in accordance with Admission requirements found in Title 42 Section 412.3 of the Code of Federal Regulations Patient History Date of Service: 07/28/23 Reason for admission: Generalized weakness; hyponatremia History of Present Illness: Patient is an 83-year-old female who has been in her normal state of health up until a couple of weeks ago. She has a history of hypertension, hypothyroidism, atrial fibrillation, and prior history of hyponatremia who comes into the emergency room because of generalized weakness. Patient had wanted to see her PCP about a week ago and patient was found to have urinary tract infection as well as an upper respiratory infection. Patient was started on antibiotics- Bactrim. Patient was not really feeling well so they went back into the PCP. Patient was given saline in the doctor's office as well as IV antibiotics. However, she still has not been improving so decided to bring her into the emergency room. In the emergency room patient was found to be hyponatremic with a sodium of 124 and patient had elevated ALT and AST. Patient denies any abdominal pain. She does have some minimal upper and lower extremity edema. Patient also has polydipsia and patient has been drinking a lot of water. Her day-to-day routine consist of waking up in going into her room, but she does not really do a lot of her own ADLs. Her family members help her with her day-to-day routine. At this time, patient will be admitted to the hospital for observation. Allergies dabigatran etexilate [From Pradaxa] Adverse Reaction (Verified 09/26/22 20:42) Itching rivaroxaban [From Xarelto] Adverse Reaction (Verified 09/26/22 20:42) Rash Home Medications: Amiodarone HCl [Cordarone*] 200 mg PO DAILY 09/26/22 Amlodipine [Norvasc*] 2.5 mg PO DAILY 09/26/22 Edoxaban Tosylate [Savaysa] 60 mg PO DAILY 09/26/22 Furosemide [Lasix*] 20 mg PO DAILY 09/26/22 Levothyroxine Sodium 100 mcg PO DAILY 09/26/22 Lisinopril [Zestril] 2.5 mg PO DAILY 09/26/22 Losartan Potassium 50 mg PO DAILY 09/26/22 Pravastatin [Pravachol*] 40 mg PO DAILY 09/26/22 clonazePAM [Clonazepam] 1 mg PO BEDTIME 09/26/22 Cholestyramine/Asp [Questran Light*] 2 gm PO DAILY WITH BREAKFAST #7 packet 10/02/22 Lactose-Reduced Food [Boost Men] 237 ml PO BID #60 bottle 10/02/22 Vancomycin Oral Soln [Vancocin HCl*] 5 ml PO Q8H #150 ml 10/02/22 - Past Medical/Surgical History -: Atrial fibrillation -: Hypertension -: Hyperlipidemia -: Hypothyroidism -: Back surgery -: Breast reduction Psychosocial/ Personal History: Patient is retired, lives at home with her daughter - Family History Father Family History: Reviewed- Non-Contributory - Social History Smoking Status: Former smoker Alcohol use: No CD- Drugs: No Caffeine use: No Review of Systems 10-point ROS is otherwise unremarkable Physical Examination - Vital Signs Temperature: 98 F (reviewed) - Physical Exam General: Alert, In no apparent distress, Oriented x3 HEENT: Atraumatic, PERRLA, Mucous membr. moist/pink, EOMI, Sclerae nonicteric Neck: Supple, 2+ carotid pulse no bruit, No LAD, Without JVD or thyroid abnormality Respiratory: Clear to auscultation bilaterally, Normal air movement Cardiovascular: Regular rate/rhythm, Normal S1 S2, No murmurs Gastrointestinal: Normal bowel sounds, Soft and benign, Non-distended, No tenderness Musculoskeletal: No clubbing, No swelling, No tenderness Integumentary: No rashes Neurological: Normal speech, Normal tone, Sensation intact, Cranial nerves 3-12 intact, Normal affect, Abnormal gait, Abnormal strength Lymphatics: No axilla or inguinal lymphadenopathy - Studies Laboratory Data (last 24 hrs) 07/28/23 07/28/23 10:44 10:44 WBC 5.90 Hgb 12.2 Hct 35.4 L Plt Count 315 Sodium 124 L Potassium 3.9 BUN 9 Creatinine 1.44 H Glucose 108 H Magnesium 1.6 Total Bilirubin 0.7 AST 255 H ALT 302 H Alkaline Phosphatase 96 Assessment & Plan - Problems (Diagnosis) (1) Generalized weakness Current Visit: Yes Status: Acute (2) Hyponatremia Current Visit: Yes Status: Acute (3) HTN (hypertension) Current Visit: Yes Status: Acute (4) Hypothyroid Current Visit: Yes Status: Acute (5) Atrial fibrillation Current Visit: Yes Status: Acute (6) Elevated ALT measurement Current Visit: Yes Status: Acute (7) Elevated AST (SGOT) Current Visit: Yes Status: Acute - Plan Plan: 1. Patient with generalized weakness with secondary hyponatremia; continue with saline and will continue with physical therapy. Check FeNa. Continue with saline at 70cc/hr and repeat basic metabolic profile in 6 hours. Correct about 10mEq/24hrs. 2. Patient with elevated ALT and AST; check hepatitis profile. Monitor LFTs. Patient is on amiodarone at home and sometimes this can cause elevation of the liver enzymes. Monitor Tylenol intake. 3. History of atrial fibrillation; continue with amiodarone and anticoagulation 4. History of hypertension; continue with antidepressants 5. History of dyslipidemia; adjust statin dosing 6. GI DVT prophylaxis Discharge Plan: Home Plan to discharge in: 24 Hours - Advance Directives Does patient have a Living Will: No Does patient have a Durable POA for Healthcare: No - Code Status/Comfort Care Code Status Assessed: Yes Code Status: Full Code Critical Care: No Time Spent Managing PTS Care (In Minutes): 45
[2023-07-28] MEDS: NA CHLORIDE 0.9% 1,000 ML IV SCH (15:00)
[2023-07-28] MEDS ORDERED: NA CHLORIDE 0.9% 1,000 ML ONE (16:14)
[2023-07-28 17:42] LABS: Hepatitis B Core IgM Nonreactive (Nonreactive); Hepatitis B surface AG Interp. Nonreactive (Nonreactive); Hepatitis C Virus Ab Nonreactive (Nonreactive)
[2023-07-28 17:43] LABS: HBsAG Nonreactive Report Report
[2023-07-28 17:58] VITALS: BMI 26.4
[2023-07-28] MEDS: HYDRALAZINE HCL 20 MG/ML VIAL IV PRN (18:45)
[2023-07-28 19:08] LABS: Anion Gap 12.9 mEq/L (5.0-15.0)
[2023-07-28 19:09] LABS: Potassium 3.9 mEq/L (3.5-5.1)
[2023-07-28] MEDS: LOSARTAN POTASSIUM 50 MG TABLET PO SCH (20:37)
[2023-07-28] MEDS ORDERED: BUDESONIDE, MICRONIZED 3 MG CAP PO PRN (20:57)
[2023-07-28] MEDS: clonazePAM 1 MG TAB PO SCH (21:15)
[2023-07-29 01:09] LABS: Anion Gap 10.1 mEq/L (5.0-15.0)
[2023-07-29 01:12] LABS: Potassium 4.1 mEq/L (3.5-5.1)
[2023-07-29 05:50] LABS: Hematocrit 31.7 % (36.0-45.0); Hemoglobin 10.7 g/dL (12.0-15.0); MCH 32.5 pg (27.0-35.0); MCHC 33.9 g/dL (32.0-36.0); MCV 95.8 fL (80-100); Platelets 253 thou/uL (152-406); RBC Red Blood Cell Count 3.31 M/uL (3.86-4.86)
[2023-07-29 05:51] LABS: Absolute Basophils 0.1 K/uL (0-0.5); Absolute Lymphocytes (CBC) 1.2 K/uL (0.7-4.9); Absolute Monocytes 0.5 K/uL (0.1-1.3); Absolute Neutrophil 3.3 K/uL (1.8-8.0); Basophils % 1.1 % (0-1.3); Eosinophils % 0.9 % (0-4.4); Lymphocytes % 23.1 % (15.3-44.8); MPV 6.9 fL (7.6-11.3); Monocytes % 10.2 % (3.3-12.3); Neutrophils % 64.7 % (41.7-73.7); Red Cell Distribution Width 12.3 % (12.1-15.2)
[2023-07-29 06:07] LABS: Albumin 3.1 g/dL (3.4-5.0); Albumin/Globulin Ratio 1.1 (1.1-1.8); Anion Gap 9.1 mEq/L (5.0-15.0); Bilirubin Total 0.7 mg/dL (0.2-1.0); Globulin 2.9 g/dL (2.3-3.5); Potassium 4.1 mEq/L (3.5-5.1)
[2023-07-29] MEDS: LEVOTHYROXINE SOD 0.025 MG TAB PO SCH (07:25)
--- NOTE | 2023-07-29 08:22 | P.PN ---
Subjective Date of Service: 07/29/23 Chief Complaint: Generalized weakness; hyponatremia Patient is an 83-year-old female who has been in her normal state of health up until a couple of weeks ago. She has a history of hypertension, hypothyroidism, atrial fibrillation, and prior history of hyponatremia who comes into the emergency room because of generalized weakness. Patient had wanted to see her PCP about a week ago and patient was found to have urinary tract infection as well as an upper respiratory infection. Patient was started on antibiotics- Bactrim. sodium of 124 and patient had elevated ALT and AST. - Physical Exam General: Alert, In no apparent distress, Oriented x3 HEENT: Atraumatic, PERRLA, Mucous membr. moist/pink, EOMI, Sclerae nonicteric Neck: Supple, 2+ carotid pulse no bruit, No LAD, Without JVD or thyroid abnormality Respiratory: Clear to auscultation bilaterally, Normal air movement Cardiovascular: Regular rate/rhythm, Normal S1 S2, No murmurs Gastrointestinal: Normal bowel sounds, Soft and benign, Non-distended, No tenderness Musculoskeletal: No clubbing, No swelling, No tenderness Integumentary: No rashes Neurological: Normal speech, Normal tone, Sensation intact, Cranial nerves 3-12 intact, Normal affect, Abnormal gait, Abnormal strength Lymphatics: No axilla or inguinal lymphadenopathy <Tasha Smith - Last Filed: 07/29/23 08:14> Date of Service: 07/29/23 <Yessica Patricio - Last Filed: 07/30/23 00:23> Review of Systems per HPI <Tasha Smith - Last Filed: 07/29/23 08:14> Physical Examination - Vital Signs Temperature: 97.5 F Blood Pressure: 160/72 Pulse: 57 Respirations: 18 Pulse Ox (%): 97 - Studies Laboratory Data (last 24 hrs) 07/28/23 07/28/23 10:44 10:44 WBC 5.90 Hgb 12.2 Hct 35.4 L Plt Count 315 Sodium 124 L Potassium 3.9 BUN 9 Creatinine 1.44 H Glucose 108 H Magnesium 1.6 Total Bilirubin 0.7 AST 255 H ALT 302 H Alkaline Phosphatase 96 <Tasha Smith - Last Filed: 07/29/23 08:14> - Studies Laboratory Data (last 24 hrs) 0407/29/23 07/29/23 06:00 05:25 05:25 WBC 5.20 Hgb 10.7 L D Hct 31.7 L Plt Count 253 Sodium Cancelled 127 L Potassium Cancelled 4.1 BUN Cancelled 8 Creatinine Cancelled 1.14 H Glucose Cancelled 97 Total Bilirubin 0.7 AST 186 H ALT 246 H Alkaline Phosphatase 80 07/29/23 00:43 WBC Hgb Hct Plt Count Sodium 127 L Potassium 4.1 BUN 9 Creatinine 1.20 H Glucose 98 Total Bilirubin AST ALT Alkaline Phosphatase <Yessica Patricio - Last Filed: 07/30/23 00:23> Assessment And Plan - Plan Assessment plan Generalized weakness Recent acute cystitis diagnosis Likely secondary from hyponatremia PT eval UA no leukocytosis Hyponatremia Gentle IV fluids, nephrology consult Urine sodium normal urine creatinine normal 124, 127 Transaminitis Trend liver enzyme Possibly secondary from amiodarone Hepatitis panel nonreactive A-fib RVR rate controlled Telemetry Resume appropriate home meds History of hypertension Hyperlipidemia resume home meds, as needed antihypertensive Full code DVT Diet Cardiac Dispostion, Home Discharge Plan: Home - Code Status/Comfort Care Code Status: Full Code Critical Care: No Time Spent Managing PTS Care (In Minutes): 35 <Tasha Smith - Last Filed: 07/29/23 08:14> - Current Problems (Diagnosis) (1) Generalized weakness Current Visit: Yes Status: Acute (2) Hyponatremia Current Visit: Yes Status: Acute (3) HTN (hypertension) Current Visit: Yes Status: Acute (4) Hypothyroid Current Visit: Yes Status: Acute (5) Atrial fibrillation Current Visit: Yes Status: Acute (6) Elevated ALT measurement Current Visit: Yes Status: Acute (7) Elevated AST (SGOT) Current Visit: Yes Status: Acute <Yessica Patricio - Last Filed: 07/30/23 00:23> Date of Service: 07/29/23 Patient was seen and examined. Events of the last 24 hours have been noted. Spoke with with [facility] regarding patient's clinical picture after evaluating and examining the patient independently. I performed a substantial part of the MDM during this patient's care today. I personally made or approved the documented management plan and acknowledge its risk of complications. I agree with the findings and documentation provided in the EDSON's notes. Patient is hyponatremic and workup pending for hyponatremia. Rule out malignancy with imaging studies. Supplemented with saline and oral sodium. Patient clinically doing well, but she wanted to get working with physical therapy prior to discharge. Arrange for home health with physical therapy at the time of discharge. <Yessica Patricio - Last Filed: 07/30/23 00:23>
[2023-07-29] MEDS: AMLODIPINE 10 MG TAB PO SCH (08:29)
[2023-07-29] MEDS: ATORVASTATIN 10 MG TAB PO SCH (08:29)
[2023-07-29] MEDS: LACTOBACILLUS/ACIDOPHILUS TAB PO SCH (08:31)
[2023-07-29] MEDS: AMLODIPINE 2.5 MG TAB PO SCH (08:31)
[2023-07-29] MEDS: AMIODARONE HCL 200 MG TAB PO SCH (08:31)
[2023-07-29] MEDS: SODIUM CHLORIDE 1 GM TAB PO SCH (21:16)
[2023-07-30 06:41] LABS: Albumin/Globulin Ratio 1.1 (1.1-1.8); Bilirubin Direct 0.3 mg/dL (0-0.2); Bilirubin Indirect, Calculated 0.3 mg/dL (0.2-0.8); Bilirubin Total 0.6 mg/dL (0.2-1.0); Globulin 2.7 g/dL (2.3-3.5); Protein, Total 5.7 g/dL (6.4-8.2)
[2023-07-30 06:44] LABS: Anion Gap 8.8 mEq/L (5.0-15.0); BUN Blood Urea Nitrogen 10 mg/dL (7-18); Bicarbonate 24 mEq/L (21-32); Glomerular Filtration Rate 54 ml/min (=/>90); Glucose Level 89 mg/dL (74-106); Potassium 3.8 mEq/L (3.5-5.1); Sodium Level 130 mEq/L (136-145)
[2023-07-30 07:05] LABS: C-Reactive Protein < 2.90 mg/L (<3.00)
[2023-07-30 07:10] LABS: Magnesium 1.3 mg/dL (1.6-2.4)
--- NOTE | 2023-07-30 08:19 | RAD REPORT ---
EXAM DESCRIPTION: CT - Chest Abdomen Pelvis W Cont - 07/30/2023 6:31 am CLINICAL HISTORY: weight loss; anorexia; weakness COMPARISON: Abdomen Exam Limited dated 07/28/2023; Head C Spine Cap Wo Con dated 09/26/2022 TECHNIQUE: Thin axial CT images of the chest, abdomen, and pelvis, performed following intravenous a dministration of 100mL Isovue- 370. Multiplanar reformats were generated and reviewed. All CT scans are performed using dose optimization technique as appropriate and may include automated exposure control or mA/KV adjustment according to patient size. FINDINGS: The lungs are clear apart from platelike atelectasis of the right lower lobe.No pleural or pericardial effusion.No intrathoracic adenopathy. [id number] atherosclerotic calcifications of the thoracic aorta and dense atherosclerotic calcifications of the proximal left coronary arteries. To the extent evaluated, the pulmonary arteries are patent. Patulous ostium of the left subclavian ar merlin, measuring 1.6 cm in caliber. The liver, spleen, pancreas, adrenal glands and kidneys are within normal limits. Fluid opacification along the proximal colon, without distention or wall thickening. No bowel obstruc tion, free air, free fluid or abscess. Normal appendix. No pathologic lymphadenopathy in the abdomen or pelvis. No worrisome osseous finding. Moderate lumbar spine degenerative changes. IMPRESSION: One no acute abnormalities in the chest, abdomen, or pelvis. No suspicious masses or arlene nopathy. Incidental findings as above.
[2023-07-30] MEDS ORDERED: SIMETHICONE 125 MG TAB PO PRN (11:00)
--- NOTE | 2023-07-30 11:00 | P.PN ---
Subjective Date of Service: 07/30/23 Chief Complaint: Generalized weakness; hyponatremia Subjective: Improving (small bm yesterday) <Shivani Coello - Last Filed: 07/30/23 11:00> Date of Service: 07/30/23 <Trey Martinez - Last Filed: 07/30/23 13:46> Review of Systems 10-point ROS is otherwise unremarkable General: Weakness, As per HPI Neurological: As per HPI <Shivani Coellolen - Last Filed: 07/30/23 11:00> Physical Examination - Vital Signs Temperature: 97.8 F Blood Pressure: 165/73 Pulse: 62 Respirations: 16 Pulse Ox (%): 98 - Physical Exam General: Alert, In no apparent distress, Oriented x3, Other (generally weak) HEENT: Atraumatic, Normocephalic, PERRLA Neck: Supple Respiratory: Normal air movement Cardiovascular: Regular rate/rhythm Capillary refill: <2 Seconds Gastrointestinal: Soft and benign, Non-distended Musculoskeletal: No clubbing, No swelling Neurological: Normal speech, Abnormal strength Lymphatics: No axilla or inguinal lymphadenopathy External genitalia: Deferred Rectal: Deferred <Shivani Coello - Last Filed: 07/30/23 11:00> Assessment And Plan - Plan Problems (Diagnosis) (1) Generalized weakness Current Visit: Yes Status: Acute (2) Hyponatremia Current Visit: Yes Status: Acute (3) HTN (hypertension) Current Visit: Yes Status: Acute (4) Hypothyroid Current Visit: Yes Status: Acute (5) Atrial fibrillation Current Visit: Yes Status: Acute (6) Elevated ALT measurement Current Visit: Yes Status: Acute (7) Elevated AST (SGOT) Current Visit: Yes Status: Acute - Plan Plan: 1. Patient with generalized weakness with secondary hyponatremia; continue with saline and will continue with physical therapy. Check FeNa. Continue with saline at 70cc/hr and repeat basic metabolic profile in 6 hours. Correct about 10mEq/24hrs. Pt repeat Na today 130, renal function stable. 2. Patient with elevated ALT and AST; check hepatitis profile 07/29 - negative hepatitis panel. Monitor LFTs - mild decrease 07/29. Patient is on amiodarone at home and sometimes this can cause elevation of the liver enzymes. Monitor Tylenol intake. 3. History of atrial fibrillation; continue with amiodarone and anticoagulation 4. History of hypertension; continue with antidepressants 5. History of dyslipidemia; adjust statin dosing 6. GI DVT prophylaxis Discharge Plan: Home Plan to discharge in: 24 Hours - Advance Directives Does patient have a Living Will: No Does patient have a Durable POA for Healthcare: No - Code Status/Comfort Care Code Status Assessed: Yes Code Status: Full Code Critical Care: No <Shivani Coello - Last Filed: 07/30/23 11:00> - Plan Pt seen and examined. I agree with the note by the SECURITY PROGRAM MANAGER. Pt still feels weak. NA is improving 130 <- 127. Will continue IVF and trend na level. Monitor LFTs. Will likely dc pt tomorrow. <Trey Martinez - Last Filed: 07/30/23 13:46>
[2023-07-30] MEDS: ENSURE ENLIVE 237 ML CAN PO SCH (20:54)
[2023-07-30 22:37] VITALS: O2SAT 96
[2023-07-31 06:42] LABS: Absolute Eosinophils 0.1 K/uL (0-0.5); Absolute Lymphocytes (CBC) 1.3 K/uL (0.7-4.9); Absolute Monocytes 0.4 K/uL (0.1-1.3); Absolute Neutrophil 2.7 K/uL (1.8-8.0); Eosinophils % 2.3 % (0-4.4); Hematocrit 29.4 % (36.0-45.0); Hemoglobin 9.9 g/dL (12.0-15.0); Lymphocytes % 27.9 % (15.3-44.8); MCH 32.4 pg (27.0-35.0); MCHC 33.7 g/dL (32.0-36.0); MCV 96.2 fL (80-100); Monocytes % 9.7 % (3.3-12.3); Neutrophils % 59.1 % (41.7-73.7); Nucleated Red Blood Cells % 0.1 % (0-0); Platelets 223 thou/uL (152-406); RBC Red Blood Cell Count 3.05 M/uL (3.86-4.86); Red Cell Distribution Width 12.5 % (12.1-15.2)
[2023-07-31 06:56] LABS: Anion Gap 8.9 mEq/L (5.0-15.0); Potassium 3.9 mEq/L (3.5-5.1)
--- NOTE | 2023-07-31 08:59 | P.DS ---
Admission Date: 07/29/23 Discharge Date: 07/31/23 Reason for Admission: Generalized weakness; hyponatremia Brief History of Present Illness: Patient is an 83-year-old female who has been in her normal state of health up until a couple of weeks ago. She has a history of hypertension, hypothyroidism, atrial fibrillation, and prior history of hyponatremia who comes into the emergency room because of generalized weakness. Patient had wanted to see her PCP about a week ago and patient was found to have urinary tract infection as well as an upper respiratory infection. Patient was started on antibiotics- Bactrim. Patient was not really feeling well so they went back into the PCP. Patient was given saline in the doctor's office as well as IV antibiotics. However, she still has not been improving so decided to bring her into the emergency room. In the emergency room patient was found to be hyponatremic with a sodium of 124 and patient had elevated ALT and AST. Patient denies any abdominal pain. She does have some minimal upper and lower extremity edema. Patient also has polydipsia and patient has been drinking a lot of water. Her day-to-day routine consist of waking up in going into her room, but she does not really do a lot of her own ADLs. Her family members help her with her day-to-day routine. At this time, patient will be admitted to the hospital for observation. Hospital Course: Ms. Lea has done well over the course of her hospitalization. Her sodium has improved slowly from 124 to 132. She is taking 2gm sodium chloride tablets twice daily. Ms. Lea may benefit from fluid restriction during the day or possibly taking her Lasix on a more consistent basis. Her liver enzymes have been trending down. Her pravastatin was changed to atorvastatin 10 mg p.o. nightly. She will need laboratory evaluation with follow-up with her PCP in 1 to 2 weeks. <Shivani Coello - Last Filed: 07/31/23 10:37> Admission Date: 07/29/23 Discharge Date: 07/31/23 Hospital Course: Pt seen and examined. I agree with the note by the WORK ADJUSTMENT INSTRUCTOR. Pt is feeling better. She walked around the nursing station. Na improved from 124 to 132. Will dc pt with salt tabs. Continue home meds as prescribed. <Trey Martinez - Last Filed: 07/31/23 13:15> Disposition: ROUTINE DISCHARGE Discharge Condition: GOOD Vital Signs/Physical Exam: Temp Pulse Resp BP Pulse Ox 98.4 F 65 18 134/61 96 07/31/23 04:00 07/31/23 04:00 07/31/23 04:00 07/31/23 04:00 07/31/23 04:00 General: Alert, In no apparent distress, Oriented x3 HEENT: Atraumatic, Normocephalic Neck: JVD not distended Respiratory: Normal air movement Cardiovascular: Normal pulses, Regular rate/rhythm, Systolic murmur Capillary refill: <2 Seconds Gastrointestinal: Soft and benign Musculoskeletal: No clubbing, No swelling Integumentary: No rashes Neurological: Normal speech Lymphatics: No axilla or inguinal lymphadenopathy External genitalia: Deferred Rectal: Deferred Laboratory Data at Discharge: WBC 4.50 thou/uL (4.3-10.9) 07/31/23 06:20 Hgb 9.9 g/dL (12.0-15.0) L 07/31/23 06:20 Hct 29.4 % (36.0-45.0) L 07/31/23 06:20 Plt Count 223 thou/uL (152-406) 07/31/23 06:20 Sodium 132 mEq/L (136-145) L 07/31/23 06:20 Potassium 3.9 mEq/L (3.5-5.1) 07/31/23 06:20 BUN 11 mg/dL (7-18) 07/31/23 06:20 Creatinine 1.04 mg/dL (0.55-1.02) H 07/31/23 06:20 Glucose 98 mg/dL (74-106) 07/31/23 06:20 Magnesium 1.3 mg/dL (1.6-2.4) L 07/30/23 06:13 Total Bilirubin 0.6 mg/dL (0.2-1.0) 07/30/23 06:13 AST 180 U/L (15-37) H 07/30/23 06:13 ALT 239 U/L (13-56) H 07/30/23 06:13 Alkaline Phosphatase 75 U/L (45-117) 07/30/23 06:13 <Coello,Shivani Pal - Last Filed: 07/31/23 10:37> Vital Signs/Physical Exam: Temp Pulse Resp BP Pulse Ox 97.3 F 60 16 139/55 L 99 07/31/23 12:00 07/31/23 12:00 07/31/23 12:00 07/31/23 12:00 07/31/23 12:00 Laboratory Data at Discharge: WBC 4.50 thou/uL (4.3-10.9) 07/31/23 06:20 Hgb 9.9 g/dL (12.0-15.0) L 07/31/23 06:20 Hct 29.4 % (36.0-45.0) L 07/31/23 06:20 Plt Count 223 thou/uL (152-406) 07/31/23 06:20 Sodium 132 mEq/L (136-145) L 07/31/23 06:20 Potassium 3.9 mEq/L (3.5-5.1) 07/31/23 06:20 BUN 11 mg/dL (7-18) 07/31/23 06:20 Creatinine 1.04 mg/dL (0.55-1.02) H 07/31/23 06:20 Glucose 98 mg/dL (74-106) 07/31/23 06:20 Magnesium Cancelled 07/31/23 12:54 Total Bilirubin 0.6 mg/dL (0.2-1.0) 07/30/23 06:13 AST 180 U/L (15-37) H 07/30/23 06:13 ALT 239 U/L (13-56) H 07/30/23 06:13 Alkaline Phosphatase 75 U/L (45-117) 07/30/23 06:13 <Trey Martinez - Last Filed: 07/31/23 13:15> Diet: AHA Activity: Fall precautions <Coello,Shivani Pal - Last Filed: 07/31/23 10:37> <Trey Martinez - Last Filed: 07/31/23 13:15> Home Medications: Edoxaban Tosylate [Savaysa] 60 mg PO DAILY 09/26/22 Furosemide [Lasix*] 20 mg PO DAILYPRN PRN 09/26/22 Levothyroxine Sodium 30 mcg PO DAILY 09/26/22 Lisinopril [Zestril] 2.5 mg PO DAILY 09/26/22 Losartan Potassium 100 mg PO DAILY 09/26/22 clonazePAM [Clonazepam] 1 mg PO BEDTIME 09/26/22 Budesonide [Budesonide ER] 9 mg PO PRN PRN 07/28/23 Multivit-Min/Iron/Folic/Lutein [Centrum Silver Women Tablet] 1 tab PO DAILY 07/28/23 Saccharomyces Boulardii [Probiotic] 1 cap PO DAILY 07/28/23 Amiodarone HCl [Cordarone*] 200 mg PO DAILY tab 07/31/23 Amlodipine [Norvasc*] 2.5 mg PO DAILY tab 07/31/23 Atorvastatin Calcium [Lipitor*] 10 mg PO DAILY #90 tab 07/31/23 Ensure Enlive 237 ml PO BID #10 can 07/31/23 Losartan Potassium [Cozaar*] 50 mg PO BID #0 07/31/23 Sodium Chloride Tab [Sodium Chloride*] 2 gm PO BID #8 tab 07/31/23 New Medications: Ensure Enlive 237 ml PO BID #10 can Atorvastatin Calcium [Lipitor*] 10 mg PO DAILY #90 tab Sodium Chloride Tab [Sodium Chloride*] 2 gm PO BID #8 tab Physician Discharge Instructions: Okay to DC IV and DC home Follow-up with primary care provider in 1 to 2 weeks Follow-up with cardiology in 1 to 2-week Please call the inpatient unit for any questions or concerns regarding hospital stay Return to the ER for worsening symptoms Patient is an 83-year-old female who has been in her normal state of health up until a couple of weeks ago. She has a history of hypertension, hypothyroidism, atrial fibrillation, and prior history of hyponatremia who comes into the [facility] room because of generalized weakness. Patient had wanted to see her PCP about a week ago and patient was found to have urinary tract infection as well as an upper respiratory infection. Patient was started on antibiotics-Bactrim. Patient was not really feeling well so they went back into the PCP. Patient was given saline in the doctor's office as well as IV antibiotics. However, she sti ll has not been improving so decided to bring her into the emergency room. In the emergency room patient was found to be hyponatremic with a sodium of 124 and patient had elevated ALT and AST. Patient denies any abdominal pain. She does have some minimal upper and lower extremity edema. Patient also has polydipsia and patient has been drinking a lot of water. Her day-to-day routine consist of waking up in going into her room, but she does not really do a lot of her own ADLs. Her family members help her with her day-to-day routine. Ms. Lea has done well over the course of her hospitalization. Her sodium has improved slowly from 124 to 132. She is taking 2gm sodium chloride tablets twice daily. We will continue this for 2 additional days. Ms. Lea may benefit from fluid restriction during the day or possibly taking her Lasix on a more consistent basis. Her liver enzymes have been trending down. Her pravastatin was changed to atorvastatin 10 mg p.o. nightly. She will need laboratory evaluation with follow-up with her PCP in 1 to 2 weeks. Followup: Francesco Acevedo MD [ACTIVE - CAN ADMIT] - 1-2 Weeks Yojana Lewis NP [Primary Care Provider] - 1-2 Weeks
[2023-07-31] MEDS: EDOXABAN TOSYLATE 60 MG PO SCH (09:00)
[2023-07-31 12:24] VITALS: BP 139/55; TEMP 97.3
[2023-07-31] MEDS: MAGNESIUM SULFATE 1 gm IVPB 1 GM/100 ML BAG IV ONE (13:23)
[2023-07-31] MEDS: MAGNESIUM OXIDE 400 MG TAB PO ONE (15:10)
--- NOTE | 2023-08-02 16:50 | EKG ---
Test Date: 2023-07-31 Test Time: 12:39:43 Collections Associate: KIRA MEASUREMENT RESULTS: Intervals: Rate: 63 CT: QRSD: 180 QT: 560 QTc: 573 [place]: P: CT: QRS: 24 T: 55 INTERPRETIVE STATEMENTS: Sinus rhythm Nonspecific intraventricular block Possible Lateral infarct, age undetermined Abnormal ECG Compared to ECG 07/28/2023 11:33:55 First degree AV block no longer present Myocardial infarct finding still present Electronically Signed On 08-02-23 16:43:19 CDT by Francesco Acevedo
--- NOTE | 2023-08-02 17:08 | EKG ---
Test Date: 2023-07-28 Test Time: 11:33:55 Assembly Instructions Writer: FAVIOLA MEASUREMENT RESULTS: Intervals: Rate: 66 TX: 236 QRSD: 92 QT: 424 QTc: 444 [place]: P: 92 TX: 236 QRS: 20 T: 75 INTERPRETIVE STATEMENTS: Sinus rhythm with 1st degree AV block Anteroseptal infarct, age undetermined Abnormal ECG Compared to ECG 09/26/2022 16:18:15 ST (T wave) deviation no longer present Possible ischemia no longer present Prolonged QT interval no longer present Myocardial infarct finding still present Electronically Signed On 08-02-23 16:48:49 CDT by Francesco Acevedo
== END 2023-07-31 15:41 | disposition home or self-care (01) | DRG 641 ==
LOC: ER 10:10 → ERHOLD 14:32 → 4TH 16:09 → OBSVTOIN 07-29 08:20
PROVIDERS: ADMIT Hospitalist; ATTEND Hospitalist
DX: E87.1 Hypo-osmolality and hyponatremia (principal); R53.1 Weakness; I10 Essential (primary) hypertension; E03.9 Hypothyroidism, unspecified; I48.91 Unspecified atrial fibrillation; R74.01 Elevation of levels of liver transaminase levels; E78.5 Hyperlipidemia, unspecified; R63.1 Polydipsia; R60.0 Localized edema; Z79.899 Other long term (current) drug therapy; Z88.8 Allergy status to other drugs, medicaments and biological substances; Z87.891 Personal history of nicotine dependence
CPT/HCPCS: 36415; 71045; 71260; 74177; 76705; 80048; 80053; 80074; 80076; 81001; 82533; 82550; 82570; 82607; 83540; 83735; 84300; 84439; 84443; 84484; 85025; 86140; 93005; 97116; 97161; 97530; 99285; G0378; J0360; J3475; J7030; Q9967